=== PATIENT | male | born 1975 | race Caucasian/White ===

== ENCOUNTER → 2020-05-06 13:11 | Outpatient (BNVA) | payer BC, SELFPAY | PROVIDERS: PCP Internal Medicine; Referring Provider Internal Medicine; Visit Provider Physician Assistant | DX: Z76.89 Persons encountering health services in other specified circumstances (principal) ==

== ENCOUNTER → 2020-05-08 11:49 | Outpatient (BNVA) | payer BC, SELFPAY | PROVIDERS: PCP Internal Medicine; Referring Provider Internal Medicine; Visit Provider Physician Assistant | DX: Z76.89 Persons encountering health services in other specified circumstances (principal) ==

== ENCOUNTER 2020-06-26 07:12 | Outpatient (REF) | payer BC, SELFPAY | END 2020-06-26 07:13 | disposition home or self-care (01) | LOC: HO.LAB 07:12 | PROVIDERS: Visit Provider Internal Medicine | DX: Z20.828 Contact with and (suspected) exposure to other viral communicable diseases (principal) | CPT/HCPCS: C9803; U0003 ==

== ENCOUNTER 2020-09-25 07:31 | Outpatient (REF) | payer BC, SELFPAY | END 2020-09-25 07:32 | disposition home or self-care (01) | LOC: HO.WFDLDS 07:31 | PROVIDERS: PCP Nurse Practitioner Family; Visit Provider Internal Medicine | DX: Z20.822 Contact with and (suspected) exposure to COVID-19 (principal) | CPT/HCPCS: 36415; C9803; U0003; U0005 ==

== ENCOUNTER 2021-07-10 09:42 | Outpatient (REF) | payer OTHER, SELFPAY ==
[2021-07-10 12:24] LABS: Alanine Aminotransferase 62 U/L (0-40); Albumin Level 4.2 g/dL (3.5-5.0); Alkaline Phosphatase 98 U/L (39-117); Anion Gap 11 (12-20); Aspartate Amino Transferase 31 U/L (5-37); Bilirubin Total 0.9 mg/dL (0.0-1.0); Blood Urea Nitrogen 21 mg/dL (9-16); Calcium 9.7 mg/dL (8.4-10.2); Carbon Dioxide 26 mmol/L (22-29); Chloride 107 mmol/L (96-108); Cholesterol 213 mg/dL; Estimated Glomerular Filt Rate 59; Glucose Fasting 99 mg/dL (60-99); HDL Cholesterol 35 mg/dL; LDL Cholesterol Calculated 145 mg/dl; Potassium 4.3 mmol/L (3.3-5.1); Sodium 140 mmol/L (135-145); Total Protein 7.2 g/dL (6.5-8.0); Triglycerides 167 mg/dL
[2021-07-10 12:39] LABS: PSA,Total (Free>4and<10) 0.76 ng/mL (0.00-4.00)
[2021-07-10 12:45] LABS: TSH reflex Free T4 1.45 uIU/mL (0.32-4.0)
[2021-07-11 03:56] LABS: SARS COV2 IgG Negative (Negative)
[2021-07-11 04:36] LABS: Hepatitis A Antibody IgM 0.28 Index (0-0.79); ~Hepatitis A Antibody IgM Nonreactive (Nonreactive); ~Hepatitis B Surface Antibody NONREACTIVE (Nonreactive)
[2021-07-11 05:06] LABS: HBc Num1 0.16 S/CO (0.00-0.79); HBsAGNum1 0.18 S/CO (0.00-0.99); Hepatitis B Core Antibody Nonreactive (Nonreactive); Hepatitis B Surface Antigen Negative (Negative); ~HepC Num1 0.21 S/CO (0.00-0.79); ~Hepatitis C Antibody Nonreactive (Nonreactive)
[2021-07-12 05:31] LABS: Rubella IgG Antibody >33.00 Index
[2021-07-16 16:41] LABS: Testosterone, Free 92.6 pg/mL (35.0-155.0); Testosterone, Total 423 ng/dL (250-1100)
== END 2021-07-10 09:43 | disposition home or self-care (01) ==
LOC: HO.WFDLDS 09:42
PROVIDERS: Absent Provider Nurse Practitioner Family; Visit Provider Urology
DX: Z00.00 Encounter for general adult medical examination without abnormal findings (principal); Z12.5 Encounter for screening for malignant neoplasm of prostate; Z20.822 Contact with and (suspected) exposure to COVID-19; E29.1 Testicular hypofunction; Z28.3 Underimmunization status; Z80.42 Family history of malignant neoplasm of prostate
CPT/HCPCS: 36415; 80053; 80061; 84153; 84402; 84403; 84443; 86704; 86706; 86709; 86735; 86762; 86765; 86769; 86787; 86803; 87340

== ENCOUNTER → 2021-07-20 11:29 | Outpatient (BNVA) | payer OTHER, SELFPAY | PROVIDERS: PCP Nurse Practitioner Family; Visit Provider Urology | DX: E29.1 Testicular hypofunction (principal) | CPT/HCPCS: 99212 ==

== ENCOUNTER 2021-09-03 10:24 | Outpatient (REF) | payer OTHER, SELFPAY ==
--- NOTE | ~2021-09-03 | US_ITS ---
EXAMINATION: US ABDOMEN COMPLETE CLINICAL INFORMATION: Abnormal levels of other serum enzymes. COMPARISON: Abdominal ultrasound complete 01/29/2018. TECHNIQUE: Real-time imaging of the abdominal viscera. Technically limited study secondary to bowel gas. FINDINGS: PANCREAS: Not visualized due to bowel gas ABDOMINAL AORTA: The proximal, mid, and distal segments are normal in caliber. INFERIOR VENA CAVA: Visualized portions are normal. LIVER: The liver is normal in size. The liver contour is normal. Liver echotexture is increased probably representing fatty infiltration. There is a hypoechoic area adjacent to the gallbladder, a characteristic location of focal fatty sparing. There is a 1.4 x 2 x 1.6 cm cyst in the right lobe of the liver. There is no intrahepatic biliary duct dilatation seen. GALLBLADDER: Normal. The gallbladder is physiologically distended without evidence of stones, sludge, polyps, wall thickening or pericholecystic fluid. COMMON BILE DUCT: Normal in caliber measuring 0.3 cm in diameter. RIGHT KIDNEY: Normal. No hydronephrosis. No renal calculi or focal parenchymal lesions. The kidney measures 11.2 cm in maximum dimension. LEFT KIDNEY: There is a 1.1 x 0.7 x 1 cm cyst in the midpole. No hydronephrosis or renal calculi. The kidney measures 12.1 cm in maximum dimension. SPLEEN: Normal. The spleen measures 12.3 cm in maximum dimension. FREE FLUID: None. US/US abdomen complete IMPRESSION: Echogenic liver probably representing fatty infiltration. Liver and left renal cysts. Limited visualization of the pancreas.
== END 2021-09-03 10:25 | disposition home or self-care (01) ==
LOC: HO.HMGCX 10:24
PROVIDERS: PCP Nurse Practitioner Family; Visit Provider Nurse Practitioner Family
DX: R74.8 Abnormal levels of other serum enzymes (principal)
CPT/HCPCS: 76700

== ENCOUNTER → 2021-11-05 15:34 | Outpatient (BNVA) | payer OTHER, SELFPAY | PROVIDERS: PCP Nurse Practitioner Family; Visit Provider Nurse Practitioner Family | DX: K76.89 Other specified diseases of liver (principal); R74.8 Abnormal levels of other serum enzymes | CPT/HCPCS: 99202 ==

== ENCOUNTER 2021-11-16 08:33 | Outpatient (REF) | payer OTHER, SELFPAY ==
[2021-11-16 11:53] LABS: Alanine Aminotransferase 36 U/L (0-40); Albumin Level 4.1 g/dL (3.5-5.0); Alkaline Phosphatase 83 U/L (39-117); Aspartate Amino Transferase 26 U/L (5-37); Bilirubin Direct 0.2 mg/dL (0.0-0.5); Bilirubin Total 0.6 mg/dL (0.0-1.0); Blood Urea Nitrogen 21 mg/dL (9-16); C Reactive Protein 0.07 mg/dL (< or = 0.50); Estimated Glomerular Filt Rate 59; Lipase 33 U/L (8-78)
[2021-11-16 11:55] LABS: Ferritin 141 ng/mL (20-250)
[2021-11-16 12:11] LABS: Folate 12.9 ng/mL (> or = 4.0); Vitamin B12 431 pg/mL (200-900)
[2021-11-20 12:42] LABS: Alpha Fetoprotein 3.5 ng/mL (<6.1)
[2021-11-20 18:36] LABS: FIB-ALT 33 U/L (9-46); FIB-Alpha-2-Macroglobulin 141 mg/dL (106-279); FIB-Apolipoprotein A1 111 mg/dL (94-176); FIB-GGT 48 U/L (3-95); FIB-Haptoglobin 75 mg/dL (43-212); FIB-Total Bilirubin 0.6 mg/dL (0.2-1.2); Liver Fibrosis Score 0.29; Liver Fibrosis Stage F1; Nec Inflam Act Grade A0; Nec Inflam Act Score 0.17
[2021-11-22 15:41] LABS: Vitamin D 25-OH, D2 <4 ng/mL; Vitamin D 25-OH, D3 22 ng/mL; Vitamin D 25-OH, Total 22 ng/mL (30-100)
== END 2021-11-16 08:34 | disposition home or self-care (01) ==
LOC: HO.HMGCLDS 08:33
PROVIDERS: PCP Nurse Practitioner Family; Visit Provider Nurse Practitioner Family
DX: R10.11 Right upper quadrant pain (principal); R19.7 Diarrhea, unspecified; R79.89 Other specified abnormal findings of blood chemistry; E55.9 Vitamin D deficiency, unspecified; K58.9 Irritable bowel syndrome, unspecified; R74.8 Abnormal levels of other serum enzymes
CPT/HCPCS: 36415; 80076; 81596; 82105; 82306; 82565; 82607; 82728; 82746; 83690; 84520; 86140

== ENCOUNTER 2021-11-22 17:43 | Outpatient (REF) | payer OTHER, SELFPAY ==
--- NOTE | ~2021-11-22 | MR_ITS ---
EXAMINATION: MR ABDOMEN WITHOUT AND WITH CONTRAST CLINICAL INFORMATION: Abdominal pain. Liver disease. COMPARISON: Previous abdominal ultrasound August 2021 TECHNIQUE: MR abdomen was performed without and with use of 10 mL intravenous Gadavist gadolinium contrast. Postcontrast images are performed in multiphase dynamic sequences. Imaging was performed in 3 planes. FINDINGS: LUNG BASES: The visualized lung bases are unremarkable. LIVER, GALLBLADDER, AND BILIARY TREE: The liver is normal in size, smooth in contour, and normal in signal. There is fatty infiltration of the liver. There are several small liver cysts, largest measuring 1.5 x 2.2 cm in the anterior segment of the right lobe of the liver. There is linear low signal seen in the peripheral lateral segment of the left lobe. It is uncertain whether this could correspond to pneumobilia or calcification. Parasitic disease of the liver could also be considered. No corresponding abnormality is seen on ultrasound. This could be better delineated by CT. The gallbladder is normal. There is no intra or extrahepatic biliary duct dilatation. PANCREAS: Unremarkable. SPLEEN: Normal. ADRENAL GLANDS: Normal. KIDNEYS AND URETERS: The kidneys are normal in size, shape, and enhance symmetrically. No hydronephrosis. There is a small cyst in the left kidney. The kidneys are otherwise normal. No perinephric stranding. GASTROINTESTINAL TRACT: There is mild diverticulosis of the colon. No ascites or fluid collection. ABDOMINAL WALL: No significant hernia is appreciated. LYMPH NODES: No lymphadenopathy. VASCULAR: Unremarkable. OSSEOUS STRUCTURES: Marrow signal normal. There is degenerative disc disease. MR/MR abdomen wo/w con IMPRESSION: Fatty liver. Liver and left renal cysts. Linear branching low signal in the peripheral lateral segment of the left lobe of the liver. Differential would include pneumobilia, calcification and possibly a parasitic disease. No corresponding abnormality is seen on prior ultrasound. This could be better delineated with CT scan of the liver is clinically indicated.
== END 2021-11-22 17:44 | disposition home or self-care (01) ==
LOC: HO.MRI 17:43
PROVIDERS: Visit Provider Nurse Practitioner Family
DX: K76.89 Other specified diseases of liver (principal)
CPT/HCPCS: 74183; A9585

== ENCOUNTER → 2022-01-14 16:10 | Outpatient (BNVA) | payer OTHER, SELFPAY | PROVIDERS: PCP Nurse Practitioner Family; Visit Provider Nurse Practitioner Family | DX: K76.89 Other specified diseases of liver (principal); R74.01 Elevation of levels of liver transaminase levels | CPT/HCPCS: 99212 ==

== ENCOUNTER 2022-01-16 07:16 | Outpatient (REF) | payer OTHER, SELFPAY ==
[2022-01-16 10:55] LABS: Hemoglobin 18.5 g/dl (14.0-18.0); Mean Corpuscular HGB Conc 33.3 g/dl (31.0-36.0); Mean Corpuscular Hemoglobin 31.1 pg (27.0-33.0); Mean Corpuscular Volume 93.4 fL (80.0-98.0); Mean Platelet Volume 11.2 fL (9.4-12.4); Platelet Count 145 X10*3/uL (160-400); Red Blood Count 5.95 X10*6/uL (4.60-5.80); Red Cell Distribution Width 12.4 % (11.0-16.0); White Blood Count 5.4 X10*3/uL (4.8-10.8)
[2022-01-16 10:56] LABS: Hematocrit 55.6 % (42.0-52.0)
[2022-01-16 11:31] LABS: Prostate Specific Antigen 0.68 ng/mL (<0.05-4.0)
[2022-01-22 13:21] LABS: Testosterone, Total 622 ng/dL (250-1100)
== END 2022-01-16 07:17 | disposition home or self-care (01) ==
LOC: HO.WFDLDS 07:16
PROVIDERS: Visit Provider Urology
DX: Z12.5 Encounter for screening for malignant neoplasm of prostate (principal); E29.1 Testicular hypofunction
CPT/HCPCS: 36415; 84153; 84403; 85027

== ENCOUNTER → 2022-05-20 16:08 | Outpatient (BNVA) | payer OTHER, MEDICAID, SELFPAY | PROVIDERS: PCP Nurse Practitioner Family; Visit Provider Nurse Practitioner Family | DX: K76.89 Other specified diseases of liver (principal) | CPT/HCPCS: 99212 ==

== ENCOUNTER 2022-07-17 08:50 | Outpatient (REF) | payer OTHER, SELFPAY ==
[2022-07-17 11:21] LABS: Hematocrit 53.4 % (42.0-52.0)
[2022-07-23 13:13] LABS: Testosterone, Total 670 ng/dL (250-1100)
== END 2022-07-17 08:51 | disposition home or self-care (01) ==
LOC: HO.WFDLDS 08:50
PROVIDERS: Visit Provider Urology
DX: Z12.5 Encounter for screening for malignant neoplasm of prostate (principal); E29.1 Testicular hypofunction
CPT/HCPCS: 36415; 84153; 84403; 85014

== ENCOUNTER → 2022-07-30 10:22 | Outpatient (BNVA) | payer OTHER, MEDICAID, SELFPAY | PROVIDERS: PCP Nurse Practitioner Family; Visit Provider Urology | DX: E29.1 Testicular hypofunction (principal) ==

== ENCOUNTER 2022-08-09 09:37 | Outpatient (REF) | payer OTHER, SELFPAY ==
[2022-08-09 12:15] LABS: Blood Urea Nitrogen 24 mg/dL (9-16); Estimated Glomerular Filt Rate 53
== END 2022-08-09 09:38 | disposition home or self-care (01) ==
LOC: HO.WFDLDS 09:37
PROVIDERS: Visit Provider Nurse Practitioner Family
DX: R10.11 Right upper quadrant pain (principal)
CPT/HCPCS: 36415; 82565; 84520

== ENCOUNTER 2022-10-21 15:08 | Outpatient (REF) | payer OTHER, SELFPAY ==
--- NOTE | ~2022-10-21 | CT_ITS ---
EXAMINATION: CT ABDOMEN AND PELVIS WITH CONTRAST CLINICAL INFORMATION: Fatty liver. Liver and left renal cyst. COMPARISON: MRI abdomen 11/26/2021. TECHNIQUE: Multidetector volumetric images were obtained from the superior aspect of the liver through the pubic symphysis following administration 85 mL of Omnipaque 350 intravenous contrast. Sagittal and coronal reformatted images were obtained on the technologist's workstation. Oral contrast: No This CT examination was performed using dose optimization techniques as appropriate, variously including the following: *Automated exposure control *Adjustment of mA and/or kV according to patient size (this includes techniques or standardized protocols for targeted exams where dose is matched to indication/reason for exam; i.e. extremities or head) *Use of iterative reconstruction technique DLP: 416 mGy-cm. FINDINGS: LUNG BASES: The visualized lung bases are unremarkable. LIVER, GALLBLADDER, AND BILIARY TREE: The liver is normal in size, shape, and attenuation. There are small hypodense lesions in the right lobe, largest measuring 2.4 cm and 17 also units likely simple cysts. No abnormality seen in the left hepatic lobe as was questioned on the previous MRI. No calcification seen. The gallbladder is unremarkable with no evidence of radiopaque gallstones, gallbladder wall thickening, or obvious pericholecystic inflammatory changes. PANCREAS: Unremarkable. SPLEEN: Unremarkable. ADRENAL GLANDS: Unremarkable. KIDNEYS AND URETERS: The kidneys are normal in size, shape, and attenuation. No hydronephrosis, hydroureter, or calculi seen. No perinephric stranding. BLADDER: Unremarkable. GASTROINTESTINAL TRACT: There is moderate scattered stool in the colon without any significant distention. The small bowel loops are normal caliber. Appendix is normal caliber. ABDOMINAL WALL: No significant hernia is appreciated. LYMPH NODES: Normal. VASCULAR: There is arthroscopic calcification of abdominal aorta without aneurysmal dilatation. PELVIC VISCERA: No free fluid or free air seen. There is moderate prostatomegaly with central gland calcification. OSSEOUS STRUCTURES: No aggressive lytic or sclerotic process seen. CT/CT abdomen pelvis w IV con IMPRESSION: 1. No abnormality seen in the left hepatic lobe as was questioned on the previous MRI. There are 2 small hypodense lesions in the right lobe likely cysts. 2. Mild constipation. 3. Moderate prostatomegaly with central gland calcification. Fleischner guidelines were followed.
[2022-10-21] MEDS: iohexoL 350 MG/ML 100 ML INFUS..BTL IV (15:36)
[2022-10-23 11:20] LABS: Creatinine POC 1.2 mg/dL (0.5-1.4); GFR POC > 60
== END 2022-10-21 15:09 | disposition home or self-care (01) ==
LOC: HO.CT 15:08
PROVIDERS: Visit Provider Nurse Practitioner Family
DX: K76.89 Other specified diseases of liver (principal)
CPT/HCPCS: 74177; 82565; Q9967

== ENCOUNTER 2022-11-15 10:24 | Outpatient (REF) | payer OTHER, SELFPAY ==
--- NOTE | ~2022-11-15 | US_ITS ---
EXAMINATION: US ABDOMEN LIMITED CLINICAL INFORMATION: Liver cyst. COMPARISON: CT abdomen and pelvis 10/21/2022. MRI abdomen 11/22/2021. Ultrasound abdomen complete 09/03/2021 and 01/29/2018. TECHNIQUE: Real-time imaging of the right upper quadrant abdominal viscera. FINDINGS: PANCREAS: Largely obscured by overlapping bowel gas. LIVER: The liver is normal in size. The liver contour is normal. There is diffuse increased liver parenchymal echogenicity. Within the right hepatic lobe, a 2.0 x 2.4 x 2.5 cm lobulated simple cyst is redemonstrated, consistent with prior MRI findings. This shows no associated color Doppler flow. There is no intrahepatic biliary duct dilatation seen. GALLBLADDER: Normal. The gallbladder is physiologically distended without evidence of stones, sludge, polyps, wall thickening or pericholecystic fluid. COMMON BILE DUCT: Normal in caliber measuring 0.5 cm in diameter. RIGHT KIDNEY: Normal. No hydronephrosis. No renal calculi or focal parenchymal lesions. The kidney measures 11.3 cm in maximum dimension. FREE FLUID: None. US/US abdomen limited IMPRESSION: 1. There is generalized increase in hepatic echotexture, consistent with fatty infiltration or hepatocellular disease. Please correlate clinically. No focal hepatic mass or intrahepatic biliary dilatation is seen. 2. A 2.5 cm benign, simple cyst is redemonstrated within the anterior segment of the right hepatic lobe.
[2022-11-15 13:55] LABS: MANUAL DIFF FLAG NO
[2022-11-15 14:13] LABS: Basophils Percent Auto 0.5 % (0-2); Eosinophils Absolute Auto 0.1 X10*3/uL (0.0-0.4); Eosinophils Percent Auto 1.4 % (0-4); Hematocrit 53.9 % (42.0-52.0); Hemoglobin 18.4 g/dl (14.0-18.0); Imm Gran Abs Auto 0.04 X10*3/uL (0.00-0.03); Imm Gran Pct Auto 0.6 % (0.0-0.4); Lymphocytes Absolute Auto 1.2 X10*3/uL (1.2-4.9); Lymphocytes Percent Auto 18.4 % (20-40); Mean Corpuscular HGB Conc 34.1 g/dl (31.0-36.0); Mean Corpuscular Hemoglobin 31.8 pg (27.0-33.0); Mean Corpuscular Volume 93.1 fL (80.0-98.0); Mean Platelet Volume 11.9 fL (9.4-12.4); Monocytes Absolute Auto 1.2 X10*3/uL (0.1-1.2); Monocytes Percent Auto 18.7 % (2-11); Neutrophils Percent Auto 60.4 % (45-73); Platelet Count 111 X10*3/uL (160-400); Red Blood Count 5.79 X10*6/uL (4.60-5.80); Red Cell Distribution Width 12.7 % (11.0-16.0); White Blood Count 6.6 X10*3/uL (4.8-10.8)
[2022-11-15 14:16] LABS: Appearance Urine Clear; Color Urine Dark Yellow; Glucose Urine UA Negative (Negative); Leukocyte Esterase Urine Negative (Negative); Nitrite Urine Negative (Negative); Specific Gravity - Urine >= 1.030 (1.005-1.025); Urine Blood Negative (Negative); Urine Ketones Trace mg/dL (Negative); Urine Protein Trace mg/dL (Neg-Trace)
[2022-11-15 14:31] LABS: Alanine Aminotransferase 39 U/L (0-40); Alkaline Phosphatase 85 U/L (39-117); Anion Gap 12 (12-20); Aspartate Amino Transferase 26 U/L (5-37); Bilirubin Direct 0.2 mg/dL (0.0-0.5); Bilirubin Total 0.8 mg/dL (0.0-1.0); Blood Urea Nitrogen 18 mg/dL (9-16); Calcium 8.9 mg/dL (8.4-10.2); Carbon Dioxide 26 mmol/L (22-29); Chloride 108 mmol/L (96-108); Cholesterol 196 mg/dL; Estimated Glomerular Filt Rate 46; Glucose Fasting 87 mg/dL (60-99); HDL Cholesterol 31 mg/dL; LDL Cholesterol Calculated 142 mg/dl; Potassium 4.4 mmol/L (3.3-5.1); Sodium 142 mmol/L (135-145); Total Protein 6.7 g/dL (6.5-8.0); Triglycerides 118 mg/dL
[2022-11-15 14:48] LABS: TSH reflex Free T4 1.21 uIU/mL (0.32-4.0)
== END 2022-11-15 10:25 | disposition home or self-care (01) ==
LOC: HO.HMGCX 10:24
PROVIDERS: Absent Provider Nurse Practitioner Family; PCP Nurse Practitioner Family; Visit Provider Nurse Practitioner Family
DX: Z00.00 Encounter for general adult medical examination without abnormal findings (principal); K76.89 Other specified diseases of liver
CPT/HCPCS: 36415; 76705; 80053; 80061; 80076; 81003; 82248; 84443; 85025

== ENCOUNTER → 2022-11-20 14:48 | Outpatient (BNVA) | payer OTHER, SELFPAY | PROVIDERS: PCP Nurse Practitioner Family; Visit Provider Nurse Practitioner Family | DX: Z12.11 Encounter for screening for malignant neoplasm of colon (principal); K76.89 Other specified diseases of liver; D58.2 Other hemoglobinopathies; R74.8 Abnormal levels of other serum enzymes | CPT/HCPCS: 99212 ==

== ENCOUNTER 2023-03-12 09:28 | Outpatient (REF) | payer OTHER, SELFPAY ==
[2023-03-12 11:29] LABS: MANUAL DIFF FLAG NO
[2023-03-12 11:52] LABS: Basophils Percent Auto 0.4 % (0-2); Eosinophils Absolute Auto 0.1 X10*3/uL (0.0-0.4); Eosinophils Percent Auto 0.9 % (0-4); Hemoglobin 19.1 g/dl (14.0-18.0); Imm Gran Abs Auto 0.06 X10*3/uL (0.00-0.03); Imm Gran Pct Auto 0.9 % (0.0-0.4); Lymphocytes Absolute Auto 1.3 X10*3/uL (1.2-4.9); Lymphocytes Percent Auto 19.2 % (20-40); Mean Corpuscular HGB Conc 34.2 g/dl (31.0-36.0); Mean Corpuscular Hemoglobin 31.9 pg (27.0-33.0); Mean Corpuscular Volume 93.3 fL (80.0-98.0); Mean Platelet Volume 11.6 fL (9.4-12.4); Monocytes Absolute Auto 0.7 X10*3/uL (0.1-1.2); Neutrophils Absolute Auto 4.7 x10*3/uL (2.0-8.3); Neutrophils Percent Auto 68.6 % (45-73); Platelet Count 139 X10*3/uL (160-400); Red Blood Count 5.99 X10*6/uL (4.60-5.80); Red Cell Distribution Width 12.5 % (11.0-16.0); White Blood Count 6.8 X10*3/uL (4.8-10.8)
[2023-03-12 11:54] LABS: Hematocrit 55.9 % (42.0-52.0)
[2023-03-12 11:59] LABS: Appearance Urine Clear; Color Urine Yellow; Glucose Urine UA Negative (Negative); Leukocyte Esterase Urine Negative (Negative); Nitrite Urine Negative (Negative); PH 6.5 (5.0-9.0); Urine Blood Negative (Negative); Urine Ketones Negative (Negative); Urine Protein Negative (Neg-Trace)
[2023-03-12 12:30] LABS: Alanine Aminotransferase 42 U/L (0-40); Albumin Level 4.1 g/dL (3.5-5.0); Alkaline Phosphatase 74 U/L (39-117); Anion Gap 12 (12-20); Aspartate Amino Transferase 28 U/L (5-37); Bilirubin Total 0.6 mg/dL (0.0-1.0); Blood Urea Nitrogen 19 mg/dL (9-16); Calcium 9.2 mg/dL (8.4-10.2); Carbon Dioxide 24 mmol/L (22-29); Chloride 109 mmol/L (96-108); Cholesterol 230 mg/dL; Estimated Glomerular Filt Rate > 60; Glucose Fasting 96 mg/dL (60-99); Glucose Random 95 mg/dL (60-115); HDL Cholesterol 42 mg/dL; LDL Cholesterol Calculated 169 mg/dl; Potassium 4.4 mmol/L (3.3-5.1); Sodium 141 mmol/L (135-145); Total Protein 7.2 g/dL (6.5-8.0); Triglycerides 96 mg/dL
[2023-03-12 12:38] LABS: Prostate Specific Antigen 0.71 ng/mL (<0.05-4.0)
[2023-03-18 10:28] LABS: Testosterone, Total 885 ng/dL (250-1100)
== END 2023-03-12 09:29 | disposition home or self-care (01) ==
LOC: HO.WFDLDS 09:28
PROVIDERS: Nurse Practitioner Family; Visit Provider Urology
DX: Z00.00 Encounter for general adult medical examination without abnormal findings (principal); Z12.5 Encounter for screening for malignant neoplasm of prostate; D58.2 Other hemoglobinopathies; E29.1 Testicular hypofunction
CPT/HCPCS: 36415; 80053; 80061; 81003; 81219; 81270; 81279; 81339; 84153; 84403; 84443; 85025

== ENCOUNTER 2023-04-15 11:49 | Outpatient (AMB) | payer OTHER, SELFPAY ==
--- NOTE | 2023-04-15 11:49 | A.OFFVIS_ITS ---
Intake Intake Visit Reasons: 6M PSA/Testosterone(set) Intake Note: Patient presents for Tele Visit follow up PSA/Testosterone (psa 0.71) (testosterone 885) Urology Medication: Sildenafil, Testosterone Blood Thinner: None Press Bucker Required: No Allergies No Known Allergies Allergy (Verified 04/15/23 22:09) Medication List - Last Reconciled 04/15/23 by THIERNO ThurmanP- amlodipine 10 mg PO DAILY bempedoic acid-ezetimibe 180-10 mg 1 tab PO DAILY bisacodyl (Dulcolax (bisacodyl)) 10 mg (2 x 5 mg) PO ONCE 1 day lisinopril 5 mg PO DAILY needle (disp) 25 gauge (BD Regular Bevel [place]) As directed for testosterone injection polyethylene glycol 3350 (Miralax) 238 grams PO ONCE sertraline 25 mg PO DAILY 90 days sildenafil 100 mg PO DAILY PRN 30 days syringe (disposable) (BD Luer-Nery Syringe) As directed syringe with needle (BD Tuberculin Syringe) 1 mL miscellaneous DIRECTED testosterone cypionate 50 mg (0.25 mL) subcut .twice weekly 28 days HPI HPI Comments History of Present Illness Details Antwon is a very pleasant 47 year old male patient of . He is being follow-up on today via video telehealth for his hypogonadism. In discussion with the patient today reports to be doing and feeling well. Recent lab results reviewed with the patient today. PSA 03/26--0.7 Testosterone 03/26-- 885 Hemoglobin 03/26--19.1 Hematocrit 03/26--55.9 Patient reports utilizing testosterone therapy from his friend as he had missed his prior and had no refills on his testosterone. Discussed at length importance of taking medications as prescribed. Discussed elevation and testosterone in relation to elevation in hemoglobin and hematocrit. Discussed therapeutic phlebotomy. Patient reports he will utilize testosterone therapy as prescribed. Discussed at length testosterone therapy in relation to hemoglobin and hematocrit. Discussed effects of increased hemoglobin and hematocrit. Patient otherwise denies any bothersome urinary issues or concerns at this time. He reports be happy with current voiding parameters. Discussed obtaining redraw of hemoglobin and hematocrit in 1 month for further assessment evaluation on prescribed testosterone therapy and not testosterone therapy he had been using from his friend. PREVIOUS OFFICE NOTE INFORMATION Hypogonadism:? Current dosing 50units 2 times weekly ? He presents today for?further evaluation and followup of his hypogonadism - ?- on injectable - Injection Days - Fri/Fri, Labs: Wed pm ?- discussed laboratory results.? Initial symptoms include? erectile dysfunction ?Yes ? decreased libido ?No ? change in mood/depression ?No ? in muscle size/strength ?No ? increased fatigue/malaise ?Yes ? increased abdominal fat ?No ? tender breasts/gynecomastia ?Yes ? hair loss ?No ? osteopenia ?No ? The onset of symptoms has been?over the past few years - 2012 started using testosterone and it. Was using up to 600 mg per week. Currently injecting 200 mg per week. In addition has used anvar and hCG in the past. Has had gynecomastia with discharge. Also used trenbolone. ?- 09/20 - pulsed restart ?- 01/18 clomid 50mg TIW ?- 03/20 clomid daily, 12/20 T replacement 100 units per week subcutaneous, add anastrazole 08/07 tab, 03/22 Lower T to 80U per week, ?01/21 reconfirm 80 units per week.? Erectile status?erections are adequate for penetration.? Associate conditions include? other ?external testosterone use ? Laboratory results?12/18 , testosterone 245 , low, LH , low 1.5 ?04/20 T 240, 04/21 T 915, 12/20 T 440, 01/20 High free T, low SHBG, high estradiol ?01/21 T 1200, hCT 52, 07/24 T 423, 01/23 T 622 H 55.6, 07/25 T 670 H 53.4 P 0.60 ? Current therapy includes?injectable exogenous testosterone ?- , aromatase inhibitor - anastrazole 1/4 tablet twice per week ? Prior therapy includes?- pulsed restart - unsuccessful ?- T replacement, aromatase inhibitor ? Diagnosis based on history and laboratory results?Hypogonadotrophic Hypogonadism.? 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 Current occupational exposures/hazards: No Cognitive needs: No Hearing needs: No Vision needs: No Review of Systems Const All systems reviewed & are unremarkable except as noted in HPI and below Physical Exam Const General: cooperative, healthy appearing, comfortable, no acute distress, well developed, alert and awake Orientation/consciousness: patient oriented x3 Resp Effort & Inspection: normal respiratory effort and able to speak in complete sentences Neuro General: patient oriented x3 Psych Appearance: grossly normal and well kempt Mental Status: mental status grossly normal Speech and movement: Clear speech present Affect: normal affect Attitude: cooperative Thought content: Normal thought content present Insight: Fair insight present (Psych) Judgement: Fair judgement present (Psych) Assessment & Plan Assessment & Plan (1) Hypogonadism in male: Code(s): E29.1 - Testicular hypofunction Plan Recent testosterone, PSA, hemoglobin, and hematocrit results reviewed with the patient today; as noted above. Discussed at length importance of taking medications as prescribed. Discussed and stressed the importance of obtaining redraw hemoglobin hematocrit in 1 month for further assessment evaluation. Refills provided and stressed the importance of taking medication as prescribed and not taking other individuals medications as patient reports dosages were higher and was unable to obtain an appointment for refills and did not want to go without testosterone therapy Discussed at length affects of elevated hemoglobin and hematocrit. Patient otherwise denies any bothersome urinary issues or concerns at this time. Follow-up in office in 3 months with labs to be completed prior; or sooner with any issues, concerns, and or questions. Orders: Orders Hematocrit 3 Months E29.1 - Testicular hypofunction Testosterone, Free/Total 3 Months E29.1 - Testicular hypofunction Hemoglobin 1 Month E29.1 - Testicular hypofunction Hematocrit 1 Month E29.1 - Testicular hypofunction Hemoglobin 3 Months E29.1 - Testicular hypofunction Medications: Refilled testosterone cypionate inject 0.25 mls subcutaneously twice a week 50 mg (0.25 mL) subcut .twice weekly 28 days 2 mL 5RF E29.1 - Testicular hypofunction syringe with needle (BD Tuberculin Syringe) 1 mL miscellaneous DIRECTED 20 ea 2RF sildenafil administer 30 minutes to 4 hours before activity 100 mg PO DAILY 30 days PRN 30 tabs 2RF sexual activity syringe (disposable) (BD Luer-Nery Syringe) As directed 50 ea 0RF sildenafil administer 30 minutes to 4 hours before activity 100 mg PO DAILY 30 days PRN 30 tabs 2RF sexual activity Patient Instructions: The patient had an opportunity to ask questions regarding the treatment plan. All questions were answered. Physical exam, labs, and imaging were discussed and reviewed in detail. As well as risks, benefits, and discussion of treatment choices. No major barriers to understanding were identified. The patient expressed understanding and agreement with the above treatment plan. The patient was made aware they should contact our office by phone for worsening of their current condition, the appearance of new symptoms, or with any questions or concerns. Compliance is encouraged with any medications and follow up testing that is ordered. It is a privilege to be allowed the opportunity to participate in? your urological care.? Again, if you have any questions or concerns If you have any questions or concerns please do not hesitate to contact me. The office is [phone]. This note is constructed using voice recognition software. While every effort has been made to ensure accuracy youth development specialist errors may have been included. Yours sincerely, PREETI Thurman- Telehealth Telehealth Location of provider rendering services: practice address Location of patient: address on file Patient Identification confirmed using: Name, : Yes Telehealth method: video Patient verbally consented to treatment: Yes Patient verbally consented to billing insurance company: Yes Patient informed of any privacy concerns related to visit: Yes Minutes spent on Phone/Video with Pt.: 20 Coding Level of Care Code Tele Est Pt Level 4 (78243) Diagnoses Hypogonadism in male E29.1
== END 2023-04-15 12:30 | disposition home or self-care (01) ==
LOC: HO.HUSH 11:49
PROVIDERS: PCP Nurse Practitioner Family; Visit Provider Nurse Practitioner Family
DX: E29.1 Testicular hypofunction (principal)
CPT/HCPCS: 99214

== ENCOUNTER → 2023-04-15 11:49 | Outpatient (BNVA) | payer OTHER, SELFPAY | PROVIDERS: PCP Nurse Practitioner Family; Visit Provider Nurse Practitioner Family ==

== ENCOUNTER 2023-05-22 09:58 | Outpatient (AMB) | payer OTHER, SELFPAY ==
--- NOTE | 2023-05-22 10:00 | MHC.PC.OV ---
Vital Signs 05/22/23 10:03 Height 6 ft Weight 231 lb BMI 31.3 BP 110/70 Blood Pressure Location Rt brachial Position Sitting Pulse 88 Pulse Source Pulse Oximeter Pulse Oximetry (%) 98 Oxygen Delivery Method Room Air Intake Visit Reasons: question lipoma on back Allergies No Known Allergies Allergy (Verified 05/22/23 10:09) Medication List - Last Reconciled 05/22/23 by Jon Rivera HUMAN RESOURCES PROJECT COORDINATOR- amlodipine 10 mg PO DAILY bempedoic acid-ezetimibe 180-10 mg 1 tab PO DAILY bisacodyl (Dulcolax (bisacodyl)) 10 mg (2 x 5 mg) PO ONCE 1 day ezetimibe 10 mg PO DAILY 90 days lisinopril 5 mg PO DAILY needle (disp) 25 gauge (BD Regular Bevel [place]) As directed for testosterone injection polyethylene glycol 3350 (Miralax) 238 grams PO ONCE sertraline 25 mg PO DAILY 90 days sildenafil 100 mg PO DAILY PRN 30 days syringe (disposable) (BD Luer-Nery Syringe) As directed syringe with needle (BD Tuberculin Syringe) 1 mL miscellaneous DIRECTED testosterone cypionate 50 mg (0.25 mL) subcut .twice weekly 28 days Tobacco use date assessed: 10/10/22 HPI question lipoma on back HPI Details Pt reports a large growth to his upper back. He does have a hx of lipomas. Pt reports that this has increased in size and is uncomfortable when lying down. Will refer to general surgery. Pt c/o numbness and tingling to his left hand/fingers. He denies any neck pain. Will order EMG/nerve conduction testing. Dyslipidemia: On bempedoic acid-zetia 180-10mg. Will order labs. Denies chest pain, shortness of breath, and dizziness. 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 Ilir Luo, Deepali Aguero, David Perez and colleagues, with an educational patt from [employer] (now [employer]). Review of Systems Const Reports as per HPI Physical exam (Primary Care) Vital Signs: Last Vital Signs Pulse 88 05/22/23 10:03 BP 110/70 05/22/23 10:03 Pulse Ox 98 05/22/23 10:03 Oxygen Delivery Method Room Air 05/22/23 10:03 BMI result Body Mass Index 31.3 Tobacco/Smoking Status: Tobacco use Status Tobacco use date assessed 10/10/22 05/22/23 10:02 Patient Tobacco Use Status Never used Tobacco 05/22/23 10:02 e-Cigarette/Vaping Use Never Used 05/22/23 10:02 Thrive Assessment: Date of Thrive Assessment Date Thrive assessed 10/10/22 05/22/23 10:02 Const General: cooperative Nutritional Appearance: obese Orientation/consciousness: patient oriented x3 Resp Effort & Inspection: normal respiratory effort Auscultation: clear to auscultation bilaterally Cardio Rate: regular rate Rhythm: regular rhythm Heart sounds: S1 normal heart sound present and S2 normal heart sound present Skin Other: large ? lipoma to left upper trap region, not TTP Neuro General: patient oriented x3 Extrem Other: - phalens, - tinels Psych Appearance: grossly normal Mental Status: mental status grossly normal Speech and movement: Normal speech and movement present Affect: normal affect Attitude: cooperative Thought process: Normal thought process present Thought content: Normal thought content present Insight: Good insight present (Psych) Judgement: Good judgement present (Psych) Assessment and Plan Assessment & Plan (1) Lipoma: Code(s): D17.9 - Benign lipomatous neoplasm, unspecified Plan: Referred to general surgery (2) Dyslipidemia: Code(s): E78.5 - Hyperlipidemia, unspecified Plan: Labs ordered (3) Numbness and tingling in left hand: Code(s): R20.0 - Anesthesia of skin; R20.2 - Paresthesia of skin Plan: EMG/nerve conduction testing ordered Plan The patient agreed to the use of a medical scheduler for this encounter. Scribed for PREETI Hernandez- by Gilda Spears medical scheduler, on 05/22/2023 at 10:10 EST Orders: Orders Complete Blood Count Auto Diff Today E78.5 - Hyperlipidemia, unspecified NE electromyogram (EMG) Today R20.0 - Anesthesia of skin, R20.2 - Paresthesia of skin NE nerve conduction velocity Today R20.0 - Anesthesia of skin, R20.2 - Paresthesia of skin Lipid Panel Today E78.5 - Hyperlipidemia, unspecified Comprehensive [place]. Panel Fast Today E78.5 - Hyperlipidemia, unspecified Referrals General Surgery Referral D17.9 - Benign lipomatous neoplasm, unspecified Coding Level of Care Code Est Pt Level 3 (93003) Diagnoses Lipoma D17.9 Dyslipidemia E78.5 Numbness and tingling in left hand R20.0; R20.2
[2023-05-22 10:03] VITALS: BP 110/70; PULSE 88; O2SAT 98; BMI 31.3
== END 2023-05-22 10:22 | disposition home or self-care (01) ==
PROVIDERS: PCP Nurse Practitioner Family; Visit Provider Nurse Practitioner Family
DX: D17.9 Benign lipomatous neoplasm, unspecified (principal); E78.5 Hyperlipidemia, unspecified; R20.0 Anesthesia of skin; R20.2 Paresthesia of skin
CPT/HCPCS: 99213

== ENCOUNTER 2023-06-10 08:40 | Outpatient (AMB) | payer OTHER, SELFPAY ==
--- NOTE | 2023-06-10 09:06 | AM.OFFWIN_ITS ---
Intake Vital Signs 06/10/23 09:07 Height 6 ft Weight 229 lb BMI 31.1 BP 130/70 Blood Pressure Location Rt brachial Position Sitting Pulse 76 Pulse Source Pulse Oximeter Temp 98.1 F Temp Source Temporal Artery Scan Pulse Oximetry (%) 98 Intake Visit Reasons: EP, neck rash Intake Note: pt is here for c/o neck rash, since friday. states rash is very itching and swelling Patient Tobacco Use Status: Never used Tobacco Allergies No Known Allergies Allergy (Verified 06/10/23 09:51) Medication List - Last Reconciled 06/10/23 by Chase Liao MD amlodipine 10 mg PO DAILY bempedoic acid-ezetimibe 180-10 mg 1 tab PO DAILY bisacodyl (Dulcolax (bisacodyl)) 10 mg (2 x 5 mg) PO ONCE 1 day ezetimibe 10 mg PO DAILY 90 days lisinopril 5 mg PO DAILY needle (disp) 25 gauge (BD Regular Bevel [place]) As directed for testosterone injection polyethylene glycol 3350 (Miralax) 238 grams PO ONCE sertraline 25 mg PO DAILY 90 days sildenafil 100 mg PO DAILY PRN 30 days syringe (disposable) (BD Luer-Nery Syringe) As directed syringe with needle (BD Tuberculin Syringe) 1 mL miscellaneous DIRECTED testosterone cypionate 50 mg (0.25 mL) subcut .twice weekly 28 days Do you need a note to return to daycare/school/sports/work: Yes HPI EP, neck rash HPI Details 48-year-old male presents to the office for a sick visit. Patient has a rash on the left side of his neck and shoulder and he would like an evaluation for the same. Rashes predominantly itchy with minimal symptoms of pain. No other systemic symptoms. 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 No vesicles or pustules seen. Assessment & Plan Assessment & Plan (1) Herpes zoster: Code(s): B02.9 - Zoster without complications Plan: Owing to the rash confined to the left side and along the dermatomal pattern, the diagnosis of herpes is being considered. Valacyclovir and hydrocortisone cream called in. If symptoms of pain occur to follow-up here. 15 minutes spent on explaining the disease of herpes zoster. Patient has a daycare facility at home and I encouraged him to stay away from the daycare till the rash subsides. Coding Level of Care Code Est Pt Level 4 (16222) Diagnoses Herpes zoster B02.9
[2023-06-10 09:07] VITALS: BP 130/70; PULSE 76; TEMP 36.7; O2SAT 98; BMI 31.1
== END 2023-06-10 10:05 | disposition home or self-care (01) ==
PROVIDERS: PCP Nurse Practitioner Family; Visit Provider Internal Medicine
DX: B02.9 Zoster without complications (principal)
CPT/HCPCS: 99214

== ENCOUNTER 2023-07-03 15:14 | Outpatient (AMB) | payer OTHER, SELFPAY ==
--- NOTE | 2023-07-03 15:16 | MHC.OFFVIS ---
Intake Vital Signs 07/03/23 15:23 Height 6 ft Weight 228 lb 2 oz BMI 30.9 BP 143/84 H Blood Pressure Location Lt brachial Position Sitting Pulse 79 Intake Visit Reasons: Lipoma, upper back Intake Note: Patient is seen in office for evaluation and treatment of a lipoma of the upper back. Pt c/o: onset for yrs, increase in size, admits to pressure, last 3 months feels pins and needles in the finger unsure if unrelated, denies discharge, redness [place] Tanner Required: No Accompanied by: Self / Same As Patient Allergies No Known Allergies Allergy (Verified 07/03/23 15:21) Medication List - Last Reconciled 07/03/23 by Jon Cline MD amlodipine 10 mg PO DAILY bempedoic acid-ezetimibe 180-10 mg 1 tab PO DAILY bisacodyl (Dulcolax (bisacodyl)) 10 mg (2 x 5 mg) PO ONCE 1 day ezetimibe 10 mg PO DAILY 90 days lisinopril 5 mg PO DAILY needle (disp) 25 gauge (BD Regular Bevel [place]) As directed for testosterone injection polyethylene glycol 3350 (Miralax) 238 grams PO ONCE sertraline 25 mg PO DAILY 90 days sildenafil 100 mg PO DAILY PRN 30 days syringe (disposable) (BD Luer-Nery Syringe) As directed testosterone cypionate 50 mg (0.25 mL) subcut .twice weekly 28 days triamcinolone acetonide 0.025% 1 appl topical BID valacyclovir 500 mg PO BID HPI HPI Comments History of Present Illness Details 48-year-old male patient presenting for evaluation of a lipoma of the left upper back. This is been present for several years and is gradually increased in size. He denies any significant pain unless he is lying on his back. He reports a previous lipoma in the left neck which was excised several years ago and determined to be benign. He denies any previous surgery or trauma on his back. He is requesting removal of the large lump. 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 Current occupational exposures/hazards: No Cognitive needs: No Hearing needs: No Vision needs: No Review of Systems Const All systems reviewed & are unremarkable except as noted in HPI and below Denies chills, Denies fever(s), Denies headache(s), Denies poor appetite and Denies weakness ENT Denies headache(s) Card Denies chest pain, Denies irregular heart rhythm, Denies palpitations and Denies dyspnea Resp Denies cough, Denies excessive phlegm production and Denies dyspnea GI Denies abdominal pain, Denies bloating, Denies change in bowel habits, Denies constipation, Denies heartburn, Denies diarrhea, Denies nausea and Denies vomiting Denies difficulty urinating and Denies urinary frequency Musc Denies back pain, Denies muscle weakness and Denies numbness Skin/Breast Denies changing lesions and Denies unusual bruising Neuro Denies headache(s), Denies numbness, Denies paresthesias and Denies weakness Psych Denies anxiety and Denies depression Endo Denies palpitations Blake/Lymph Denies lymphadenopathy Physical Exam Vital Signs: Last Vital Signs Pulse 79 07/03/23 15:23 BP 143/84 H 07/03/23 15:23 BMI result Body Mass Index 30.9 Const General: cooperative and no acute distress Nutritional Appearance: well nourished Orientation/consciousness: patient oriented x3 Limitations: no limitations HEENT Head: Yes normocephalic and Yes atraumatic Ears: hearing grossly normal bilaterally Resp Effort & Inspection: normal respiratory effort, no audible wheezes, no cough and no respiratory distress Cardio Jugular venous distension: no JVD GI Inspection: Yes normal to inspection Back/Spine/Pelvis Back/spine/pelvis image: 1. 10 cm soft tissue mass within the subcutaneous tissue with no central punctum. Findings suggestive of either a large lipoma or epidermal inclusion cyst. Site is minimally tender to palpation. Skin Other: Warm, dry, no rash Neuro General: patient oriented x3 Extrem General: Yes no clubbing, cyanosis or edema Assessment & Plan Assessment & Plan (1) Lipoma: Code(s): D17.9 - Benign lipomatous neoplasm, unspecified Qualifiers: Lipoma location: trunk Qualified Code(s): D17.1 - Benign lipomatous neoplasm of skin and subcutaneous tissue of trunk Plan 48-year-old male patient with a soft tissue mass located in the left upper shoulder posteriorly suggestive of a lipoma or large epidermal inclusion cyst. The lesion measures approximately 10 cm in diameter and is minimally tender to palpation. I recommended an excision either under anesthesia or with local anesthesia. He has decided to proceed with an excision under local anesthesia as a minor surgery. After discussion of the procedure, risks, and alternatives, he consents to excision of the left upper back lipoma. Coding Level of Care Code New Pt Level 4 (78734) Diagnoses Lipoma of torso D17.1 Lipoma location: trunk
[2023-07-03 15:23] VITALS: BP 143/84; PULSE 79; BMI 30.9
== END 2023-07-03 15:51 | disposition home or self-care (01) ==
PROVIDERS: PCP Nurse Practitioner Family; Referring Provider Nurse Practitioner Family; Visit Provider Surgery
DX: D17.1 Benign lipomatous neoplasm of skin and subcutaneous tissue of trunk (principal)
CPT/HCPCS: 99204

== ENCOUNTER → 2023-07-03 15:14 | Outpatient (BNVA) | payer OTHER, SELFPAY | PROVIDERS: PCP Nurse Practitioner Family; Referring Provider Nurse Practitioner Family; Visit Provider Surgery ==

== ENCOUNTER 2023-07-10 09:46 | Outpatient (REF) | payer OTHER, SELFPAY ==
--- NOTE | 2023-07-10 09:49 | EMG_ITS ---
Left median and ulnar motor and sensory studies were performed. Left radial sensory studies were performed and paraspinal muscles were tested with a needle. Left median and lateral antecubital sensory were also performed. IMPRESSION: 1. [id number] left median neuropathy across carpal tunnel. 2. [id number] left ulnar neuropathy across cubital tunnel. MD ROSINA Monzon/TAE / [id number]
== END 2023-07-10 09:47 | disposition home or self-care (01) ==
LOC: HO.NEURO 09:46
PROVIDERS: PCP Nurse Practitioner Family; Visit Provider Nurse Practitioner Family
DX: R20.0 Anesthesia of skin (principal); R20.2 Paresthesia of skin
CPT/HCPCS: 95886; 95910

== ENCOUNTER 2023-07-18 09:45 | Outpatient (REF) | payer OTHER, SELFPAY ==
[2023-07-18 11:28] LABS: Hematocrit 51.6 % (42.0-52.0); Hemoglobin 17.7 g/dl (14.0-18.0)
[2023-07-24 13:32] LABS: Testosterone, Free 165.3 pg/mL (35.0-155.0); Testosterone, Total 683 ng/dL (250-1100)
== END 2023-07-18 09:46 | disposition home or self-care (01) ==
LOC: HO.WFDLDS 09:45
PROVIDERS: Visit Provider Nurse Practitioner Family
DX: E29.1 Testicular hypofunction (principal)
CPT/HCPCS: 36415; 84402; 84403; 85014; 85018

== ENCOUNTER 2023-08-01 13:13 | Outpatient (AMB) | payer OTHER, SELFPAY ==
--- NOTE | 2023-08-01 13:32 | A.OFFVIS_ITS ---
Intake Intake Visit Reasons: 3m/labs Intake Note: Patient presents for Tele Visit follow up PSA/Testosterone (psa 0.71) (testosterone 885) Urology Medication: Sildenafil, Testosterone Blood Thinner: None Armor Reconnaissance Vehicle Driver Required: No Allergies No Known Allergies Allergy (Verified 08/02/23 23:02) Medication List - Last Reconciled 08/02/23 by THIERNO ThurmanP- amlodipine 10 mg PO DAILY bempedoic acid-ezetimibe 180-10 mg 1 tab PO DAILY bisacodyl (Dulcolax (bisacodyl)) 10 mg (2 x 5 mg) PO ONCE 1 day bisacodyl (Dulcolax (bisacodyl)) 20 mg (4 x 5 mg) PO ONCE 1 day ezetimibe 10 mg PO DAILY 90 days lisinopril 5 mg PO DAILY needle (disp) 25 gauge (BD Regular Bevel [place]) As directed for testosterone injection polyethylene glycol 3350 (Miralax) 238 grams PO ONCE sertraline 25 mg PO DAILY 90 days sildenafil 100 mg PO DAILY PRN 30 days syringe (disposable) (BD Luer-Nery Syringe) As directed testosterone cypionate 50 mg (0.25 mL) subcut .twice weekly 28 days triamcinolone acetonide 0.025% 1 appl topical BID valacyclovir 500 mg PO BID HPI HPI Comments History of Present Illness Details Antwon is a very pleasant 48 year old male patient of . He presents to the office today for follow-up of his hypogonadism. In discussion with the patient today he reports to be doing and feeling well. Recent labs reviewed with the patient today as noted below: PSA 03/26--0.7 Total Testosterone 03/26-- 885, 07/26--683 Free testosterone 07/26--165.3 Hemoglobin 03/26--19.1, 07/26--17.7 Hematocrit 03/26--55.9, 07/26--51.6 He continues with current dosing of 50 units 2 times weekly. He reports taking medications as prescribed and has since stopped taking testosterone given by his friend as he has his own medication. Patient reports he will utilize testosterone therapy as prescribed. Patient otherwise denies any bothersome urinary issues or concerns at this time. He reports be happy with current voiding parameters. He otherwise denies any bothersome urological issues or concerns at this time. PREVIOUS OFFICE NOTE INFORMATION Hypogonadism:? Current dosing 50units 2 times weekly ? He presents today for?further evaluation and followup of his hypogonadism - ?- on injectable - Injection Days - Fri/Fri, Labs: Fri pm ?- discussed laboratory results.? Initial symptoms include? erectile dysfunction ?Yes ? decreased libido ?No ? change in mood/depression ?No ? in muscle size/strength ?No ? increased fatigue/malaise ?Yes ? increased abdominal fat ?No ? tender breasts/gynecomastia ?Yes ? hair loss ?No ? osteopenia ?No ? The onset of symptoms has been?over the past few years - 2012 started using testosterone and it. Was using up to 600 mg per week. Currently injecting 200 mg per week. In addition has used anvar and hCG in the past. Has had gynecomastia with discharge. Also used trenbolone. ?- 09/20 - pulsed restart ?- 01/18 clomid 50mg TIW ?- 03/20 clomid daily, 12/20 T replacement 100 units per week subcutaneous, add anastrazole 08/07 tab, 03/22 Lower T to 80U per week, ?01/21 reconfirm 80 units per week.? Erectile status?erections are adequate for penetration.? Associate conditions include? other ?external testosterone use ? Laboratory results?12/18 , testosterone 245 , low, LH , low 1.5 ?04/20 T 240, 04/21 T 915, 12/20 T 440, 01/20 High free T, low SHBG, high estradiol ?01/21 T 1200, hCT 52, 07/24 T 423, 01/23 T 622 H 55.6, 07/25 T 670 H 53.4 P 0.60 ? Current therapy includes?injectable exogenous testosterone ?- , aromatase inhibitor - anastrazole 1/4 tablet twice per week ? Prior therapy includes?- pulsed restart - unsuccessful ?- T replacement, aromatase inhibitor ? Diagnosis based on history and laboratory results?Hypogonadotrophic Hypogonadism.? 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 Current occupational exposures/hazards: No Cognitive needs: No Hearing needs: No Vision needs: No Review of Systems Const All systems reviewed & are unremarkable except as noted in HPI and below Physical Exam Const General: cooperative, healthy appearing, comfortable, no acute distress, well developed, alert and awake Orientation/consciousness: patient oriented x3 Limitations: no limitations HEENT Head: Yes normal to inspection, Yes normocephalic and Yes atraumatic Ears: hearing grossly normal bilaterally Eyes General: appearance normal, both eyes and all related structures Neck Neck: Yes normal visual inspection and Yes trachea midline Chest Chest palpation & inspection: normal inspection of the chest Resp Effort & Inspection: normal respiratory effort and able to speak in complete sentences Cardio Rate: regular rate GI Inspection: Yes normal to inspection General: Yes no CVA tenderness Back/Spine/Pelvis Back: no CVA tenderness Skin General skin exam: no rashes or lesions noted Neuro General: patient oriented x3 Extrem General: Yes normal to inspection Psych Appearance: grossly normal and well kempt Mental Status: mental status grossly normal Speech and movement: Clear speech present Affect: normal affect Attitude: cooperative Thought process: Normal thought process present Thought content: Normal thought content present Insight: Fair insight present (Psych) Judgement: Fair judgement present (Psych) Results AMB Urinalysis, Automated UA Leukoctes 0 Mimi/uL Last Edit by [employer] on 08/01/23 13:38 UA Nitrite Negative Last Edit by [employer] on 08/01/23 13:38 UA Urobilinogen 0.2 mg/dL Last Edit by [employer] on 08/01/23 13:38 UA Protein 15 mg/dL Last Edit by [employer]aptic [employer] on 08/01/23 13:38 UA pH 6.0 Last Edit by [employer] on 08/01/23 13:38 UA Blood 0 Maurilio/uL Last Edit by [employer] on 08/01/23 13:38 UA Specific [place] 1.030 Last Edit by [employer] on 08/01/23 13:38 UA Ketone Negative Last Edit by [employer]aptic [employer] on 08/01/23 13:38 UA Bilirubin 0 mg/dL Last Edit by [employer] on 08/01/23 13:38 UA Glucose 0 mg/dL Last Edit by [employer]aptic [employer] on 08/01/23 13:38 Results Reviewed Results Reviewed: Laboratory Last Values Urine pH (Auto) 6.0 08/01/23 13:37 Specific [place] (Auto) 1.030 08/01/23 13:37 Urine Protein (Auto) 15 mg/dL 08/01/23 13:37 Glucose (UA)(Auto) 0 mg/dL 08/01/23 13:37 Urine Ketones (Auto) Negative 08/01/23 13:37 Urine Blood (Auto) 0 Maurilio/uL 08/01/23 13:37 Urine Nitrite (Auto) Negative 08/01/23 13:37 Urine Bilirubin (Auto) 0 mg/dL 08/01/23 13:37 Urine Urobilinogen (Auto) 0.2 mg/dL 08/01/23 13:37 Leukocyte Esterase (Auto) 0 Mimi/uL 08/01/23 13:37 Assessment & Plan Assessment & Plan (1) Hypogonadism in male: Code(s): E29.1 - Testicular hypofunction Plan Recent testosterone, hemoglobin, and hematocrit results reviewed with the patient today; as noted above. Discussed at length importance of taking medications as prescribed. Refills provided and stressed the importance of taking medication as prescribed and not taking other individuals medications. Patient otherwise denies any bothersome urinary issues or concerns at this time. Will obtain estradiol, PSA, testosterone, free testosterone, and CBC prior to next office visit Follow-up in office in 6 months with labs to be completed prior; or sooner with any issues, concerns, and or questions. Orders: Orders AMB Urinalysis Automated 08/01/23 Z13.9 - Encounter for screening, unspecified Estradiol Ultra Sensitive 6 Months E29.1 - Testicular hypofunction Prostate Specific Antigen 6 Months E29.1 - Testicular hypofunction Testosterone, Free/Total 6 Months E29.1 - Testicular hypofunction Complete Blood Count no Diff 6 Months E29.1 - Testicular hypofunction Medications: Refilled testosterone cypionate inject 0.25 mls subcutaneously twice a week 50 mg (0.25 mL) subcut .twice weekly 2 mL 5RF 28 days E29.1 - Testicular hypofunction Patient Instructions: The patient had an opportunity to ask questions regarding the treatment plan. All questions were answered. Physical exam, labs, and imaging were discussed and reviewed in detail. As well as risks, benefits, and discussion of treatment choices. No major barriers to understanding were identified. The patient expressed understanding and agreement with the above treatment plan. The patient was made aware they should contact our office by phone for worsening of their current condition, the appearance of new symptoms, or with any questions or concerns. Compliance is encouraged with any medications and follow up testing that is ordered. It is a privilege to be allowed the opportunity to participate in? your urological care.? Again, if you have any questions or concerns If you have any questions or concerns please do not hesitate to contact me. The office is [phone]. This note is constructed using voice recognition software. While every effort has been made to ensure accuracy digital business analyst errors may have been included. Yours sincerely, MONICA Thurman Coding Level of Care Code Est Pt Level 3 (30537) Diagnoses Hypogonadism in male E29.1
== END 2023-08-01 13:56 | disposition home or self-care (01) ==
PROVIDERS: PCP Nurse Practitioner Family; Visit Provider Nurse Practitioner Family
DX: E29.1 Testicular hypofunction (principal)
CPT/HCPCS: 99213

== ENCOUNTER → 2023-08-01 13:13 | Outpatient (BNVA) | payer OTHER, SELFPAY | PROVIDERS: PCP Nurse Practitioner Family; Visit Provider Nurse Practitioner Family | DX: E29.1 Testicular hypofunction (principal) | CPT/HCPCS: 81003; 99212 ==

== ENCOUNTER 2023-08-19 07:42 | Outpatient (REF) | payer OTHER, SELFPAY ==
[2023-08-19 07:45] VITALS: BMI 30.8
[2023-08-19 07:46] VITALS: BP 137/87; PULSE 75; RESP 18; TEMP 36.8; O2SAT 96
--- NOTE | 2023-08-19 07:55 | W.PM.OPN ---
Operative Note Operative Note Date of Service: 08/19/23 Narrative: Preoperative diagnosis: Lipoma midback Postoperative diagnosis: Lipoma mid back Procedure: Excision lipoma midback Surgeon: Jon Cline MD Porcelain Enamel Laborer: None Anesthesia: Local Indications for procedure: 48-year-old male patient with a large lipoma of the mid back measuring approximately 8 cm in diameter Operative findings: Lipoma mid back 8 cm diameter Specimen: Lipoma midback Estimated blood loss: 2 mL Complications: None Procedure details: Patient was brought to the minor surgery suite and placed in a prone position. The site of surgery was confirmed by the patient in the mid back. After assuring informed consent the skin was prepped with Betadine and draped in a sterile fashion. Local anesthesia was then infiltrated in a transverse fashion in the central portion of the lipoma. Incision was then made with a 15 blade and carried out through subcutaneous tissue up to the lipoma. A combination of sharp and blunt dissection was then used to dissect the large lipoma from the surrounding subcutaneous tissue. The lipoma was then dissected off the muscle fascia in the deep portion. Hemostasis was assured using light pressure. The specimen was passed off the table and sent to pathology for further examination. Deep subcutaneous tissue was then closed using interrupted 3-0 Polysorb sutures. Dermis was reapproximated using interrupted 3-0 Polysorb sutures. Skin was closed using a running subcuticular 4-0 Polysorb suture. Steri-Strips, 2 x 2 gauze and Tegaderm were then applied. The patient tolerated the procedure well. He was discharged to home in stable condition.
== END 2023-08-19 07:43 | disposition home or self-care (01) ==
LOC: HO.MS 07:42
PROVIDERS: PCP Nurse Practitioner Family; Visit Provider Surgery
PROC: (CPT 11406; principal; 2023-08-19 08:00)
DX: D17.1 Benign lipomatous neoplasm of skin and subcutaneous tissue of trunk (principal)
CPT/HCPCS: 11406; 88304

== ENCOUNTER → 2023-08-19 07:42 | Outpatient (BNV) | payer OTHER, SELFPAY | PROVIDERS: PCP Nurse Practitioner Family; Visit Provider Surgery | DX: D17.1 Benign lipomatous neoplasm of skin and subcutaneous tissue of trunk (principal) | CPT/HCPCS: 21931 ==

== ENCOUNTER 2023-08-28 09:04 | Outpatient (AMB) | payer OTHER, SELFPAY ==
--- NOTE | 2023-08-28 09:14 | A.OFFVIS_ITS ---
Intake Vital Signs 3 08/28/23 09:22 Height 6 ft Weight 227 lb 6 oz BMI 30.8 BP 136/80 Blood Pressure Location Lt brachial Position Sitting Pulse 74 Intake Visit Reasons: S/P excision lipoma Lt upper back Intake Note: Patient is seen in office for post op assessment post excision of midback lipoma. Pt c/o: denies any concerns at the time of visit, area is healing as expected Op:08/19/23 X Ray Technician Required: No Accompanied by: Self / Same As Patient Allergies No Known Allergies Allergy (Verified 08/02/23 23:02) Medication List - Last Reconciled 08/28/23 by Jon Cline MD amlodipine 10 mg PO DAILY bempedoic acid-ezetimibe 180-10 mg 1 tab PO DAILY bisacodyl (Dulcolax (bisacodyl)) 10 mg (2 x 5 mg) PO ONCE 1 day bisacodyl (Dulcolax (bisacodyl)) 20 mg (4 x 5 mg) PO ONCE 1 day ezetimibe 10 mg PO DAILY 90 days lisinopril 5 mg PO DAILY needle (disp) 25 gauge (BD Regular Bevel [place]) As directed for testosterone injection polyethylene glycol 3350 (Miralax) 238 grams PO ONCE sertraline 25 mg PO DAILY 90 days sildenafil 100 mg PO DAILY PRN 30 days syringe (disposable) (BD Luer-Nery Syringe) As directed testosterone cypionate 50 mg (0.25 mL) subcut .twice weekly 28 days triamcinolone acetonide 0.025% 1 appl topical BID valacyclovir 500 mg PO BID HPI HPI Comments 2 History of Present Illness0 Details 48-year-old male patient status post exc ision of a large lipoma of the left upper back. He tolerated the procedure well and returns today for wound check. Pathology confirmed a lipoma. 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 No seroma or hematoma is appreciated. Back/spine/pelvis image: 2 1. Incision upper back Neuro General: patient oriented x3 Assessment & Plan Assessment & Plan (1) Lipoma: Code(s): D17.9 - Benign lipomatous neoplasm, unspecified Qualifiers: Lipoma location: trunk Qualified Code(s): D17.1 - Benign lipomatous neoplasm of skin and subcutaneous tissue of trunk Plan 48-year-old male patient status post excision of a lipoma of the upper back. He tolerated the procedure well and should follow up as needed. Coding Level of Care Code Global (19207) Diagnoses Lipoma of torso D17.1 Lipoma location: trunk
[2023-08-28 09:22] VITALS: BP 136/80; PULSE 74; BMI 30.8
== END 2023-08-28 09:46 | disposition home or self-care (01) ==
PROVIDERS: PCP Nurse Practitioner Family; Visit Provider Surgery
DX: D17.1 Benign lipomatous neoplasm of skin and subcutaneous tissue of trunk (principal)
CPT/HCPCS: 99024

== ENCOUNTER → 2023-08-28 09:04 | Outpatient (BNVA) | payer OTHER, SELFPAY | PROVIDERS: PCP Nurse Practitioner Family; Visit Provider Surgery ==

== ENCOUNTER 2023-10-21 07:38 | Outpatient (AMB) | payer OTHER, SELFPAY ==
[2023-10-21 07:45] VITALS: BP 118/82; PULSE 97; O2SAT 96; BMI 31.1
--- NOTE | 2023-10-21 07:45 | MHC.PC.OV ---
Vital Signs 10/21/23 07:45 Height 6 ft Weight 229 lb BMI 31.1 BP 118/82 Blood Pressure Location Rt brachial Position Sitting Pulse 97 Pulse Source Pulse Oximeter Pulse Oximetry (%) 96 Oxygen Delivery Method Room Air Intake Visit Reasons: PE Intake Note: Pt is here today for his PE Allergies No Known Allergies Allergy (Verified 10/21/23 08:15) Medication List - Last Reconciled 10/21/23 by MONICA Terry amlodipine 10 mg PO DAILY bisacodyl (Dulcolax (bisacodyl)) 10 mg (2 x 5 mg) PO ONCE 1 day bisacodyl (Dulcolax (bisacodyl)) 20 mg (4 x 5 mg) PO ONCE 1 day ezetimibe 10 mg PO DAILY 90 days lisinopril 5 mg PO DAILY needle (disp) 25 gauge (BD Regular [place]vel [place]) As directed for testosterone injection polyethylene glycol 3350 (Miralax) 238 grams PO ONCE sertraline 25 mg PO DAILY 90 days sildenafil 100 mg PO DAILY PRN 30 days syringe (disposable) (BD Luer-Nery Syringe) As directed testosterone cypionate 50 mg (0.25 mL) subcut .twice weekly 28 days triamcinolone acetonide 0.025% 1 appl topical BID valacyclovir 500 mg PO BID Tobacco use date assessed: 10/21/23 Dental Screening Dental Screen Date: 10/21/23 Did you have a dental visit in the last 12 months?: Yes Did you have a dental problem in the last 6 months where you did not have access to dental care?: No Was dental information given to patient?: Patient has dentist HPI PE HPI Details Pt is here for a PE. Will order labs. Colon screen is scheduled. PSA is up to date. Pt follows up with urology. 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 1. Little interest or pleasure in doing things: not at all 2. Feeling down, depressed, or hopeless: not at all 3. Trouble falling or staying asleep, or sleeping too much: not at all 4. Feeling tired or having little energy: not at all 5. Poor appetite or overeating: not at all 6. Feeling bad about yourself - or that you are a failure or have let yourself or your family down: not at all 7. Trouble concentrating on things, such as reading the newspaper or watching television: not at all 8. Moving or speaking so slowly that other people could have noticed. Or the opposite - being so fidgety or restless that you have been moving around a lot more than usual: not at all 9. Thoughts that you would be better off or of hurting yourself in some way: not at all Total score: 0 Source: Developed by Drs. Ilir Luo, Deepali Aguero, David Perez and colleagues, with an educational patt from [employer]. Thrive Questionnaire Date Thrive assessed: 10/21/23 I am a: Patient What is your living situation today?: I have a steady place to live Within the past 12 months, did the food you bought not last and you didn't have the money to get more?: Never true Within the past 12 months, did you worry whether your food would run out before you got money to buy more?: Never true Do you have trouble paying for medicines?: No Do you have trouble getting transportation to medical appointments?: No Do you have trouble paying your heating and electricity bill?: No Do you have trouble taking care of your child, family member or friend?: No Do you have trouble with day-to-day activities such as bathing, preparing meals, shopping, managing finances, etc.?: No Are you currently unemployed and looking for a job?: No Are you interested in more education?: No THRIVE Score: 0 AUDIT C Alcohol Use Questionnaire (AUDIT-C) 1. How often do you have a drink containing alcohol?: Never Total Score: 0 ANAY-7 AMB Questionnaire ANAY-7 Date ANAY - 7 assessed: 10/21/23 Feeling nervous, anxious, or on edge: 0 = Not at all Not being able to stop or control worryin = Not at all Worrying too much about different things: 1 = Several days Trouble relaxin = Not at all Being so restless that it is hard to sit still: 0 = Not at all Becoming easily annoyed or irritable: 0 = Not at all Feeling afraid as if something awful might happen: 0 = Not at all Total ANAY-7 score (0-4 normal; 5-9 mild; 10-14 moderate; 15-21 severe): 1 Source: Developed by Drs. Ilir Luo, Deepali Aguero, David Perez and colleagues, with an educational patt from [employer]. Review of Systems Const Denies chills and Denies fever(s) Eyes Denies blurry vision ENT Denies vertigo, Denies dizziness and Denies sore throat Card Denies chest pain at rest, Denies chest pain with activity, Denies diaphoresis, Denies dyspnea and Denies dyspnea on exertion Resp Denies cough, Denies dyspnea, Denies dyspnea on exertion and Denies wheezing GI Denies abdominal pain, Denies melena, Denies hematochezia, Denies constipation, Denies diarrhea and Denies loose stools Denies hematuria Musc Denies numbness and Denies tingling Skin/Breast Denies lesions Neuro Denies vertigo, Denies dizziness, Denies numbness and Denies tingling Psych Denies anxiety, Denies depression, Denies homicidal ideation, Denies suicidal ideation and Denies other (substance abuse) Aller/Immun Denies wheezing Physical exam (Primary Care) Vital Signs: Last Vital Signs Pulse 97 10/21/23 07:45 BP 118/82 10/21/23 07:45 Pulse Ox 96 10/21/23 07:45 Oxygen Delivery Method Room Air 10/21/23 07:45 BMI result Body Mass Index 31.1 Tobacco/Smoking Status: Tobacco use Status Tobacco use date assessed 10/21/23 10/21/23 07:54 Patient Tobacco Use Status Never used Tobacco 10/21/23 07:54 e-Cigarette/Vaping Use Never Used 10/21/23 07:54 PHQ-9: PHQ-9 Score PHQ-9: Total score 0 10/21/23 07:57 Thrive Assessment: Date of Thrive Assessment Date Thrive assessed 10/21/23 10/21/23 07:54 Const General: cooperative Nutritional Appearance: well nourished Orientation/consciousness: patient oriented x3 HENMT Head: Yes normal to inspection, Yes normocephalic and Yes atraumatic Ears: TM's normal bilaterally Eyes General: appearance normal, both eyes and all related structures Alignment and Position: alignment normal and position normal Neck Neck: Yes normal visual inspection and Yes no lymphadenopathy Thyroid: Thyroid normal Resp Effort & Inspection: normal respiratory effort Auscultation: clear to auscultation bilaterally Cardio Rate: regular rate Rhythm: regular rhythm Heart sounds: S1 normal heart sound present, S2 normal heart sound present and no murmurs GI Palpation (GI): Soft to palpation and nontender Auscultation: normal bowel sounds Male General Exam: Yes normal external exam Penis: normal penis Scrotum: scrotum normal, testes descended bilaterally and no inguinal hernias Testes: no testicular mass Skin Rashes: no rashes Neuro General: patient oriented x3, moves all extremities, no focal motor deficits and deep tendon reflexes 2+ bilaterally Romberg Test: Negative Psych Appearance: grossly normal Mental Status: mental status grossly normal Speech and movement: Normal speech and movement present Affect: normal affect Attitude: cooperative Thought process: Normal thought process present Thought content: Normal thought content present Insight: Good insight present (Psych) Judgement: Good judgement present (Psych) Assessment and Plan Assessment & Plan (1) Physical exam: Code(s): Z00.00 - Encounter for general adult medical examination without abnormal findings Plan: Labs ordered Plan The patient agreed to the use of a medical territory manager for this encounter. Scribed for MONICA Hernandez by poppy Cifuentes scribe, on 10/21/2023 at 07:55 EST. Orders: Orders Complete Blood Count Auto Diff Today Z00.00 - Encounter for general adult medical examination without abnormal findings UA CC w/rflx Micro + Cult Today Z00.00 - Encounter for general adult medical examination without abnormal findings Lipid Panel Today Z00.00 - Encounter for general adult medical examination without abnormal findings Comprehensive [place]. Panel Fast Today Z00.00 - Encounter for general adult medical examination without abnormal findings TSH reflex Free T4 Today Z00.00 - Encounter for general adult medical examination without abnormal findings Coding Level of Care Code Est Pt Prev Care 40-64y(53083) Diagnoses Physical exam Z00.00
== END 2023-10-21 08:30 | disposition home or self-care (01) ==
LOC: HO.HMGC 07:38
PROVIDERS: PCP Nurse Practitioner Family; Visit Provider Nurse Practitioner Family
DX: Z00.00 Encounter for general adult medical examination without abnormal findings (principal)
CPT/HCPCS: 99396

== ENCOUNTER 2024-01-14 08:11 | Outpatient (REF) | payer OTHER, SELFPAY ==
[2024-01-14 11:31] LABS: Appearance Urine Clear; Color Urine Yellow; Glucose Urine UA Negative (Negative); Leukocyte Esterase Urine Negative (Negative); Nitrite Urine Negative (Negative); PH 6.5 (5.0-9.0); Urine Blood Negative (Negative); Urine Ketones Negative (Negative); Urine Protein Negative (Neg-Trace)
[2024-01-14 11:32] LABS: MANUAL DIFF FLAG NO
[2024-01-14 11:42] LABS: Basophils Percent Auto 0.5 % (0-2); Eosinophils Absolute Auto 0.1 X10*3/uL (0.0-0.4); Eosinophils Percent Auto 1.4 % (0-4); Hematocrit 54.4 % (42.0-52.0); Imm Gran Abs Auto 0.03 X10*3/uL (0.00-0.03); Imm Gran Pct Auto 0.5 % (0.0-0.4); Lymphocytes Absolute Auto 1.3 X10*3/uL (1.2-4.9); Lymphocytes Percent Auto 22.7 % (20-40); Mean Corpuscular HGB Conc 34.9 g/dl (31.0-36.0); Mean Corpuscular Hemoglobin 32.1 pg (27.0-33.0); Mean Platelet Volume 11.2 fL (9.4-12.4); Monocytes Absolute Auto 0.6 X10*3/uL (0.1-1.2); Monocytes Percent Auto 9.8 % (2-11); Neutrophils Absolute Auto 3.6 x10*3/uL (2.0-8.3); Neutrophils Percent Auto 65.1 % (45-73); Platelet Count 145 X10*3/uL (160-400); Red Blood Count 5.91 X10*6/uL (4.60-5.80); Red Cell Distribution Width 12.6 % (11.0-16.0); White Blood Count 5.6 X10*3/uL (4.8-10.8)
[2024-01-14 12:08] LABS: Alanine Aminotransferase 38 U/L (0-40); Alkaline Phosphatase 73 U/L (39-117); Anion Gap 8 (12-20); Aspartate Amino Transferase 28 U/L (5-37); Bilirubin Total 0.7 mg/dL (0.0-1.0); Blood Urea Nitrogen 24 mg/dL (9-16); Calcium 9.2 mg/dL (8.4-10.2); Carbon Dioxide 27 mmol/L (22-29); Chloride 107 mmol/L (96-108); Cholesterol 173 mg/dL (<200); Estimated Glomerular Filt Rate 57; Glucose Fasting 98 mg/dL (60-99); HDL Cholesterol 41 mg/dL (>40); LDL Cholesterol Calculated 114 mg/dL (<100); Potassium 4.3 mmol/L (3.3-5.1); Sodium 138 mmol/L (135-145); Total Protein 7.1 g/dL (6.5-8.0); Triglycerides 92 mg/dL (<150)
[2024-01-14 12:12] LABS: TSH reflex Free T4 1.75 uIU/mL (0.32-4.0)
[2024-01-14 12:13] LABS: Prostate Specific Antigen 0.79 ng/mL (<0.05-4.0)
[2024-01-19 22:08] LABS: Testosterone, Free 158.9 pg/mL (35.0-155.0); Testosterone, Total 850 ng/dL (250-1100)
[2024-01-23 00:49] LABS: Estradiol Ultra Sensitive 40 pg/mL (< OR = 29)
== END 2024-01-14 08:12 | disposition home or self-care (01) ==
LOC: HO.WFDLDS 08:11
PROVIDERS: Nurse Practitioner Family; Visit Provider Nurse Practitioner Family
DX: Z00.00 Encounter for general adult medical examination without abnormal findings (principal); Z12.5 Encounter for screening for malignant neoplasm of prostate; E78.5 Hyperlipidemia, unspecified
CPT/HCPCS: 36415; 80053; 80061; 81003; 82670; 84153; 84402; 84403; 84443; 85025; 85027

== ENCOUNTER 2024-01-26 09:54 | Outpatient (AMB) | payer OTHER, SELFPAY ==
--- NOTE | 2024-01-26 10:01 | MHC.OFFVIS ---
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 Accompanied by: Self / Same As Patient Allergies No Known Allergies Allergy (Verified 01/26/24 21:19) Medication List - Last Reconciled 01/26/24 by PREETI Thurman- amlodipine 10 mg PO DAILY bisacodyl (Dulcolax (bisacodyl)) 10 mg (2 x 5 mg) PO ONCE 1 day bisacodyl (Dulcolax (bisacodyl)) 20 mg (4 x 5 mg) PO ONCE 1 day ezetimibe 10 mg PO DAILY 90 days lisinopril 5 mg PO DAILY needle (disp) 25 gauge (BD Regular Bevel [place]) As directed for testosterone injection polyethylene glycol 3350 (Miralax) 238 grams PO ONCE sildenafil 100 mg PO DAILY PRN 30 days syringe (disposable) (BD Luer-Nery Syringe) As directed testosterone cypionate 50 mg (0.25 mL) subcut .twice weekly 28 days HPI Comments Details: Antwon is a very pleasant 48 year old male patient of . He presents to the office today for follow-up of his hypogonadism. In discussion with the patient today he reports to be doing and feeling well. Recent labs reviewed with the patient today as noted below: PSA 03/26--0.7, 01/25 0.8 Total Testosterone 03/26 885, 07/26 683, 01/25 850 Free testosterone 07/26 165.3, 01/25 158.9 Hemoglobin 03/26 19.1, 07/26 17.7, 01/25 19 Hematocrit 03/26 55.9, 07/26 51.6, 01/25 54.4 Estradiol 01/25 40 He continues with current dosing of 50 units 2 times weekly. Discussed elevated H&H. Discussed therapeutic phlebotomy. Patient reports typically he injects on Sundays and has labs performed on Wednesdays. However due to needing to fast for other labs he was having done he injected on Friday as he typically does and had labs drawn on Friday. Patient otherwise denies any bothersome urinary issues or concerns at this time. He reports be happy with current voiding parameters. He otherwise denies any bothersome urological issues or concerns at this time. He discusses at length his family history of prostate cancer. PREVIOUS OFFICE NOTE INFORMATION Hypogonadism:? Current dosing 50units 2 times weekly ? He presents today for?further evaluation and followup of his hypogonadism - ?- on injectable - Injection Days - Fri/Fri, Labs: Fri pm ?- discussed laboratory results.? Initial symptoms include? erectile dysfunction ?Yes ? decreased libido ?No ? change in mood/depression ?No ? in muscle size/strength ?No ? increased fatigue/malaise ?Yes ? increased abdominal fat ?No ? tender breasts/gynecomastia ?Yes ? hair loss ?No ? osteopenia ?No ? The onset of symptoms has been?over the past few years - 2012 started using testosterone and it. Was using up to 600 mg per week. Currently injecting 200 mg per week. In addition has used anvar and hCG in the past. Has had gynecomastia with discharge. Also used trenbolone. ?- 09/20 - pulsed restart ?- 01/18 clomid 50mg TIW ?- 03/20 clomid daily, 12/20 T replacement 100 units per week subcutaneous, add anastrazole 08/07 tab, 03/22 Lower T to 80U per week, ?01/21 reconfirm 80 units per week.? Erectile status?erections are adequate for penetration.? Associate conditions include? other ?external testosterone use ? Laboratory results?5/17 , testosterone 245 , low, LH , low 1.5 ?04/20 T 240, 04/21 T 915, 12/20 T 440, 01/20 High free T, low SHBG, high estradiol ?01/21 T 1200, hCT 52, 07/24 T 423, 01/23 T 622 H 55.6, 07/25 T 670 H 53.4 P 0.60 ? Current therapy includes?injectable exogenous testosterone ?- , aromatase inhibitor - anastrazole 1/4 tablet twice per week ? Prior therapy includes?- pulsed restart - unsuccessful ?- T replacement, aromatase inhibitor ? Diagnosis based on history and laboratory results?Hypogonadotrophic Hypogonadism.? 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 Current occupational exposures/hazards: No Cognitive needs: No Hearing needs: No Vision needs: No Review of Systems Const All systems reviewed & are unremarkable except as noted in HPI and below Physical Exam Const General: cooperative, healthy appearing, comfortable, no acute distress, well developed, alert and awake Orientation/consciousness: patient oriented x3 Limitations: no limitations HEENT Head: Yes normal to inspection, Yes normocephalic and Yes atraumatic Ears: hearing grossly normal bilaterally Eyes General: appearance normal, both eyes and all related structures Neck Neck: Yes normal visual inspection and Yes trachea midline Chest Chest palpation & inspection: normal inspection of the chest Resp Effort & Inspection: normal respiratory effort and able to speak in complete sentences Cardio Rate: regular rate GI Inspection: Yes normal to inspection General: Yes no CVA tenderness Back/Spine/Pelvis Back: no CVA tenderness Skin General skin exam: no rashes or lesions noted Neuro General: patient oriented x3 Extrem General: Yes normal to inspection Psych Appearance: grossly normal and well kempt Mental Status: mental status grossly normal Speech and movement: Clear speech present Affect: normal affect Attitude: cooperative Thought process: Normal thought process present Thought content: Normal thought content present Insight: Fair insight present (Psych) Judgement: Fair judgement present (Psych) Results AMB Urinalysis, Automated UA Leukoctes 0 Mimi/uL Last Edit by [employer] on 01/26/24 10:19 UA Nitrite Negative Last Edit by [employer] on 01/26/24 10:19 UA Urobilinogen 0.2 mg/dL Last Edit by [employer] on 01/26/24 10:19 UA Protein 0 mg/dL Last Edit by [employer] on 01/26/24 10:19 UA pH 6.0 Last Edit by [employer] on 01/26/24 10:19 UA Blood 0 Maurilio/uL Last Edit by [employer] on 01/26/24 10:19 UA Specific [place] 1.020 Last Edit by [employer] on 01/26/24 10:19 UA Ketone Negative Last Edit by [employer] on 01/26/24 10:19 UA Bilirubin 0 mg/dL Last Edit by [employer] on 01/26/24 10:19 UA Glucose 0 mg/dL Last Edit by [employer] on 01/26/24 10:19 Results Reviewed Results Reviewed: Laboratory Last Values Urine pH (Auto) 6.0 01/26/24 10:05 Specific [place]ansom (Auto) 1.020 01/26/24 10:05 Urine Protein (Auto) 0 mg/dL 01/26/24 10:05 Glucose (UA)(Auto) 0 mg/dL 01/26/24 10:05 Urine Ketones (Auto) Negative 01/26/24 10:05 Urine Blood (Auto) 0 Maurilio/uL 01/26/24 10:05 Urine Nitrite (Auto) Negative 01/26/24 10:05 Urine Bilirubin (Auto) 0 mg/dL 01/26/24 10:05 Urine Urobilinogen (Auto) 0.2 mg/dL 01/26/24 10:05 Leukocyte Esterase (Auto) 0 Mimi/uL 01/26/24 10:05 Assessment & Plan Assessment & Plan (1) Hypogonadism in male: Code(s): E29.1 - Testicular hypofunction Category: Medical (2) Family hx of prostate cancer: Code(s): Z80.42 - Family history of malignant neoplasm of prostate Category: Medical Plan Recent lab results reviewed with the patient today; as noted above. Patient currently denies any bothersome urinary issues or concerns. Discussed at length importance of taking medications as prescribed. Discussed redraw of labs with appropriate timing of injection to timing of lab draw. Will obtain testosterone free and total in CBC for further assessment evaluation. Continue testosterone as discussed and prescribed. Discussed potential for therapeutic phlebotomy however will reassess once labs are drawn appropriately. Follow-up in 1 month with labs to be completed prior; or sooner with any issues, concerns, and or questions. Orders: Orders Estradiol Ultra Sensitive Today E29.1 - Testicular hypofunction AMB Urinalysis Automated Today Z13.9 - Encounter for screening, unspecified Complete Blood Count no Diff Today E29.1 - Testicular hypofunction Testosterone, Free/Total Today E11.69 - Type 2 diabetes mellitus with other specified complication, N52.1 - Erectile dysfunction due to diseases classified elsewhere Patient Instructions: The patient had an opportunity to ask questions regarding the treatment plan. All questions were answered. Physical exam, labs, and imaging were discussed and reviewed in detail. As well as risks, benefits, and discussion of treatment choices. No major barriers to understanding were identified. The patient expressed understanding and agreement with the above treatment plan. The patient was made aware they should contact our office by phone for worsening of their current condition, the appearance of new symptoms, or with any questions or concerns. Compliance is encouraged with any medications and follow up testing that is ordered. It is a privilege to be allowed the opportunity to participate in? your urological care.? Again, if you have any questions or concerns If you have any questions or concerns please do not hesitate to contact me. The office is [phone]. This note is constructed using voice recognition software. While every effort has been made to ensure accuracy real estate analyst errors may have been included. Yours sincerely, PREETI Thurman-BC Coding Level of Care Code Est Pt Level 4 (19137) Diagnoses Hypogonadism in male E29.1 Family hx of prostate cancer Z80.42 Time Spent (min) 25
== END 2024-01-26 10:39 | disposition home or self-care (01) ==
PROVIDERS: PCP Nurse Practitioner Family; Visit Provider Nurse Practitioner Family
DX: E29.1 Testicular hypofunction (principal); Z80.42 Family history of malignant neoplasm of prostate; Z13.9 Encounter for screening, unspecified
CPT/HCPCS: 99214

== ENCOUNTER → 2024-01-26 09:54 | Outpatient (BNVA) | payer OTHER, SELFPAY | PROVIDERS: PCP Nurse Practitioner Family; Visit Provider Nurse Practitioner Family | DX: E29.1 Testicular hypofunction (principal); Z80.42 Family history of malignant neoplasm of prostate | CPT/HCPCS: 81003; 99212 ==

== ENCOUNTER 2024-02-04 09:27 | Day surgery (SDC) | payer OTHER, SELFPAY ==
[2024-02-04 09:47] VITALS: BMI 29.9
[2024-02-04 10:00] VITALS: BP 145/81; PULSE 73; RESP 16; TEMP 37.4; O2SAT 97
--- NOTE | 2024-02-04 10:05 | P.CONAN_ITS ---
[facility] Active Problems Active Problems: All Active Problems Numbness and tingling in left hand (Acute) Lipoma (Acute) Elevated hemoglobin (Acute) Physical exam (Acute) Post-COVID chronic dyspnea (Acute) Liver cyst (Acute) Kidney cysts (Acute) Dyslipidemia (Acute) Elevated liver enzymes (Acute) Skin lesion (Acute) Immunizations incomplete (Acute) Family hx of prostate cancer (Acute) Encounter for screening for COVID-19 (Acute) Encounter for physical examination (Acute) Hypertension, goal to be determined (Acute) Medial meniscus tear (Acute) Hypogonadism in male (Acute) Past Medical History Medical History (Updated 02/04/24 @ 09:47 by Barb Hodgson RN) Hypertensive crisis HTN (hypertension) Hypogonadism in male Family History Family History Father HTN (hypertension) High cholesterol Paternal Uncle High cholesterol Paternal Grandfather High cholesterol Mother HTN (hypertension) Family history of problems with anesthesia: No Surgical History Surgical History S/P excision of lipoma (08/19/23) History of skin surgery History of Problems with Anesthesia: No Social History Social History Housing: House Alcohol intake: current Alcohol intake frequency: holidays/special occasions only Patient Tobacco Use Status: Never used Tobacco e-Cigarette/Vaping Use: Never Used Second Hand Smoke Exposure: No Use of substances other than those prescribed or required for medical reasons: No Are you DNR?: No Advance Directives: No Advance Directives Information Provided: Yes service: Yes Current occupational status: employed 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 Current occupational exposures/hazards: No Cognitive needs: No Hearing needs: No Vision needs: No Meds Allergies Allergy/AdvReac Type Severity Reaction Status Date / Time No Known Allergies Allergy Verified 01/26/24 21:19 Exam Height,Weight and Vital Signs: Height 6 ft Weight 100.017 kg Last Vital Signs Temp 99.4 F 02/04/24 10:00 Pulse 73 02/04/24 10:00 Resp 16 02/04/24 10:00 BP 145/81 H 02/04/24 10:00 Pulse Ox 97 02/04/24 10:00 O2 Del Method Room Air 02/04/24 10:00 Airway Mallampati Class: II TM Dist: >3cm Neck ROM: Full Heart: rrr Lungs: cta Assessment and Plan Assessment Anesthesia Assessment: Anesthesia Plan Discussed and Chart Reviewed Final Anesthetic Review Family History of Problems with Anesthesia: No History of Problems with Anesthesia: No NPO: Yes ASA Class: II Final Preanesthetic Review: No Changes in Pt Med Stat, Meds/Allgs Chart Reviewed and Consent Obtained/Reviewed Patient Risk: Low Procedure Risk: Low Anesthetic Plan Anesthetic Plan: MAC: Disposition: Standard PACU
[2024-02-04] MEDS: Lactated Ringers 1,000 ML 50 ML IVCONT (10:17)
--- NOTE | 2024-02-04 10:54 | MHC.SHP ---
Pre-Procedural Eval Section A - 24 Hr Update-Section A only Date of Service: 02/04/24 Section B - Complete if H&P > 30 days Chief Complaint: Encounter for screening for malignant neoplasm of Relevant Family History (Specify if Yes): No Relevant Social History: None Present Medications: see Short Stay Collaborative assessment Medical History: Significant History ( Hypertensive crisis HTN (hypertension) Hypogonadism in male) History of Previous Operations: Relevant previous surgery/procedure and date(s) (S/P excision of lipoma (08/19/23) History of skin surgery) Allergies: Allergies Allergy/AdvReac Type Severity Reaction Status Date / Time No Known Allergies Allergy Verified 01/26/24 21:19 Review of Systems Sugical H&P ROS: Negative: Constitution, Cardiovascular, Respiratory, Neurological, Psychiatric, Hem-Onc, Allergic/Immunologic, Gastrointestinal, Genitourinary, Musculoskeletal, Integumentary, Endocrine and Eyes/Ears/Nose/Throat Exam Surgical H&P Exam: Normal: HEENT, Normal: Heart, Normal: Lungs, Normal: Extremities, Normal: Abdomen, Normal: Skin and Normal: Neurological Plan Diagnosis/Plan: Unchanged I have reviewed the history and physical and performed a pertinent physical examination on my patient. No changes have occurred unless specified. Time Spent With Patient Time: Total time managing care of this patient today ____ minutes.
--- NOTE | 2024-02-04 11:47 | HO.OPN-COLON ---
Colonoscopy Operative Note Operative Note Date of Service: 02/04/24 Narrative: Operative Information Procedure Description: Colonoscopy Indication: screening Anesthesia: MAC COLONOSCOPY Instrument: Olympus variable stiffness pediatric scope 190L Colonoscopy Monitoring: Vital signs and clinical assessment, continuous EKG monitoring, Pulse oximetry, Carbon Dioxide monitoring and blood pressure monitoring were done throughout the procedure. Colon withdrawal time was 15 minutes. Procedure: The patient was placed in the left lateral decubitis position and pre-procedure medications were administered. After a digital rectal examination of the ano-rectum, the video colonoscope was inserted into the rectum and advanced through the colon to the cecum/TI. The colonoscope was slowly withdrawn in a retrograde panoramic fashion and the colon mucosa was carefully examined including a retroflexed view of the rectum. Findings and interventions are described below. Procedure Difficulty: easy Findings: Terminal Ileum-normal Cecum:normal Ascending Colon: normal Transverse Colon -normal Descending Colon:normal Sigmoid Colon: at 30 cm from anus a large pedunculated polyp about 20 mm was noted. this was injected with eleview and epinephrine and then removed with hot snare with 2 clips placed at the base of the defect Rectum: Retroflexion with small internal hemorrhoids seen, grade I Anorectum - normal Intervention: hot snare, eleview and epinephrine injection, clips Colon preparation: [place] Bowel Preparation Scale Right colon; 2 Transverse colon: 2 Left colon; 3 (0 = Unprepared colon segment with mucosa not seen due to solid stool that cannot be cleared. 1 = Portion of mucosa of the colon segment seen, but other areas of the colon segment not well seen due to staining, residual stool and/or opaque liquid. 2 = Minor amount of residual staining, small fragments of stool and/or opaque liquid, but mucosa of colon segment seen well. 3 = Entire mucosa of colon segment seen well with no residual staining, small fragments of stool or opaque liquid) Impression and Post Procedure Diagnosis: colon polyp internal hemorrhoids Plan: High fiber diet leaflet Avoid straining at stool, epsom salts and sitz bath, anusol supps or cream Repeat Colonoscopy in 6-12 months or earlier if clinically indicated Above findings were reviewed with the patient and relevant handouts were provided if indicated.
[2024-02-04 11:52] VITALS: BP 127/85; PULSE 62; RESP 18; TEMP 36.4; O2SAT 96
--- NOTE | 2024-02-04 11:56 | PC.NURSE ---
report given to aman wood patternmaker apprentice at this time
[2024-02-04 12:07] VITALS: BP 118/80; PULSE 66; RESP 16; O2SAT 95
[2024-02-04 12:22] VITALS: BP 141/88; PULSE 70; RESP 18; TEMP 36.4; O2SAT 97
== END 2024-02-04 13:04 | disposition home or self-care (01) ==
PROVIDERS: PCP Nurse Practitioner Family; Visit Provider Internal Medicine Gastroenterology
PROC: 0DJD8ZZ Inspection of Lower Intestinal Tract, Via Natural or Artificial Opening Endoscopic (ICD-10-PCS; CPT 45378; principal; 2024-02-04 11:00)
DX: Z12.11 Encounter for screening for malignant neoplasm of colon (principal); D12.5 Benign neoplasm of sigmoid colon; K64.0 First degree hemorrhoids; K76.89 Other specified diseases of liver; D58.2 Other hemoglobinopathies; I10 Essential (primary) hypertension; E29.1 Testicular hypofunction; K59.00 Constipation, unspecified; Z98.890 Other specified postprocedural states; R74.8 Abnormal levels of other serum enzymes
CPT/HCPCS: 45385; 45381; 88305; J0171; J2704

== ENCOUNTER → 2024-02-04 09:27 | Outpatient (BNV) | payer OTHER, SELFPAY | PROVIDERS: PCP Nurse Practitioner Family; Visit Provider Internal Medicine Gastroenterology | DX: Z12.11 Encounter for screening for malignant neoplasm of colon (principal); D12.5 Benign neoplasm of sigmoid colon; K64.0 First degree hemorrhoids | CPT/HCPCS: 45381; 45385 ==

== ENCOUNTER 2024-03-05 08:25 | Outpatient (REF) | payer OTHER, SELFPAY ==
[2024-03-05 11:16] LABS: Hematocrit 52.8 % (42.0-52.0); Hemoglobin 17.8 g/dl (14.0-18.0); Mean Corpuscular HGB Conc 33.7 g/dl (31.0-36.0); Mean Corpuscular Hemoglobin 32.1 pg (27.0-33.0); Mean Corpuscular Volume 95.3 fL (80.0-98.0); Mean Platelet Volume 10.9 fL (9.4-12.4); Platelet Count 165 X10*3/uL (160-400); Red Blood Count 5.54 X10*6/uL (4.60-5.80); Red Cell Distribution Width 13.2 % (11.0-16.0); White Blood Count 5.4 X10*3/uL (4.8-10.8)
[2024-03-12 22:53] LABS: Estradiol Ultra Sensitive 16 pg/mL (< OR = 29)
[2024-03-14 13:43] LABS: Testosterone, Total 261 ng/dL (250-1100)
== END 2024-03-05 08:26 | disposition home or self-care (01) ==
LOC: HO.WFDLDS 08:25
PROVIDERS: Visit Provider Nurse Practitioner Family
DX: E11.69 Type 2 diabetes mellitus with other specified complication (principal); N52.1 Erectile dysfunction due to diseases classified elsewhere; E29.1 Testicular hypofunction
CPT/HCPCS: 36415; 82670; 84402; 84403; 85027

== ENCOUNTER 2024-03-17 08:47 | Outpatient (REF) | payer OTHER, SELFPAY ==
[2024-03-17 13:35] LABS: Hemoglobin 17.8 g/dl (14.0-18.0); Mean Corpuscular HGB Conc 33.6 g/dl (31.0-36.0); Mean Corpuscular Volume 95.2 fL (80.0-98.0); Mean Platelet Volume 10.9 fL (9.4-12.4); Platelet Count 198 X10*3/uL (160-400); Red Blood Count 5.57 X10*6/uL (4.60-5.80); Red Cell Distribution Width 13.1 % (11.0-16.0)
[2024-03-23 16:18] LABS: Testosterone, Free 117.2 pg/mL (35.0-155.0); Testosterone, Total 352 ng/dL (250-1100)
== END 2024-03-17 08:48 | disposition home or self-care (01) ==
LOC: HO.WFDLDS 08:47
PROVIDERS: Visit Provider Nurse Practitioner Family
DX: E29.1 Testicular hypofunction (principal)
CPT/HCPCS: 36415; 84402; 84403; 85027

== ENCOUNTER 2024-03-26 12:07 | Outpatient (AMB) | payer OTHER, SELFPAY ==
--- NOTE | 2024-03-26 12:07 | A.OFFVIS_ITS ---
Intake Visit Reasons: Follow up/Labs Intake Note: Patient presents for tele visit follow up on PSA, Testosterone, and Hormone Labs Testosterone: 352, Free Testosterone: 117.2 Urology Medication: Sildenafil, Testosterone Blood Thinner: None Orthopedics Pediatric Physician Required: No Accompanied by: Self / Same As Patient Allergies No Known Allergies Allergy (Verified 03/26/24 12:32) Medication List - Last Reconciled 03/26/24 by PREETI Thurman- amlodipine 10 mg PO DAILY bisacodyl (Dulcolax (bisacodyl)) 10 mg (2 x 5 mg) PO ONCE 1 day bisacodyl (Dulcolax (bisacodyl)) 20 mg (4 x 5 mg) PO ONCE 1 day ezetimibe 10 mg PO DAILY 90 days lisinopril 5 mg PO DAILY needle (disp) 25 gauge (BD Regular [place]vel [place]) As directed for testosterone injection polyethylene glycol 3350 (Miralax) 238 grams PO ONCE sertraline 25 mg PO DAILY sildenafil 100 mg PO DAILY PRN 30 days syringe (disposable) (BD Luer-Nery Syringe) As directed testosterone cypionate 50 mg (0.25 mL) subcut Q4W 28 days HPI Comments Details: Antwon is a very pleasant 48 year old male patient of . He is being follow-up on today via video telehealth for his hypogonadism. In discussion with the patient today he reports since his last office visit here he has decreased his dosage and testosterone as recommended. Recent labs reviewed with the patient today. As noted and trended below. In discussion with the patient today he reports to be doing and feeling well. He does report feeling a decrease in strength and nipple soreness. Labs are as follows: PSA 03/26 0.7, 01/25 0.8 Total Testosterone 03/26 885, 07/26 683, 01/25 850, 03/27 352 Free testosterone 07/26 165.3, 01/25 158.9, 03/27 117.2 Hemoglobin 03/26 19.1, 07/26 17.7, 01/25 19, 03/27 17.8 Hematocrit 03/26 55.9, 07/26 51.6, 01/25 54.4, 03/27 53.0 Estradiol 01/25 40, 03/27 16 During last office visit discussion regarding elevated hemoglobin levels and therapeutic phlebotomy was discussed however also discussed decreasing dose of testosterone. He now has decreased dose of testosterone however testosterone results are significantly decreased as noted above. Discussed importance of awaiting 2 days between injection and lab retrieval. Patient otherwise denies any bothersome urinary issues or concerns at this time. He reports be happy with current voiding parameters. He otherwise denies any bothersome urological issues or concerns at this time. He discusses at length his family history of prostate cancer (father) who is currently undergoing treatment for reoccurrence of prostate cancer. He otherwise offers no other issues or concerns at this time. PREVIOUS OFFICE NOTE INFORMATION Hypogonadism:? Current dosing 50units 2 times weekly ? He presents today for?further evaluation and followup of his hypogonadism - ?- on injectable - Injection Days - Fri/Fri, Labs: Fri pm ?- discussed laboratory results.? Initial symptoms include? erectile dysfunction ?Yes ? decreased libido ?No ? change in mood/depression ?No ? in muscle size/strength ?No ? increased fatigue/malaise ?Yes ? increased abdominal fat ?No ? tender breasts/gynecomastia ?Yes ? hair loss ?No ? osteopenia ?No ? The onset of symptoms has been?over the past few years - 2012 started using testosterone and it. Was using up to 600 mg per week. Currently injecting 200 mg per week. In addition has used anvar and hCG in the past. Has had gynecomastia with discharge. Also used trenbolone. ?- 09/20 - pulsed restart ?- 01/18 clomid 50mg TIW ?- 03/20 clomid daily, 12/20 T replacement 100 units per week subcutaneous, add anastrazole 1/4 tab, 03/22 Lower T to 80U per week, ?01/21 reconfirm 80 units per week.? Erectile status?erections are adequate for penetration.? Associate conditions include? other ?external testosterone use ? Laboratory results?12/18 , testosterone 245 , low, LH , low 1.5 ?04/20 T 240, 04/21 T 915, 12/20 T 440, 01/20 High free T, low SHBG, high estradiol ?01/21 T 1200, hCT 52, 07/24 T 423, 01/23 T 622 H 55.6, 07/25 T 670 H 53.4 P 0.60 ? Current therapy includes?injectable exogenous testosterone ?- , aromatase inhibitor - anastrazole 1/4 tablet twice per week ? Prior therapy includes?- pulsed restart - unsuccessful ?- T replacement, aromatase inhibitor ? Diagnosis based on history and laboratory results?Hypogonadotrophic Hypogonadism.? [facility] [place] Medical History Hypertensive crisis HTN (hypertension) Hypogonadism in male Surgical History S/P excision of lipoma (08/19/23) History of skin surgery Family History Father HTN (hypertension) High cholesterol Paternal Uncle High cholesterol Paternal Grandfather High cholesterol Mother HTN (hypertension) Social History Housing: House Alcohol intake: current Alcohol intake frequency: holidays/special occasions only Patient Tobacco Use Status: Never used Tobacco e-Cigarette/Vaping Use: Never Used Second Hand Smoke Exposure: No service: Yes Current occupational status: employed 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 Current occupational exposures/hazards: No Cognitive needs: No Hearing needs: No Vision needs: No Review of Systems Const All systems reviewed & are unremarkable except as noted in HPI and below Physical Exam Const General: cooperative, healthy appearing, comfortable, no acute distress, well developed, alert and awake Orientation/consciousness: patient oriented x3 Resp Effort & Inspection: normal respiratory effort and able to speak in complete sentences Neuro General: patient oriented x3 Psych Appearance: grossly normal and well kempt Speech and movement: Clear speech present Affect: normal affect Attitude: cooperative Thought content: Normal thought content present Insight: Fair insight present (Psych) Judgement: Fair judgement present (Psych) Telehealth Telehealth Telehealth Platform: [employer] Location of provider rendering services: practice address Location of patient: address on file Patient Identification confirmed using: Name, : Yes Telehealth method: video Patient verbally consented to treatment: Yes Patient verbally consented to billing insurance company: Yes Patient informed of any privacy concerns related to visit: Yes Minutes spent on Phone/Video with Pt.: 15 Assessment & Plan Assessment & Plan (1) Hypogonadism in male: Code(s): E29.1 - Testicular hypofunction Category: Medical (2) Family hx of prostate cancer: Code(s): Z80.42 - Family history of malignant neoplasm of prostate Category: Medical Plan Recent lab results reviewed with the patient today; as noted above. Patient currently denies any bothersome urinary issues or concerns. Discussed at length importance of taking medications as prescribed. Discussed redraw of labs with appropriate timing of injection to timing of lab draw. Will obtain testosterone free and total, FSH, estradiol, SHBG, prolactin, LH, PSA and CBC for further assessment evaluation. Continue testosterone as discussed and prescribed. Follow-up in 1 month with labs to be completed prior; or sooner with any issues, concerns, and or questions. Orders: Orders Follicle Stimulating Hormone Today E29.1 - Testicular hypofunction Complete Blood Count no Diff Today E29.1 - Testicular hypofunction Estradiol Ultra Sensitive Today E29.1 - Testicular hypofunction Sex Hormone Binding Globulin Today E29.1 - Testicular hypofunction Testosterone, Free/Total Today E29.1 - Testicular hypofunction Prolactin Today E29.1 - Testicular hypofunction Lutenizing Hormone Today E29.1 - Testicular hypofunction Prostate Specific Antigen Today E29.1 - Testicular hypofunction Medications: Refilled needle (disp) 25 gauge (BD Regular [place]vel [place]) As directed for testosterone injection 100 ea 0RF E29.1 - Testicular hypofunction Patient Instructions: The patient had an opportunity to ask questions regarding the treatment plan. All questions were answered. Physical exam, labs, and imaging were discussed and reviewed in detail. As well as risks, benefits, and discussion of treatment choices. No major barriers to understanding were identified. The patient expressed understanding and agreement with the above treatment plan. The patient was made aware they should contact our office by phone for worsening of their current condition, the appearance of new symptoms, or with any questions or concerns. Compliance is encouraged with any medications and follow up testing that is ordered. It is a privilege to be allowed the opportunity to participate in? your urological care.? Again, if you have any questions or concerns If you have any questions or concerns please do not hesitate to contact me. The office is [phone]. This note is constructed using voice recognition software. While every effort has been made to ensure accuracy stamping die maker bench errors may have been included. Yours sincerely, MONICA Thurman Coding Level of Care Code Tele Est Pt Level 3 (52664) Diagnoses Hypogonadism in male E29.1 Family hx of prostate cancer Z80.42
== END 2024-03-26 12:33 | disposition home or self-care (01) ==
LOC: HO.HUSH 12:07
PROVIDERS: PCP Nurse Practitioner Family; Visit Provider Nurse Practitioner Family
DX: E29.1 Testicular hypofunction (principal); Z80.42 Family history of malignant neoplasm of prostate
CPT/HCPCS: 99213

== ENCOUNTER → 2024-03-26 12:07 | Outpatient (BNVA) | payer OTHER, SELFPAY | PROVIDERS: PCP Nurse Practitioner Family; Visit Provider Nurse Practitioner Family ==

== ENCOUNTER 2024-06-03 08:07 | Outpatient (REF) | payer OTHER, SELFPAY ==
[2024-06-03 11:18] LABS: Hematocrit 54.8 % (42.0-52.0); Mean Corpuscular HGB Conc 34.7 g/dl (31.0-36.0); Mean Corpuscular Hemoglobin 31.8 pg (27.0-33.0); Mean Corpuscular Volume 91.8 fL (80.0-98.0); Mean Platelet Volume 11.7 fL (9.4-12.4); Platelet Count 149 X10*3/uL (160-400); Red Blood Count 5.97 X10*6/uL (4.60-5.80); Red Cell Distribution Width 12.4 % (11.0-16.0); White Blood Count 6.3 X10*3/uL (4.8-10.8)
[2024-06-03 11:50] LABS: Prostate Specific Antigen 0.72 ng/mL (<0.05-4.0)
[2024-06-04 09:03] LABS: Follicle Stimulating Hormone <0.7 mIU/mL (1.4-12.8); Lutenizing Hormone <0.2 mIU/mL (1.5-9.3); Sex Hormone Binding Globulin 21 nmol/L (10-50)
[2024-06-08 23:19] LABS: Estradiol Ultra Sensitive 31 pg/mL (< OR = 29)
[2024-06-09 18:59] LABS: Testosterone, Free 122.9 pg/mL (35.0-155.0); Testosterone, Total 585 ng/dL (250-1100)
== END 2024-06-03 08:08 | disposition home or self-care (01) ==
LOC: HO.WFDLDS 08:07
PROVIDERS: Visit Provider Nurse Practitioner Family
DX: E29.1 Testicular hypofunction (principal)
CPT/HCPCS: 36415; 82670; 83001; 83002; 84146; 84153; 84270; 84402; 84403; 85027

== ENCOUNTER 2024-06-15 11:45 | Outpatient (AMB) | payer OTHER, SELFPAY ==
--- NOTE | 2024-06-15 11:49 | A.OFFVIS_ITS ---
Intake Visit Reasons: 1M f/u w/ Labs(pending) Intake Note: Patient presents today for follow up: on PSA, Testosterone, and Hormone Labs Testosterone: 585; Free Testosterone: 122.9; PSA: 0.72 Urology Medication: Sildenafil, Testosterone Blood Thinner: None Inhalation Therapist Required: No Accompanied by: Self / Same As Patient Allergies No Known Allergies Allergy (Verified 06/15/24 12:56) Medication List - Last Reconciled 06/15/24 by PREETI Thurman- amlodipine 10 mg PO DAILY bisacodyl (Dulcolax (bisacodyl)) 10 mg (2 x 5 mg) PO ONCE 1 day bisacodyl (Dulcolax (bisacodyl)) 20 mg (4 x 5 mg) PO ONCE 1 day ezetimibe 10 mg PO DAILY 90 days lisinopril 5 mg PO DAILY needle (disp) 25 gauge (BD Regular [place]) As directed for testosterone injection polyethylene glycol 3350 (Miralax) 238 grams PO ONCE sertraline 25 mg PO DAILY sildenafil 100 mg PO DAILY PRN 30 days syringe (disposable) (BD Luer-Nery Syringe) As directed testosterone cypionate 50 mg (0.25 mL) subcut Q4W 28 days HPI Comments Details: Antwon is a very pleasant 49 year old male patient of . He presents to the office today for follow-up of his hypogonadism. In discussion with the patient today he reports since his last office visit here he has decre ased his dosage and testosterone as recommended. Recent labs reviewed with the patient today. As noted and trended below. In discussion with the patient today he reports to be doing and feeling well. He reports feeling he feels well on current testosterone dose. PSA 03/26 0.7, 01/25 0.8, 05/27 0.7 Total Testosterone 03/26 885, 07/26 683, 01/25 850, 03/27 352, 05/27 585 Free testosterone 07/26 165.3, 01/25 158.9, 03/27 117.2, 05/27 122.9 Hemoglobin 03/26 19.1, 07/26 17.7, 01/25 19, 03/27 17.8, 05/27 19.0 Hematocrit 03/26 55.9, 07/26 51.6, 01/25 54.4, 03/27 53.0, 05/27 54.8 Estradiol 01/25 40, 03/27 16, 05/27 31 FSH 05/27 <0.7 LH 05/27 <0.2 Prolactin 05/27 6.0 SHBG 05/27 21 We discussed therapeutic phlebotomy given increase in H&H. We discussed potential causes and affects of increase in H&H. We also discussed other treatment options for hypogonadism given labile hypogonadal labs. We discussed xysosted versus test the pelvic verses continuation of testosterone replacement as currently performing. Patient otherwise denies any bothersome urinary issues or concerns at this time. He reports be happy with current voiding parameters. He denies any bothersome urological issues or concerns at this time. He discusses at length his family history of prostate cancer (father) who is currently undergoing treatment for reoccurrence of prostate cancer. He otherwise offers no other issues or concerns at this time. PREVIOUS OFFICE NOTE INFORMATION Hypogonadism:? Current dosing 50units 2 times weekly ? He presents today for?further evaluation and followup of his hypogonadism - ?- on injectable - Injection Days - Fri/Fri, Labs: Fri pm ?- discussed laboratory results.? Initial symptoms include? erectile dysfunction ?Yes ? decreased libido ?No ? change in mood/depression ?No ? in muscle size/strength ?No ? increased fatigue/malaise ?Yes ? increased abdominal fat ?No ? tender breasts/gynecomastia ?Yes ? hair loss ?No ? osteopenia ?No ? The onset of symptoms has been?over the past few years - 2012 started using testosterone and it. Was using up to 600 mg per week. Currently injecting 200 mg per week. In addition has used anvar and hCG in the past. Has had gynecomastia with discharge. Also used trenbolone. ?- 09/20 - pulsed restart ?- 01/18 clomid 50mg TIW ?- 03/20 clomid daily, 12/20 T replacement 100 units per week subcutaneous, add anastrazole 1 tab, 03/22 Lower T to 80U per week, ?01/21 reconfirm 80 units per week.? Erectile status?erections are adequate for penetration.? Associate conditions include? other ?external testosterone use ? Laboratory results?12/18 , testosterone 245 , low, LH , low 1.5 ?04/20 T 240, 04/21 T 915, 12/20 T 440, 01/20 High free T, low SHBG, high estradiol ?01/21 T 1200, hCT 52, 07/24 T 423, 01/23 T 622 H 55.6, 07/25 T 670 H 53.4 P 0.60 ? Current therapy includes?injectable exogenous testosterone ?- , aromatase inhibitor - anastrazole 1/4 tablet twice per week ? Prior therapy includes?- pulsed restart - unsuccessful ?- T replacement, aromatase inhibitor ? Diagnosis based on history and laboratory results?Hypogonadotrophic Hypogonadism.? 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 Current occupational exposures/hazards: No Cognitive needs: No Hearing needs: No Vision needs: No Review of Systems Const All systems reviewed & are unremarkable except as noted in HPI and below Physical Exam Const General: cooperative, healthy appearing, comfortable, no acute distress, well developed, alert and awake Orientation/consciousness: patient oriented x3 Limitations: no limitations HEENT Head: Yes normal to inspection, Yes normocephalic and Yes atraumatic Ears: hearing grossly normal bilaterally Eyes General: appearance normal, both eyes and all related structures Neck Neck: Yes normal visual inspection and Yes trachea midline Chest Chest palpation & inspection: normal inspection of the chest Resp Effort & Inspection: normal respiratory effort and able to speak in complete sentences Cardio Rate: regular rate GI Inspection: Yes normal to inspection General: Yes no CVA tenderness Back/Spine/Pelvis Back: no CVA tenderness Skin General skin exam: no rashes or lesions noted Neuro General: patient oriented x3 Extrem General: Yes normal to inspection Psych Appearance: grossly normal and well kempt Mental Status: mental status grossly normal Speech and movement: Clear speech present Affect: normal affect Attitude: cooperative Thought process: Normal thought process present Thought content: Normal thought content present Insight: Fair insight present (Psych) Judgement: Fair judgement present (Psych) Results AMB Urinalysis, Automated UA Leukoctes 0 Mimi/uL Last Edit by Michelle Mullen on 06/15/24 12:43 UA Nitrite Negative Last Edit by Michelle Mullen on 06/15/24 12:43 UA Urobilinogen 0.2 mg/dL Last Edit by Michelle Mullen on 06/15/24 12:43 UA Protein 15 mg/dL Last Edit by Michelle Mullen on 06/15/24 12:43 UA pH 7.5 Last Edit by Michelle Mullen on 06/15/24 12:43 UA Blood 0 Maurilio/uL Last Edit by Michelle Mullen on 06/15/24 12:43 UA Specific [place] 1.010 Last Edit by Michelle Mullen on 06/15/24 12:43 UA Ketone Negative Last Edit by Michelle Mullen on 06/15/24 12:43 UA Bilirubin 0 mg/dL Last Edit by Michelle Mullen on 06/15/24 12:43 UA Glucose 0 mg/dL Last Edit by Michelle Mullen on 06/15/24 12:43 Assessment & Plan Assessment & Plan (1) Hypogonadism in male: Code(s): E29.1 - Testicular hypofunction Category: Medical (2) Polycythemia: Code(s): D75.1 - Secondary polycythemia Category: Medical Plan In office urinalysis results reviewed with the patient today; as noted above. We discussed labs (PSA, estradiol, FSH, LH, prolactin, total testosterone, free testosterone, SHBG, and hemoglobin and hematocrit Will schedule for therapeutic phlebotomy given increase in H&H . We discussed other treatment options for hypogonadism given labile labs with current therapy. We discussed affects of increase in hemoglobin and hematocrit levels on the body as well as overall health and well-being. He otherwise denies any bothersome urinary issues. He reports be happy with current voiding parameters. Follow-up in 3 months with CBC, PSA, testosterone, and free testosterone; or sooner with any issues, concerns, and or questions. Orders: Orders AMB Urinalysis Automated Today Z13.9 - Encounter for screening, unspecified Prostate Specific Antigen 3 Months E29.1 - Testicular hypofunction Complete Blood Count no Diff 3 Months E29.1 - Testicular hypofunction Testosterone, Free/Total 3 Months E29.1 - Testicular hypofunction Patient Instructions: The patient had an opportunity to ask questions regarding the treatment plan. All questions were answered. Physical exam, labs, and imaging were discussed and reviewed in detail. As well as risks, benefits, and discussion of treatment choices. No major barriers to understanding were identified. The patient expressed understanding and agreement with the above treatment plan. The patient was made aware they should contact our office by phone for worsening of their current condition, the appearance of new symptoms, or with any questions or concerns. Compliance is encouraged with any medications and follow up testing that is ordered. It is a privilege to be allowed the opportunity to participate in? your urological care.? Again, if you have any questions or concerns If you have any questions or concerns please do not hesitate to contact me. The office is [phone]. This note is constructed using voice recognition software. While every effort has been made to ensure accuracy paper slitter errors may have been included. Yours sincerely, MONICA Thurman Coding Level of Care Code Est Pt Level 4 (77878) Diagnoses Hypogonadism in male E29.1 Polycythemia D75.1 Time Spent (min) 35
== END 2024-06-15 12:25 | disposition home or self-care (01) ==
PROVIDERS: PCP Nurse Practitioner Family; Visit Provider Nurse Practitioner Family
DX: E29.1 Testicular hypofunction (principal); D75.1 Secondary polycythemia; Z13.9 Encounter for screening, unspecified
CPT/HCPCS: 99214

== ENCOUNTER → 2024-06-15 11:45 | Outpatient (BNVA) | payer OTHER, SELFPAY | PROVIDERS: PCP Nurse Practitioner Family; Visit Provider Nurse Practitioner Family | DX: E29.1 Testicular hypofunction (principal); D75.1 Secondary polycythemia | CPT/HCPCS: 81003; 99212 ==

== ENCOUNTER 2024-06-21 15:25 | Outpatient (REF) | payer OTHER, SELFPAY | END 2024-06-21 15:26 | disposition home or self-care (01) | LOC: HO.BBR 15:25 | PROVIDERS: Visit Provider Nurse Practitioner Family | DX: D75.1 Secondary polycythemia (principal) | CPT/HCPCS: 85018; 99195 ==

== ENCOUNTER 2024-07-19 15:28 | Outpatient (REF) | payer OTHER, SELFPAY | END 2024-07-19 15:29 | disposition home or self-care (01) | LOC: HO.BBR 15:28 | PROVIDERS: PCP Nurse Practitioner Family; Visit Provider Nurse Practitioner Family | DX: D75.1 Secondary polycythemia (principal) | CPT/HCPCS: 85014; 85018; 99195 ==

== ENCOUNTER 2024-08-05 08:05 | Outpatient (REF) | payer OTHER, SELFPAY ==
[2024-08-05 11:07] LABS: Hematocrit 54.5 % (42.0-52.0); Hemoglobin 18.2 g/dl (14.0-18.0); Mean Corpuscular HGB Conc 33.4 g/dl (31.0-36.0); Mean Corpuscular Hemoglobin 31.8 pg (27.0-33.0); Mean Corpuscular Volume 95.1 fL (80.0-98.0); Platelet Count 174 X10*3/uL (160-400); Red Blood Count 5.73 X10*6/uL (4.60-5.80); Red Cell Distribution Width 13.1 % (11.0-16.0); White Blood Count 6.2 X10*3/uL (4.8-10.8)
[2024-08-05 11:29] LABS: Prostate Specific Antigen 0.87 ng/mL (<0.05-4.0)
[2024-08-12 16:48] LABS: Testosterone, Free 86.8 pg/mL (35.0-155.0); Testosterone, Total 319 ng/dL (250-1100)
== END 2024-08-05 08:06 | disposition home or self-care (01) ==
LOC: HO.WFDLDS 08:05
PROVIDERS: Visit Provider Nurse Practitioner Family
DX: E29.1 Testicular hypofunction (principal)
CPT/HCPCS: 36415; 84153; 84402; 84403; 85027

== ENCOUNTER 2024-08-16 15:22 | Outpatient (REF) | payer OTHER, SELFPAY | END 2024-08-16 15:23 | disposition home or self-care (01) | LOC: HO.BBR 15:22 | PROVIDERS: PCP Nurse Practitioner Family; Visit Provider Nurse Practitioner Family | DX: D75.1 Secondary polycythemia (principal) | CPT/HCPCS: 85014; 85018; 99195 ==

== ENCOUNTER 2024-08-23 15:13 | Outpatient (AMB) | payer OTHER, SELFPAY ==
--- NOTE | 2024-08-23 15:14 | A.OFFVIS_ITS ---
Intake Visit Reasons: Testo/PSA(set) Intake Note: Patient is present for TESTO/PSA Urology Medication:TESTOSTERONE,SILDENAFIL Antibiotic Allergy:NONE Blood Thinner:NONE Financial Supervisor Required: No Allergies No Known Allergies Allergy (Verified 08/23/24 15:30) Medication List - Last Reconciled 08/23/24 by PREETI Thurman- amlodipine 10 mg PO DAILY bisacodyl (Dulcolax (bisacodyl)) 10 mg (2 x 5 mg) PO ONCE 1 day bisacodyl (Dulcolax (bisacodyl)) 20 mg (4 x 5 mg) PO ONCE 1 day ezetimibe 10 mg PO DAILY 90 days lisinopril 5 mg PO DAILY needle (disp) 25 gauge (BD Regular [place]) As directed for testosterone injection polyethylene glycol 3350 (Miralax) 238 grams PO ONCE sertraline 25 mg PO DAILY sildenafil 100 mg PO DAILY PRN 30 days syringe (disposable) (BD Luer-Nery Syringe) As directed testosterone cypionate 50 mg (0.25 mL) subcut Q4W 28 days HPI Comments Details: Antwon is a very pleasant 49 year old male patient of . He is being follow-up on today via telehealth for his hypogonadism. Of note, during last office visit approximately 2 months ago recommendations were made for therapeutic phlebotomy due to elevated hemoglobin and hematocrit. In discussion with the patient today he reports to be undergoing therapeutic phlebotomy and is taking testosterone as prescribed. Recent PSA, testosterone, free testosterone, hemoglobin, and hematocrit results were reviewed with the patient today. As noted and trended below.... PSA 03/26 0.7, 01/25 0.8, 05/27 0.7, 08/28 0.9 Total Testosterone 03/26 885, 07/26 683, 01/25 850, 03/27 352, 05/27 585, 08/28 319 Free testosterone 07/26 165.3, 01/25 158.9, 03/27 117.2, 05/27 122.9, 08/28 86.8 Hemoglobin 03/26 19.1, 07/26 17.7, 01/25 19, 03/27 17.8, 05/27 19.0, 08/28 18.2 Hematocrit 03/26 55.9, 07/26 51.6, 01/25 54.4, 03/27 53.0, 05/27 54.8, 08/28 54.5 Estradiol 01/25 40, 03/27 16, 05/27 31 FSH 05/27 <0.7 LH 05/27 <0.2 Prolactin 05/27 6.0 SHBG 05/27 21 We discussed at length further treatment options for hypogonadism to include testopel verses trial of Xyostead. We discussed continuation of therapeutic phlebotomy given increase in hemoglobin and hematocrit. He discusses wanting to move forward with testosterone as prescribed at this time and will further investigate further treatment options of hypogonadism as discussed. Patient otherwise denies any bothersome urinary issues or concerns at this time. He reports be happy with current voiding parameters. He denies any bothersome urological issues or concerns at this time. He discusses at length his family history of prostate cancer (father) who is currently undergoing treatment for reoccurrence of prostate cancer. He otherwise offers no other issues or concerns at this time. PREVIOUS OFFICE NOTE INFORMATION Hypogonadism:? Current dosing 50units 2 times weekly ? He presents today for?further evaluation and followup of his hypogonadism - ?- on injectable - Injection Days - Fri/Fri, Labs: Fri pm ?- discussed laboratory results.? Initial symptoms include? erectile dysfunction ?Yes ? decreased libido ?No ? change in mood/depression ?No ? in muscle size/strength ?No ? increased fatigue/malaise ?Yes ? increased abdominal fat ?No ? tender breasts/gynecomastia ?Yes ? hair loss ?No ? osteopenia ?No ? The onset of symptoms has been?over the past few years - 2012 started using testosterone and it. Was using up to 600 mg per week. Currently injecting 200 mg per week. In addition has used anvar and hCG in the past. Has had gynecomastia with discharge. Also used trenbolone. ?- 09/20 - pulsed restart ?- 01/18 clomid 50mg TIW ?- 03/20 clomid daily, 12/20 T replacement 100 units per week subcutaneous, add anastrazole 08/07 tab, 03/22 Lower T to 80U per week, ?01/21 reconfirm 80 units per week.? Erectile status?erections are adequate for penetration.? Associate conditions include? other ?external testosterone use ? Laboratory results?12/18 , testosterone 245 , low, LH , low 1.5 ?04/20 T 240, 04/21 T 915, 12/20 T 440, 01/20 High free T, low SHBG, high estradiol ?01/21 T 1200, hCT 52, 07/24 T 423, 01/23 T 622 H 55.6, 07/25 T 670 H 53.4 P 0.60 ? Current therapy includes?injectable exogenous testosterone ?- , aromatase inhibitor - anastrazole 1/4 tablet twice per week ? Prior therapy includes?- pulsed restart - unsuccessful ?- T replacement, aromatase inhibitor ? Diagnosis based on history and laboratory results?Hypogonadotrophic Hypogonadism.? 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 Current occupational exposures/hazards: No Cognitive needs: No Hearing needs: No Vision needs: No Review of Systems Const All systems reviewed & are unremarkable except as noted in HPI and below Physical Exam Const General: cooperative Orientation/consciousness: patient oriented x3 Resp Effort & Inspection: able to speak in complete sentences Neuro General: patient oriented x3 Psych Speech and movement: Clear speech present Attitude: cooperative Thought process: Normal thought process present Thought content: Normal thought content present Insight: Fair insight present (Psych) Judgement: Fair judgement present (Psych) Assessment & Plan Assessment & Plan (1) Hypogonadism in male: Code(s): E29.1 - Testicular hypofunction Category: Medical (2) Elevated hemoglobin: Code(s): D58.2 - Other hemoglobinopathies Category: Medical (3) Family hx of prostate cancer: Code(s): Z80.42 - Family history of malignant neoplasm of prostate Category: Medical (4) Polycythemia: Code(s): D75.1 - Secondary polycythemia Category: Medical Plan Recent testosterone, free testosterone, PSA, hemoglobin and hematocrit results reviewed with the patient today; as noted above. Will continue with therapeutic phlebotomy given increase in H&H . We discussed other treatment options for hypogonadism given labile labs with current therapy; we discuss trial of testopel or Xyostead We discussed affects of increase in hemoglobin and hematocrit levels on the body as well as overall health and well-being. He otherwise denies any bothersome urinary issues. He reports be happy with current voiding parameters. Follow-up in 1 month with CBC, PSA, testosterone, and free testosterone; or sooner with any issues, concerns, and or questions. Orders: Orders Prostate Specific Antigen 1 Month E29.1 - Testicular hypofunction Testosterone, Free/Total 1 Month E29.1 - Testicular hypofunction Complete Blood Count no Diff 1 Month E29.1 - Testicular hypofunction Patient Instructions: The patient had an opportunity to ask questions regarding the treatment plan. All questions were answered. Physical exam, labs, and imaging were discussed and reviewed in detail. As well as risks, benefits, and discussion of treatment choices. No major barriers to understanding were identified. The patient expressed understanding and agreement with the above treatment plan. The patient was made aware they should contact our office by phone for worsening of their current condition, the appearance of new symptoms, or with any questions or concerns. Compliance is encouraged with any medications and follow up testing that is ordered. It is a privilege to be allowed the opportunity to participate in? your urological care.? Again, if you have any questions or concerns If you have any questions or concerns please do not hesitate to contact me. The office is [phone]. This note is constructed using voice recognition software. While every effort has been made to ensure accuracy mental health aides teacher errors may have been included. Yours sincerely, MONICA Thurman Coding Level of Care Code Tele Est Pt Level 3 (19060) Diagnoses Hypogonadism in male E29.1 Elevated hemoglobin D58.2 Family hx of prostate cancer Z80.42 Polycythemia D75.1
== END 2024-08-23 16:32 | disposition home or self-care (01) ==
LOC: HO.HUSH 15:13
PROVIDERS: PCP Nurse Practitioner Family; Visit Provider Nurse Practitioner Family
DX: E29.1 Testicular hypofunction (principal); D58.2 Other hemoglobinopathies; Z80.42 Family history of malignant neoplasm of prostate
CPT/HCPCS: 98013

== ENCOUNTER → 2024-08-23 15:13 | Outpatient (BNVA) | payer OTHER, SELFPAY | PROVIDERS: PCP Nurse Practitioner Family; Visit Provider Nurse Practitioner Family ==

== ENCOUNTER 2024-09-13 12:55 | Outpatient (REF) | payer OTHER, SELFPAY | END 2024-09-13 12:56 | disposition home or self-care (01) | LOC: HO.BBR 12:55 | PROVIDERS: PCP Nurse Practitioner Family; Visit Provider Nurse Practitioner Family | DX: D75.1 Secondary polycythemia (principal) | CPT/HCPCS: 85014; 85018; 99195 ==

== ENCOUNTER 2024-10-11 15:19 | Outpatient (REF) | payer OTHER, SELFPAY | END 2024-10-11 15:20 | disposition home or self-care (01) | LOC: HO.BBR 15:19 | PROVIDERS: PCP Nurse Practitioner Family; Visit Provider Nurse Practitioner Family | DX: D75.1 Secondary polycythemia (principal) | CPT/HCPCS: 85018; 99195 ==

== ENCOUNTER 2024-10-22 08:57 | Outpatient (REF) | payer OTHER, SELFPAY ==
[2024-10-22 11:35] LABS: Mean Corpuscular Hemoglobin 30.5 pg (27.0-33.0); Mean Corpuscular Volume 89.6 fL (80.0-98.0); Platelet Count 156 X10*3/uL (160-400); Red Blood Count 5.58 X10*6/uL (4.60-5.80); Red Cell Distribution Width 12.3 % (11.0-16.0); White Blood Count 8.3 X10*3/uL (4.8-10.8)
[2024-10-22 11:56] LABS: Prostate Specific Antigen 0.71 ng/mL (<0.05-4.0)
[2024-10-30 12:24] LABS: Testosterone, Free 114.1 pg/mL (35.0-155.0); Testosterone, Total 480 ng/dL (250-1100)
== END 2024-10-22 08:58 | disposition home or self-care (01) ==
LOC: HO.WFDLDS 08:57
PROVIDERS: Visit Provider Nurse Practitioner Family
DX: E29.1 Testicular hypofunction (principal)
CPT/HCPCS: 36415; 84153; 84402; 84403; 85027

== ENCOUNTER 2024-11-08 15:35 | Outpatient (REF) | payer OTHER, SELFPAY | END 2024-11-08 15:36 | disposition home or self-care (01) | LOC: HO.BBR 15:35 | PROVIDERS: PCP Nurse Practitioner Family; Visit Provider Nurse Practitioner Family | DX: D75.1 Secondary polycythemia (principal) | CPT/HCPCS: 85018; 99195 ==

== ENCOUNTER 2024-11-12 08:41 | Outpatient (REF) | payer OTHER, SELFPAY ==
[2024-11-12 11:38] LABS: MANUAL DIFF FLAG NO
[2024-11-12 11:45] LABS: Basophils Percent Auto 0.3 % (0-2); Eosinophils Absolute Auto 0.1 X10*3/uL (0.0-0.4); Eosinophils Percent Auto 1.3 % (0-4); Hematocrit 46.8 % (42.0-52.0); Hemoglobin 15.9 g/dl (14.0-18.0); Imm Gran Abs Auto 0.04 X10*3/uL (0.00-0.03); Imm Gran Pct Auto 0.6 % (0.0-0.4); Lymphocytes Absolute Auto 1.3 X10*3/uL (1.2-4.9); Lymphocytes Percent Auto 20.7 % (20-40); Mean Corpuscular Hemoglobin 30.5 pg (27.0-33.0); Mean Corpuscular Volume 89.7 fL (80.0-98.0); Mean Platelet Volume 11.3 fL (9.4-12.4); Monocytes Absolute Auto 0.8 X10*3/uL (0.1-1.2); Monocytes Percent Auto 12.4 % (2-11); Neutrophils Absolute Auto 4.1 x10*3/uL (2.0-8.3); Neutrophils Percent Auto 64.7 % (45-73); Platelet Count 154 X10*3/uL (160-400); Red Blood Count 5.22 X10*6/uL (4.60-5.80); Red Cell Distribution Width 12.8 % (11.0-16.0); White Blood Count 6.3 X10*3/uL (4.8-10.8)
[2024-11-12 12:19] LABS: Alanine Aminotransferase 50 U/L (0-40); Alkaline Phosphatase 67 U/L (39-117); Anion Gap 10 (12-20); Aspartate Amino Transferase 36 U/L (5-37); Bilirubin Total 0.5 mg/dL (0.0-1.0); Blood Urea Nitrogen 20 mg/dL (9-16); Carbon Dioxide 28 mmol/L (22-29); Chloride 109 mmol/L (96-108); Cholesterol 161 mg/dL (<200); Estimated Glomerular Filt Rate > 60; Glucose Fasting 93 mg/dL (60-99); HDL Cholesterol 42 mg/dL (>40); LDL Cholesterol Calculated 102 mg/dL (<100); Potassium 4.6 mmol/L (3.3-5.1); Sodium 142 mmol/L (135-145); Total Protein 6.8 g/dL (6.5-8.0); Triglycerides 89 mg/dL (<150)
== END 2024-11-12 08:42 | disposition home or self-care (01) ==
LOC: HO.WFDLDS 08:41
PROVIDERS: Visit Provider Nurse Practitioner Family
DX: Z00.00 Encounter for general adult medical examination without abnormal findings (principal); D58.2 Other hemoglobinopathies; E78.5 Hyperlipidemia, unspecified
CPT/HCPCS: 36415; 80053; 80061; 85025

== ENCOUNTER 2024-11-15 15:57 | Outpatient (AMB) | payer OTHER, SELFPAY ==
--- NOTE | 2024-11-15 16:04 | MHC.OFFVIS ---
Intake Visit Reasons: 6w followup Intake Note: Patient presents today for follow up on: hypogonadism ,polycythemia, and lab results Testosterone: 480; Free Testosterone: 114.1 PSA: 0.71 Urology Medication: Testosterone and sildenafil Antibiotic Allergy:NONE Blood Thinner:NONE Molasses And Caramel Operator Required: No Accompanied by: Self / Same As Patient Allergies No Known Allergies Allergy (Verified 11/15/24 16:48) Medication List - Last Reconciled 11/15/24 by THIERNO ThurmanP- amlodipine 10 mg PO DAILY ezetimibe 10 mg PO DAILY 90 days lisinopril 5 mg PO DAILY needle (disp) 25 gauge (BD Regular [place]) As directed for testosterone injection sildenafil 100 mg PO DAILY PRN 30 days syringe (disposable) (BD Luer-Nery Syringe) As directed testosterone cypionate 50 mg (0.25 mL) subcut Q4W 28 days HPI Comments Details: Antwon is a very pleasant 49 year old male patient of . He presents to the office today for follow-up of his hypogonadism. In discussion with the patient today reports to be doing and feeling well. He denies having had any bothersome urinary issues or concerns since his last office visit here. He continues with therapeutic phlebotomy due to elevated hemoglobin and hematocrit with history of hypogonadism on testosterone therapy. Recent labs were reviewed with the patient today as noted and trended below: PSA 03/26 0.7, 01/25 0.8, 05/27 0.7, 08/28 0.9, 10/26 0.7 Total Testosterone 03/26 885, 07/26 683, 01/25 850, 03/27 352, 05/27 585, 08/28 319, 10/26 480 Free testosterone 07/26 165.3, 01/25 158.9, 03/27 117.2, 05/27 122.9, 08/28 86.8, 10/26 114.1 Hemoglobin 03/26 19.1, 07/26 17.7, 01/25 19, 03/27 17.8, 05/27 19.0, 08/28 18.2, 11/26 15.9 Hematocrit 03/26 55.9, 07/26 51.6, 01/25 54.4, 03/27 53.0, 05/27 54.8, 08/28 54.5, 11/26 46.8 Estradiol 01/25 40, 03/27 16, 05/27 31 FSH 05/27 <0.7 LH 05/27 <0.2 Prolactin 05/27 6.0 SHBG 05/27 21 Patient currently wishes to continue with subQ administration of testosterone replacement. We did discuss however further treatment options of hypogonadism such as testopel verses trial of Xyostead. He reports administering 0.2ml of testosterone sub-Q 2 times per week as prescribed. However he is enquiring increase in dosage as he does feel borderline symptoms of hypogonadism. Patient otherwise denies any bothersome urinary issues or concerns at this time. He reports be happy with current voiding parameters. He denies any bothersome urological issues or concerns at this time. He discusses at length his family history of prostate cancer (father) who is currently undergoing treatment for reoccurrence of prostate cancer. He otherwise offers no other issues or concerns at this time. PREVIOUS OFFICE NOTE INFORMATION Hypogonadism:? Current dosing 50units 2 times weekly ? He presents today for?further evaluation and followup of his hypogonadism - ?- on injectable - Injection Days - Fri/Fri, Labs: Fri pm ?- discussed laboratory results.? Initial symptoms include? erectile dysfunction ?Yes ? decreased libido ?No ? change in mood/depression ?No ? in muscle size/strength ?No ? increased fatigue/malaise ?Yes ? increased abdominal fat ?No ? tender breasts/gynecomastia ?Yes ? hair loss ?No ? osteopenia ?No ? The onset of symptoms has been?over the past few years - 2012 started using testosterone and it. Was using up to 600 mg per week. Currently injecting 200 mg per week. In addition has used anvar and hCG in the past. Has had gynecomastia with discharge. Also used trenbolone. ?- 09/20 - pulsed restart ?- 01/18 clomid 50mg TIW ?- 03/20 clomid daily, 12/20 T replacement 100 units per week subcutaneous, add anastrazole 08/07 tab, 03/22 Lower T to 80U per week, ?01/21 reconfirm 80 units per week.? Erectile status?erections are adequate for penetration.? Associate conditions include? other ?external testosterone use ? Laboratory results?12/18 , testosterone 245 , low, LH , low 1.5 ?04/20 T 240, 04/21 T 915, 12/20 T 440, 01/20 High free T, low SHBG, high estradiol ?01/21 T 1200, hCT 52, 07/24 T 423, 01/23 T 622 H 55.6, 07/25 T 670 H 53.4 P 0.60 ? Current therapy includes?injectable exogenous testosterone ?- , aromatase inhibitor - anastrazole 1/4 tablet twice per week ? Prior therapy includes?- pulsed restart - unsuccessful ?- T replacement, aromatase inhibitor ? Diagnosis based on history and laboratory results?Hypogonadotrophic Hypogonadism.? 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 Current occupational exposures/hazards: No Cognitive needs: No Hearing needs: No Vision needs: No Review of Systems Const All systems reviewed & are unremarkable except as noted in HPI and below Physical Exam Const General: cooperative, healthy appearing, comfortable, no acute distress, well developed, alert and awake Orientation/consciousness: patient oriented x3 Limitations: no limitations HEENT Head: Yes normal to inspection, Yes normocephalic and Yes atraumatic Ears: hearing grossly normal bilaterally Eyes General: appearance normal, both eyes and all related structures Neck Neck: Yes normal visual inspection and Yes trachea midline Chest Chest palpation & inspection: normal inspection of the chest Resp Effort & Inspection: normal respiratory effort and able to speak in complete sentences Cardio Rate: regular rate GI Inspection: Yes normal to inspection General: Yes no CVA tenderness Back/Spine/Pelvis Back: no CVA tenderness Skin General skin exam: no rashes or lesions noted Neuro General: patient oriented x3 Extrem General: Yes normal to inspection Psych Appearance: grossly normal and well kempt Mental Status: mental status grossly normal Speech and movement: Clear speech present Affect: normal affect Attitude: cooperative Thought process: Normal thought process present Thought content: Normal thought content present Insight: Fair insight present (Psych) Judgement: Fair judgement present (Psych) Results AMB Urinalysis, Automated UA Leukoctes 0 Mimi/uL Last Edit by [employer] Paz on 11/15/24 16:27 UA Nitrite Last Edit by [employer] on 11/15/24 16:27 UA Urobilinogen 0.2 mg/dL Last Edit by [employer]leandra on 11/15/24 16:27 UA Protein 15 mg/dL Last Edit by [employer]ak[employer]tie Mullen on 11/15/24 16:27 UA pH 6.0 Last Edit by [employer] Mullen on 11/15/24 16:27 UA Blood 0 Maurilio/uL Last Edit by [employer] Paz on 11/15/24 16:27 UA Specific [place] 1.025 Last Edit by [employer]leandra on 11/15/24 16:27 UA Ketone Last Edit by Michelle Mullen on 11/15/24 16:27 UA Bilirubin 0 mg/dL Last Edit by Michelle Mullen on 11/15/24 16:27 UA Glucose 0 mg/dL Last Edit by Michelle Mullen on 11/15/24 16:27 Results Reviewed Results Reviewed: Laboratory Last Values Urine pH (Auto) 6.0 11/15/24 16:26 Specific [place] (Auto) 1.025 11/15/24 16:26 Urine Protein (Auto) 15 mg/dL 11/15/24 16:26 Glucose (UA)(Auto) 0 mg/dL 11/15/24 16:26 Urine Blood (Auto) 0 Maurilio/uL 11/15/24 16:26 Urine Bilirubin (Auto) 0 mg/dL 11/15/24 16:26 Urine Urobilinogen (Auto) 0.2 mg/dL 11/15/24 16:26 Leukocyte Esterase (Auto) 0 Mimi/uL 11/15/24 16:26 Assessment & Plan Assessment & Plan (1) Hypogonadism in male: Code(s): E29.1 - Testicular hypofunction Category: Medical Plan In office urinalysis results reviewed with the patient today; as noted above. Recent CBC, PSA, and testosterone free and total results reviewed with the patient today. Will continue with therapeutic phlebotomy pending hemoglobin levels Continue testosterone replacement as prescribed; refill provided He otherwise denies any bothersome urinary issues. He reports be happy with current voiding parameters. We discussed further treatment options of hypogonadism and risks and benefits of these treatment options. Follow-up in 3 months with labs to be completed prior; or sooner with any issues, concerns, and or questions. Orders: Orders Prostate Specific Antigen 3 Months E29.1 - Testicular hypofunction AMB Urinalysis Automated Today Z13.9 - Encounter for screening, unspecified Testosterone, Free/Total 3 Months E29.1 - Testicular hypofunction Complete Blood Count no Diff 3 Months E29.1 - Testicular hypofunction Medications: Changed From testosterone cypionate inject 0.25 mls subcutaneously twice a week 50 mg (0.25 mL) subcut Q4W 28 days 2 mL 5RF E29.1 - Testicular hypofunction To testosterone cypionate inject 0.375 mls subcutaneously twice a week 75 mg (0.375 mL) subcut QWEEK 28 days 4 mL 5RF E29.1 - Testicular hypofunction Patient Instructions: The patient had an opportunity to ask questions regarding the treatment plan. All questions were answered. Physical exam, labs, and imaging were discussed and reviewed in detail. As well as risks, benefits, and discussion of treatment choices. No major barriers to understanding were identified. The patient expressed understanding and agreement with the above treatment plan. The patient was made aware they should contact our office by phone for worsening of their current condition, the appearance of new symptoms, or with any questions or concerns. Compliance is encouraged with any medications and follow up testing that is ordered. It is a privilege to be allowed the opportunity to participate in? your urological care.? Again, if you have any questions or concerns If you have any questions or concerns please do not hesitate to contact me. The office is [phone]. This note is constructed using voice recognition software. While every effort has been made to ensure accuracy hemming and tacking machine operator errors may have been included. Yours sincerely, MONICA Thurman Coding Level of Care Code Est Pt Level 3 (73802) Diagnoses Hypogonadism in male E29.1
== END 2024-11-15 16:47 | disposition home or self-care (01) ==
LOC: HO.HUSH 15:57
PROVIDERS: PCP Nurse Practitioner Family; Visit Provider Nurse Practitioner Family
DX: E29.1 Testicular hypofunction (principal); Z13.9 Encounter for screening, unspecified
CPT/HCPCS: 99213

== ENCOUNTER → 2024-11-15 15:57 | Outpatient (BNVA) | payer OTHER, SELFPAY | PROVIDERS: PCP Nurse Practitioner Family; Visit Provider Nurse Practitioner Family | DX: E29.1 Testicular hypofunction (principal) | CPT/HCPCS: 81003; 99212 ==

== ENCOUNTER 2024-11-18 07:25 | Outpatient (AMB) | payer OTHER, SELFPAY ==
--- NOTE | 2024-11-18 07:42 | A.OFFPC_ITS ---
Vital Signs 11/18/24 07:43 Height 6 ft Weight 226 lb BMI 30.6 BP 120/62 Blood Pressure Location Lt brachial Position Sitting Respiration 16 Pulse 82 Pulse Source Pulse Oximeter Temp 98.0 F Temp Source Oral Pulse Oximetry (%) 99 Oxygen Delivery Method Room Air Intake Visit Reasons: CPE Intake Note: Pt is here today for his PE Allergies No Known Allergies Allergy (Verified 11/18/24 08:22) Medication List - Last Reconciled 11/18/24 by PREETI Terry- amlodipine 10 mg PO DAILY ezetimibe 10 mg PO DAILY 90 days lisinopril 5 mg PO DAILY needle (disp) 25 gauge (BD Regular Bevel [place]) As directed for testosterone injection sildenafil 100 mg PO DAILY PRN 30 days syringe (disposable) (BD Luer-Nery Syringe) As directed testosterone cypionate 75 mg (0.375 mL) subcut QWEEK 28 days Tobacco use date assessed: 11/18/24 Dental Screening Dental Screen Date: 11/18/24 Did you have a dental visit in the last 12 months?: Yes Did you have a dental problem in the last 6 months where you did not have access to dental care?: No Was dental information given to patient?: Patient has dentist HPI CPE HPI Details History of Present Illness The patient is a 49-year-old male presenting for a physical examination. Two months prior, he experienced a twinge of discomfort in his right shoulder after pushing a truck out of a snow bank, with persisting tenderness localized to the anterior, superior area of the right deltoid. Though the pain has been improving over time, some tenderness remains. Physical activity at the gym is ongoing. Health Maintenance - Colon cancer screening is current. - Regular urology consultations for PSA checks. - On testosterone therapy. Social History - Engages in regular physical activity a t the gym. Review of Systems - Musculoskeletal: Reports right shoulde r tenderness specifically in the anterior, superior deltoid area. Denies any significant limitation in mobility or function. - Denies any systemic symptoms or other musculoskeletal complaints not related to the shoulder. -denies any Physical Exam General: Cooperative, healthy appearing, comfortable, no acute distress and well developed Orientation: Patient oriented x3 Limitations: No limitations Head: Normal to inspection Ears: Hearing grossly normal bilaterally Nose: Normal external nose present Face and sinus: Normal facial exam Eyes: Appearance normal, both eyes and all related structures Neck: Normal visual inspection and Yes full ROM Respiratory: Normal respiratory effort and able to speak in complete sentences. Clear to auscultation bilaterally Cardiovascular: Regular rate and rhythm. Normal S1 and S2 GI: Normal to inspection. Soft to palpation and nontender Skin: No rashes or lesions noted Neuro: Patient oriented x3 Extremities: Tenderness in the anterior, superior right deltoid. Negative Schumacher, positive Neers, negative Jobes. Normal to inspection otherwise. Results Plan During this routine physical examination visit, I addressed the patient's right shoulder pain, located in the anterior superior deltoid. Clinical examination indicated a positive Neer test, suggesting possible impingement. An X-ray is planned to further evaluate any structural issues. I advised specific rotator cuff exercises along with stretching to aid rehabilitation while continuing gym activities carefully. The patient's screenings and health management, including colon cancer and regular PSA screenings, are up to date, and he remains on testosterone therapy under urology supervision. Discussion Notes I discussed the findings of the musculoskeletal impingement vs small tear. positive Neer test. 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 I also advised him to monitor symptoms and balance gym activities accordingly. The patient's ongoing health maintenance including PSA checks and testosterone therapy were reviewed, ensuring that his proactive health measures remain current. Patient Instructions - Undergo X-ray of right shoulder as jean paul nned. - Follow prescribed exercises and stretc hes for shoulder rehabilitation. - Continue gym activities with care to n ot exacerbate shoulder pain. - Attend regular PSA checks as advised b y urology specialist. - Maintain adherence to current health m aintenance practices. [facility] Medical History Hypertensive crisis HTN (hypertension) Hypogonadism in male Surgical History S/P excision of lipoma (08/19/23) History of skin surgery Family History Father HTN (hypertension) High cholesterol Paternal Uncle High cholesterol Paternal Grandfather High cholesterol Mother HTN (hypertension) Social History Housing: House Alcohol intake: current Alcohol intake frequency: holidays/special occasions only Patient Tobacco Use Status: Never used Tobacco e-Cigarette/Vaping Use: Never Used Second Hand Smoke Exposure: No service: Yes Current occupational status: employed 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 1. Little interest or pleasure in doing things: not at all 2. Feeling down, depressed, or hopeless: not at all 3. Trouble falling or staying asleep, or sleeping too much: not at all 4. Feeling tired or having little energy: not at all 5. Poor appetite or overeating: not at all 6. Feeling bad about yourself - or that you are a failure or have let yourself or your family down: not at all 7. Trouble concentrating on things, such as reading the newspaper or watching television: not at all 8. Moving or speaking so slowly that other people could have noticed. Or the opposite - being so fidgety or restless that you have been moving around a lot more than usual: not at all 9. Thoughts that you would be better off or of hurting yourself in some way: not at all Total score: 0 Depression Screening Interpretation: Negative Depression Screening Done: Yes 67533 - PHQ-9 Billing: Yes Source: Developed by Drs. Ilir Luo, Deepali Aguero, David Perez and colleagues, with an educational patt from [employer]. Thrive Questionnaire Date Thrive assessed: 11/18/24 I am a: Patient What is your living situation today?: I have a steady place to live Within the past 12 months, did the food you bought not last and you didn't have the money to get more?: Never true Within the past 12 months, did you worry whether your food would run out before you got money to buy more?: Never true Do you have trouble paying for medicines?: No Do you have trouble getting transportation to medical appointments?: No Do you have trouble paying your heating and electricity bill?: No Do you have trouble taking care of your child, family member or friend?: No Do you have trouble with day-to-day activities such as bathing, preparing meals, shopping, managing finances, etc.?: No Are you currently unemployed and looking for a job?: No Are you interested in more education?: No Please select the resources that you would like help with: None Currently or been in a relationship where the following occur: No concerns reported THRIVE Score: 0 AUDIT C Alcohol Use Questionnaire (AUDIT-C) 1. How often do you have a drink containing alcohol?: Never Total Score: 0 Score Reviewed/Action Taken: Yes ANAY-7 AMB Questionnaire ANAY-7 Date ANAY - 7 assessed: 11/18/24 Feeling nervous, anxious, or on edge: 0 = Not at all Not being able to stop or control worryin = Not at all Worrying too much about different things: 0 = Not at all Trouble relaxin = Not at all Being so restless that it is hard to sit still: 0 = Not at all Becoming easily annoyed or irritable: 0 = Not at all Feeling afraid as if something awful might happen: 0 = Not at all Total ANAY-7 score (0-4 normal; 5-9 mild; 10-14 moderate; 15-21 severe): 0 Source: Developed by Drs. Ilir Luo, Deepali Aguero, David Perez and colleagues, with an educational patt from [employer]. Physical exam (Primary Care) Vital Signs: Last Vital Signs Temp 98.0 F 11/18/24 07:43 Pulse 82 11/18/24 07:43 Resp 16 11/18/24 07:43 BP 120/62 11/18/24 07:43 Pulse Ox 99 11/18/24 07:43 Oxygen Delivery Method Room Air 11/18/24 07:43 BMI result Body Mass Index 30.6 Tobacco/Smoking Status: Tobacco use Status Tobacco use date assessed 11/18/24 11/18/24 07:46 Patient Tobacco Use Status Never used Tobacco 11/18/24 07:46 e-Cigarette/Vaping Use Never Used 11/18/24 07:46 PHQ-9: PHQ-9 Score PHQ-9: Total score 0 11/18/24 07:57 Depression Screening Interpretation: Negative Thrive Assessment: Date of Thrive Assessment Date Thrive assessed 11/18/24 11/18/24 07:48 Currently or been in a relationship where the following occur: No concerns reported Coding Level of Care Code Est Pt Prev Care 40-64y(17493) Diagnoses Physical exam Z00.00 Right shoulder pain M25.511 Additional Codes PHQ-9 - 96286 - PHQ-9 Billing: Yes ([id number]) Assessment & Plan Assessment & Plan (1) Physical exam: Code(s): Z00.00 - Encounter for general adult medical examination without abnormal findings Category: Medical (2) Right shoulder pain: Code(s): M25.511 - Pain in right shoulder Category: Medical Plan . Orders: Orders XR shoulder RT min 2V Today M25.511 - Pain in right shoulder
[2024-11-18 07:43] VITALS: BP 120/62; PULSE 82; RESP 16; TEMP 36.7; O2SAT 99; BMI 30.6
== END 2024-11-18 08:19 | disposition home or self-care (01) ==
LOC: HO.HMCC 07:26
PROVIDERS: PCP Nurse Practitioner Family; Visit Provider Nurse Practitioner Family
DX: Z00.00 Encounter for general adult medical examination without abnormal findings (principal); M25.511 Pain in right shoulder

== ENCOUNTER → 2024-11-18 07:25 | Outpatient (BNVA) | payer OTHER, SELFPAY | PROVIDERS: PCP Nurse Practitioner Family; Visit Provider Nurse Practitioner Family | DX: Z00.00 Encounter for general adult medical examination without abnormal findings (principal); M25.511 Pain in right shoulder | CPT/HCPCS: 96127; 99396 ==

== ENCOUNTER 2024-12-06 15:21 | Outpatient (REF) | payer OTHER, SELFPAY | END 2024-12-06 15:22 | disposition home or self-care (01) | LOC: HO.BBR 15:21 | PROVIDERS: PCP Nurse Practitioner Family; Visit Provider Nurse Practitioner Family | DX: D75.1 Secondary polycythemia (principal) | CPT/HCPCS: 85018; 99195 ==

== ENCOUNTER 2025-01-03 15:21 | Outpatient (REF) | payer OTHER, SELFPAY | END 2025-01-03 15:22 | disposition home or self-care (01) | LOC: HO.BBR 15:21 | PROVIDERS: PCP Nurse Practitioner Family; Visit Provider Nurse Practitioner Family | DX: D75.1 Secondary polycythemia (principal) | CPT/HCPCS: 85018 ==

== ENCOUNTER 2025-01-31 15:31 | Outpatient (REF) | payer OTHER, SELFPAY | END 2025-01-31 15:32 | disposition home or self-care (01) | LOC: HO.BBR 15:31 | PROVIDERS: PCP Nurse Practitioner Family; Visit Provider Nurse Practitioner Family | DX: D75.1 Secondary polycythemia (principal) | CPT/HCPCS: 85018; 99195 ==

== ENCOUNTER 2025-02-03 09:50 | Outpatient (REF) | payer OTHER, SELFPAY ==
[2025-02-03 11:24] LABS: Hematocrit 51.3 % (42.0-52.0); Hemoglobin 16.9 g/dl (14.0-18.0); Mean Corpuscular HGB Conc 32.9 g/dl (31.0-36.0); Mean Corpuscular Hemoglobin 28.2 pg (27.0-33.0); Mean Corpuscular Volume 85.6 fL (80.0-98.0); NRBC Abs Auto 0.000 X10*3/uL (0.0-0.012); NRBC Pct Auto 0.0 /100WBC (0.0-0.2); Platelet Count 156 X10*3/uL (160-400); Red Blood Count 5.99 X10*6/uL (4.60-5.80); White Blood Count 6.9 X10*3/uL (4.8-10.8)
[2025-02-03 15:38] LABS: Prostate Specific Antigen 0.79 ng/mL (<0.05-4.0)
[2025-02-03 15:42] LABS: Cholesterol 175 mg/dL (<200); HDL Cholesterol 35 mg/dL (>40); Triglycerides 135 mg/dL (<150)
[2025-02-08 13:12] LABS: Testosterone, Free 92.5 pg/mL (35.0-155.0)
== END 2025-02-03 09:51 | disposition home or self-care (01) ==
LOC: HO.WFDLDS 09:50
PROVIDERS: Nurse Practitioner Family; Visit Provider Nurse Practitioner Family
DX: E29.1 Testicular hypofunction (principal); D58.2 Other hemoglobinopathies
CPT/HCPCS: 36415; 80061; 84153; 84402; 84403; 85027

== ENCOUNTER 2025-02-21 15:59 | Outpatient (AMB) | payer OTHER, SELFPAY ==
--- NOTE | 2025-02-21 16:00 | MHC.OFFVIS ---
Intake Visit Reasons: 3m/ PSA/ CBC/ Testo & free(set) Intake Note: Patient is present for 3M/PSA/CBC/TESTO & FREE Urology Medication:SILDENAFIL,TESTOSTERONE Antibiotic Allergy:NONE Blood Thinner:NONE Voice Network Administrator Required: No Allergies No Known Allergies Allergy (Verified 02/21/25 16:08) Medication List - Last Reconciled 02/21/25 by Mary Feldman HOP SEPARATOR- amlodipine 10 mg PO DAILY ezetimibe 10 mg PO DAILY 90 days lisinopril 5 mg PO DAILY needle (disp) 25 gauge (BD Regular Bevel [place]) As directed for testosterone injection sildenafil 100 mg PO DAILY PRN 30 days syringe (disposable) (BD Luer-Nery Syringe) DIRECTED TWICE WEEKLY testosterone cypionate 75 mg (0.375 mL) subcut QWEEK 28 days HPI Comments Details: Antwon is a very pleasant 49 year old male patient of . He presents to the office today for follow-up of his hypogonadism. In discussion with the patient today reports to be doing and feeling well. He denies having had any bothersome urinary issues or concerns since his last office visit here. Previously patient had been performing therapeutic phlebotomy due to elevated hemoglobin and hematocrit with his history of hypogonadism on testosterone therapy. However, over the last 4 months has not needed to undergo therapeutic phlebotomy. He reports compliance with testosterone as prescribed. Recent labs were reviewed with the patient today as noted and trended below: PSA 03/26 0.7, 01/25 0.8, 05/27 0.7, 08/28 0.9, 10/26 0.7, 02/25 0.8 Total Testosterone 03/26 885, 07/26 683, 01/25 850, 03/27 352, 05/27 585, 08/28 319, 10/26 480, 02/25 370 Free testosterone 07/26 165.3, 01/25 158.9, 03/27 117.2, 05/27 122.9, 08/28 86.8, 10/26 114.1, 02/25 92.5 Hemoglobin 03/26 19.1, 07/26 17.7, 01/25 19, 03/27 17.8, 05/27 19.0, 08/28 18.2, 11/26 15.9, 02/25 16.9 Hematocrit 03/26 55.9, 07/26 51.6, 01/25 54.4, 03/27 53.0, 05/27 54.8, 08/28 54.5, 11/26 46.8, 02/25 51.3 Estradiol 01/25 40, 03/27 16, 05/27 31 FSH 05/27 <0.7 LH 05/27 <0.2 Prolactin 05/27 6.0 SHBG 05/27 21 Patient currently wishes to continue with subQ administration of testosterone replacement. We did discuss however further treatment options of hypogonadism such as testopel verses trial of Xyostead. He reports administering 0.375ml of testosterone sub-Q 2 times per week as prescribed. He denies any bothersome urinary issues or concerns at this time. He reports be happy with current voiding parameters. He denies any bothersome urological issues or concerns at this time. He discusses his family history of prostate cancer (father) who is currently undergoing treatment for reoccurrence of prostate cancer. He otherwise offers no other issues or concerns at this time. PREVIOUS OFFICE NOTE INFORMATION Hypogonadism:? Current dosing 50units 2 times weekly ? He presents today for?further evaluation and followup of his hypogonadism - ?- on injectable - Injection Days - Fri/Fri, Labs: Fri pm ?- discussed laboratory results.? Initial symptoms include? erectile dysfunction ?Yes ? decreased libido ?No ? change in mood/depression ?No ? in muscle size/strength ?No ? increased fatigue/malaise ?Yes ? increased abdominal fat ?No ? tender breasts/gynecomastia ?Yes ? hair loss ?No ? osteopenia ?No ? The onset of symptoms has been?over the past few years - 2012 started using testosterone and it. Was using up to 600 mg per week. Currently injecting 200 mg per week. In addition has used anvar and hCG in the past. Has had gynecomastia with discharge. Also used trenbolone. ?- 09/20 - pulsed restart ?- 01/18 clomid 50mg TIW ?- 03/20 clomid daily, 12/20 T replacement 100 units per week subcutaneous, add anastrazole 1/ tab, 03/22 Lower T to 80U per week, ?01/21 reconfirm 80 units per week.? Erectile status?erections are adequate for penetration.? Associate conditions include? other ?external testosterone use ? Laboratory results?12/18 , testosterone 245 , low, LH , low 1.5 ?04/20 T 240, 04/21 T 915, 12/20 T 440, 01/20 High free T, low SHBG, high estradiol ?01/21 T 1200, hCT 52, 07/24 T 423, 01/23 T 622 H 55.6, 07/25 T 670 H 53.4 P 0.60 ? Current therapy includes?injectable exogenous testosterone ?- , aromatase inhibitor - anastrazole 1/4 tablet twice per week ? Prior therapy includes?- pulsed restart - unsuccessful ?- T replacement, aromatase inhibitor ? Diagnosis based on history and laboratory results?Hypogonadotrophic Hypogonadism.? [facility] Medical History Hypertensive crisis HTN (hypertension) Hypogonadism in male Surgical History S/P excision of lipoma (08/19/23) History of skin surgery Family History Father HTN (hypertension) High cholesterol Paternal Uncle High cholesterol Paternal Grandfather High cholesterol Mother HTN (hypertension) Social History Housing: House Alcohol intake: current Alcohol intake frequency: holidays/special occasions only Patient Tobacco Use Status: Never used Tobacco e-Cigarette/Vaping Use: Never Used Second Hand Smoke Exposure: No service: Yes Current occupational status: employed 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 Current occupational exposures/hazards: No Cognitive needs: No Hearing needs: No Vision needs: No Review of Systems Const All systems reviewed & are unremarkable except as noted in HPI and below Physical Exam Const General: cooperative, healthy appearing, comfortable, no acute distress, well developed, alert and awake Orientation/consciousness: patient oriented x3 Limitations: no limitations HEENT Head: Yes normal to inspection, Yes normocephalic and Yes atraumatic Ears: hearing grossly normal bilaterally Eyes General: appearance normal, both eyes and all related structures Neck Neck: Yes normal visual inspection and Yes trachea midline Chest Chest palpation & inspection: normal inspection of the chest Resp Effort & Inspection: normal respiratory effort and able to speak in complete sentences Cardio Rate: regular rate GI Inspection: Yes normal to inspection General: Yes no CVA tenderness Back/Spine/Pelvis Back: no CVA tenderness Skin General skin exam: no rashes or lesions noted Neuro General: patient oriented x3 Extrem General: Yes normal to inspection Psych Appearance: grossly normal and well kempt Mental Status: mental status grossly normal Speech and movement: Clear speech present Affect: normal affect Attitude: cooperative Thought process: Normal thought process present Thought content: Normal thought content present Insight: Fair insight present (Psych) Judgement: Fair judgement present (Psych) Results AMB Urinalysis, Automated UA Leukoctes 0 Mimi/uL Last Edit by LEA Gonzales on 02/21/25 16:28 UA Nitrite Negative Last Edit by LEA Gonzales on 02/21/25 16:28 UA Urobilinogen 0.2 mg/dL Last Edit by LEA Gonzales on 02/21/25 16:28 UA Protein 15 mg/dL Last Edit by LEA Gonzales on 02/21/25 16:28 UA pH 6.0 Last Edit by LEA Gonzales on 02/21/25 16:28 UA Blood 0 Maurilio/uL Last Edit by LAE Gonzales on 02/21/25 16:28 UA Specific [place] 1.025 Last Edit by LEA Gonzales on 02/21/25 16:28 UA Ketone Negative Last Edit by LEA Gonzales on 02/21/25 16:28 UA Bilirubin 0 mg/dL Last Edit by LEA Gonzales on 02/21/25 16:28 UA Glucose 0 mg/dL Last Edit by LEA Gonzales on 02/21/25 16:28 Results Reviewed Results Reviewed: Laboratory Last Values Urine pH (Auto) 6.0 02/21/25 16:28 Specific [place] (Auto) 1.025 02/21/25 16:28 Urine Protein (Auto) 15 mg/dL 02/21/25 16:28 Glucose (UA)(Auto) 0 mg/dL 02/21/25 16:28 Urine Ketones (Auto) Negative 02/21/25 16:28 Urine Blood (Auto) 0 Maurilio/uL 02/21/25 16:28 Urine Nitrite (Auto) Negative 02/21/25 16:28 Urine Bilirubin (Auto) 0 mg/dL 02/21/25 16:28 Urine Urobilinogen (Auto) 0.2 mg/dL 02/21/25 16:28 Leukocyte Esterase (Auto) 0 Mimi/uL 02/21/25 16:28 Assessment & Plan Assessment & Plan (1) Hypogonadism in male: Code(s): E29.1 - Testicular hypofunction Category: Medical Plan In office urinalysis results reviewed with the patient today; as noted above. Recent CBC, PSA, and testosterone free and total results reviewed with the patient today as noted above. Will discontinue therapeutic phlebotomy and continue with surveillance monitoring Continue testosterone replacement as prescribed; refill provided. He otherwise denies any bothersome urinary issues. He reports be happy with current voiding parameters. We discussed further treatment options of hypogonadism and risks and benefits of these treatment options. Follow-up in 3 months CBC, PSA, and testosterone to be completed prior; or sooner with any issues, concerns, and or questions. Orders: Orders AMB Urinalysis Automated Today Z13.9 - Encounter for screening, unspecified Testosterone, Free/Total 3 Months E29.1 - Testicular hypofunction Prostate Specific Antigen 3 Months E29.1 - Testicular hypofunction Complete Blood Count no Diff 3 Months E29.1 - Testicular hypofunction Medications: Refilled testosterone cypionate inject 0.375 mls subcutaneously twice a week 75 mg (0.375 mL) subcut QWEEK 4 mL 5RF 28 days E29.1 - Testicular hypofunction Patient Instructions: The patient had an opportunity to ask questions regarding the treatment plan. All questions were answered. Physical exam, labs, and imaging were discussed and reviewed in detail. As well as risks, benefits, and discussion of treatment choices. No major barriers to understanding were identified. The patient expressed understanding and agreement with the above treatment plan. The patient was made aware they should contact our office by phone for worsening of their current condition, the appearance of new symptoms, or with any questions or concerns. Compliance is encouraged with any medications and follow up testing that is ordered. It is a privilege to be allowed the opportunity to participate in? your urological care.? Again, if you have any questions or concerns If you have any questions or concerns please do not hesitate to contact me. The office is [phone]. This note is constructed using voice recognition software. While every effort has been made to ensure accuracy senior telecommunications specialist errors may have been included. Yours sincerely, MONICA Thurman Coding Level of Care Code Est Pt Level 4 (42548) Diagnoses Hypogonadism in male E29.1
== END 2025-02-21 16:36 | disposition home or self-care (01) ==
LOC: HO.HUSH 15:59
PROVIDERS: PCP Nurse Practitioner Family; Visit Provider Nurse Practitioner Family
DX: Z13.9 Encounter for screening, unspecified (principal); E29.1 Testicular hypofunction
CPT/HCPCS: 99214

== ENCOUNTER → 2025-02-21 15:59 | Outpatient (BNVA) | payer OTHER, SELFPAY | PROVIDERS: PCP Nurse Practitioner Family; Visit Provider Nurse Practitioner Family | DX: E29.1 Testicular hypofunction (principal) | CPT/HCPCS: 81003; 99212 ==

== ENCOUNTER 2025-04-14 08:44 | Outpatient (REF) | payer OTHER, SELFPAY ==
--- OUTSIDE RECORDS SUMMARY | 2025-04-14 09:48 | XMS_ITS ---
Author Name [facility] ([place], [place]) Organization Unknown Care Team Organization Name Specialty Phone Email Start Date End Da te [facility] YOGESH HERNANDES Primary Care 06/11/2022 03/22/20 24
[2025-04-14 11:35] LABS: MANUAL DIFF FLAG NO
[2025-04-14 11:38] LABS: Hematocrit 50.7 % (42.0-52.0); Hemoglobin 16.5 g/dl (14.0-18.0); Imm Gran Abs Auto 0.04 X10*3/uL (0.00-0.03); Imm Gran Pct Auto 0.6 % (0.0-0.4); Lymphocytes Absolute Auto 1.3 X10*3/uL (1.2-4.9); Mean Corpuscular HGB Conc 32.5 g/dl (31.0-36.0); Mean Corpuscular Hemoglobin 27.7 pg (27.0-33.0); Mean Corpuscular Volume 85.2 fL (80.0-98.0); NRBC Abs Auto 0.000 X10*3/uL (0.0-0.012); NRBC Pct Auto 0.0 /100WBC (0.0-0.2); Platelet Count 146 X10*3/uL (160-400); Red Blood Count 5.95 X10*6/uL (4.60-5.80); White Blood Count 7.2 X10*3/uL (4.8-10.8)
[2025-04-14 11:45] LABS: Appearance Urine Clear; Glucose Urine UA Negative (Negative); PH 6.0 (5.0-9.0); Specific Gravity - Urine 1.025 (1.005-1.025)
[2025-04-14 11:57] LABS: Hematocrit 51.0 % (42.0-52.0); Hemoglobin 16.7 g/dl (14.0-18.0); Mean Corpuscular HGB Conc 32.7 g/dl (31.0-36.0); Mean Corpuscular Hemoglobin 27.9 pg (27.0-33.0); Mean Corpuscular Volume 85.1 fL (80.0-98.0); NRBC Abs Auto 0.000 X10*3/uL (0.0-0.012); NRBC Pct Auto 0.0 /100WBC (0.0-0.2); Platelet Count 155 X10*3/uL (160-400); Red Blood Count 5.99 X10*6/uL (4.60-5.80); White Blood Count 6.9 X10*3/uL (4.8-10.8)
[2025-04-14 12:06] LABS: Alanine Aminotransferase 40 U/L (0-40); Albumin Level 4.2 g/dL (3.5-5.0); Alkaline Phosphatase 73 U/L (39-117); Anion Gap 11 (12-20); Aspartate Amino Transferase 34 U/L (5-37); Blood Urea Nitrogen 15 mg/dL (9-16); Calcium 8.9 mg/dL (8.4-10.2); Carbon Dioxide 25 mmol/L (22-29); Chloride 109 mmol/L (96-108); Cholesterol 167 mg/dL (<200); Estimated Glomerular Filt Rate 51; HDL Cholesterol 36 mg/dL (>40); Potassium 4.4 mmol/L (3.3-5.1); Sodium 141 mmol/L (135-145); Total Protein 6.9 g/dL (6.5-8.0); Triglycerides 80 mg/dL (<150)
[2025-04-14 12:11] LABS: Prostate Specific Antigen 0.72 ng/mL (<0.05-4.0)
[2025-04-20 14:24] LABS: Testosterone, Free 312.7 pg/mL (35.0-155.0)
== END 2025-04-14 08:45 | disposition home or self-care (01) ==
LOC: HO.WFDLDS 08:44
PROVIDERS: Referring Provider Nurse Practitioner Family; Visit Provider Nurse Practitioner Family
DX: I10 Essential (primary) hypertension (principal); E29.1 Testicular hypofunction
CPT/HCPCS: 36415; 80053; 80061; 81003; 84153; 84402; 84403; 84443; 85025; 85027

== ENCOUNTER 2025-05-10 09:09 | Outpatient (AMB) | payer OTHER, SELFPAY ==
--- NOTE | 2025-05-10 09:37 | AM.OFFWIN_ITS ---
Intake Vital Signs 05/10/25 09:38 Height 6 ft Weight 230 lb BMI 31.2 BP 140/92 H Blood Pressure Location Lt brachial Position Sitting Pulse 74 Pulse Source Pulse Oximeter Temp 98.0 F Temp Source Oral Pulse Oximetry (%) 94 Oxygen Delivery Method Room Air Intake Visit Reasons: ep rash on head for several weeks Intake Note: pt presents with recurring rash to scalp only under hair- red, itchy and scabs over after scratching Patient Tobacco Use Status: Never used Tobacco Allergies No Known Allergies Allergy (Verified 05/10/25 09:39) Medication List - Last Reconciled 05/10/25 by Asuncion Sandoval MD amlodipine 10 mg PO DAILY ezetimibe 10 mg PO DAILY 90 days lisinopril 5 mg PO DAILY needle (disp) 25 gauge (BD Regular Bevel Richardson) As directed for testosterone injection sildenafil 100 mg PO DAILY PRN 30 days syringe (disposable) (BD Luer-Nery Syringe) DIRECTED TWICE WEEKLY testosterone cypionate 75 mg subcut .BIW Do you need a note to return to daycare/school/sports/work: No HPI ep rash on head for several weeks HPI Details History of Present Illness The patient is a 49-year-old male presenting with a rash. Rash: - Persistent rash experienced for few da ys now - Previous visits to urgent care without successful resolution. - Current symptoms include itchy rash pr esent on the forehead, back, and scalp. - Previous treatment included medicated shampoo and ciclopirox cream. - Ciclopirox cream was applied for seven days; however, the rash extended to new areas. - Rash characterized by clear bumps init ially perceived as dermatitis. - Experienced hair thinning on the scalp due to scratching trauma. - Associated with frequent gym activitie s and sweating. - Previous use of oral prednisone for se moo days with some improvement Problem List - Rash Plan - Discussed administration of oral predn isone to manage the rash, noting the previous course of prednisone was only seven days; a new course for ten days was prescribed. - Explained to the patient that predniso ne may alleviate symptoms, but sweating could be a recurrent trigger for the rash. - Recommendations provided to keep the s kin cool, possibly considering air conditioning to manage environmental triggers. - Follow-up with a referral to determine further treatment strategy, as the patient already has an appointment scheduled within the month. - Noted possibility of other etiologies, such as prickly heat, given symptoms' location and sweat-related exacerbation. Review of Systems - General: No fever no chills - Neurological: No headaches no dizziness - Ear nose throat: No sore throat no hearing difficulty no ear pain - Cardiovascular: No syncope, no chest pain, no palpitations - Gastrointestinal: No nausea vomiting or diarrhea - Endocrine: No polyuria polydipsia no heat intolerance - Genitourinary: No dysuria , no blood in urine Physical Exam General: No acute distress HEENT: No acute findings Neck: Supple Respiratory system: Able to talk in full sentences, no audible wheeze Gastrointestinal: No pain Extremities: No new findings DIETARY AIDE: Alert awake oriented x3 motor intact Skin: Rash present on forehead and back, scalp where patient has hair but not on other places, chest and anterior abdomen, maculopapular discrete 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 Rash: - Persistent rash experienced for few days now - Previous visits to urgent care without successful resolution. - Current symptoms include itchy rash present on the forehead, back, and scalp. - Previous treatment included medicated shampoo and ciclopirox cream. - Ciclopirox cream was applied for seven days; however, the rash extended to new areas. - Rash characterized by clear bumps initially perceived as dermatitis. - Experienced hair thinning on the scalp due to scratching trauma. - Associated with frequent gym activities and sweating. - Previous use of oral prednisone for seven days with some improvement Problem List - Rash Plan - Discussed administration of oral prednisone to manage the rash, noting the previous course of prednisone was only seven days; a new course for ten days was prescribed. - Explained to the patient that prednisone may alleviate symptoms, but sweating could be a recurrent trigger for the rash. - Recommendations provided to keep the skin cool, possibly considering air conditioning to manage environmental triggers. - Follow-up with a referral to determine further treatment strategy, as the patient already has an appointment scheduled within the month. - Noted possibility of other etiologies, such as prickly heat, given symptoms' location and sweat-related exacerbation. Medications: New prednisone 20 mg PO DAILY 10 tabs 0RF 10 days Asuncion Sandoval MD Changed From testosterone cypionate inject 0.375 mls subcutaneously twice a week 75 mg (0.375 mL) subcut QWEEK 28 days 4 mL 5RF E29.1 - Testicular hypofunction To testosterone cypionate inject 0.375 mls subcutaneously twice a week 75 mg subcut .BIW E29.1 - Testicular hypofunction PREETI Thurman- Coding Level of Care Code Est Pt Level 3 (58096) Diagnoses Pruritic rash L28.2
[2025-05-10 09:38] VITALS: BP 140/92; PULSE 74; TEMP 36.7; O2SAT 94; BMI 31.2
== END 2025-05-10 09:53 | disposition home or self-care (01) ==
PROVIDERS: PCP Nurse Practitioner Family; Visit Provider Internal Medicine
DX: L28.2 Other prurigo (principal)

== ENCOUNTER → 2025-05-10 09:09 | Outpatient (BNVA) | payer OTHER, SELFPAY | PROVIDERS: PCP Nurse Practitioner Family; Visit Provider Internal Medicine | DX: L28.2 Other prurigo (principal); E29.1 Testicular hypofunction | CPT/HCPCS: 99212 ==

== ENCOUNTER 2025-05-18 08:33 | Outpatient (REF) | payer OTHER, SELFPAY ==
[2025-05-18 11:59] LABS: Albumin Level 4.0 g/dL (3.5-5.0); Alkaline Phosphatase 60 U/L (39-117); Anion Gap 10 (12-20); Aspartate Amino Transferase 32 U/L (5-37); Blood Urea Nitrogen 20 mg/dL (9-16); Calcium 8.9 mg/dL (8.4-10.2); Carbon Dioxide 27 mmol/L (22-29); Chloride 107 mmol/L (96-108); Estimated Glomerular Filt Rate 55; Potassium 4.1 mmol/L (3.3-5.1); Sodium 140 mmol/L (135-145); Total Protein 6.7 g/dL (6.5-8.0)
[2025-05-18 12:10] LABS: Alanine Aminotransferase 38 U/L (0-40)
== END 2025-05-18 08:34 | disposition home or self-care (01) ==
LOC: HO.WFDLDS 08:33
PROVIDERS: Visit Provider Nurse Practitioner Family
DX: R79.89 Other specified abnormal findings of blood chemistry (principal)
CPT/HCPCS: 36415; 80053

== ENCOUNTER 2025-05-23 10:24 | Outpatient (AMB) | payer OTHER, SELFPAY ==
[2025-05-23 10:26] VITALS: BP 128/64; PULSE 86; RESP 16; O2SAT 95; BMI 31.6
--- NOTE | 2025-05-23 10:26 | A.OFFPC_ITS ---
Vital Signs 05/23/25 10:26 Height 6 ft Weight 233 lb BMI 31.6 BP 128/64 Blood Pressure Location Lt brachial Position Sitting Respiration 16 Pulse 86 Pulse Source Pulse Oximeter Pulse Oximetry (%) 95 Oxygen Delivery Method Room Air Intake Visit Reasons: 6 months f/up Antenna Engineer Required: No Accompanied by: Self / Same As Patient Allergies No Known Allergies Allergy (Verified 05/23/25 10:27) Medication List - Last Reconciled 05/23/25 by Jon Rivera [facility]- amlodipine 10 mg PO DAILY ezetimibe 10 mg PO DAILY 90 days lisinopril 5 mg PO DAILY needle (disp) 25 gauge (BD Regular Bevel Sumner) As directed for testosterone injection syringe (disposable) (BD Luer-Nery Syringe) DIRECTED TWICE WEEKLY testosterone cypionate 75 mg subcut .BIW Tobacco use date assessed: 05/23/25 Dental Screening Dental Screen Date: 05/23/25 Did you have a dental visit in the last 12 months?: Yes Did you have a dental problem in the last 6 months where you did not have access to dental care?: No Was dental information given to patient?: Patient has dentist HPI 6 months f/up HPI Details Chief Complaint The patient presents for follow-up management of dyslipidemia and hypertension. History of Present Illness The patient is a 50-year-old male presenting with dyslipidemia and hypertension. 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 His blood pressure is currently stable on amlodipine and lisinopril, and he is also taking generic Zetia for cholesterol management. The patient consumes creatinine and pre-workout supplements, which have been advised to be reduced due to the increased risk of arrhythmias. He denies experiencing any chest pain, shortness of breath, dizziness, or blurred vision. For the past seven weeks, the patient has been experiencing papillary lesions on his upper torso (purutic)which could be indicative of folliculitis. He also reports dry, scabby lesions on his scalp, for which he is using ketoconazole shampoo with some relief. Prednisone did help as well. 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, frequently vis its the gym Health Maintenance - Diet: Advised to work on dietary impro vements to manage cholesterol levels - Dermatology follow-up: Scheduled in next month and a half for papillary lesions Review of Systems - Cardiovascular: Denies chest pain, den ies shortness of breath - Neurological: Denies dizziness, denies blurred vision Physical Exam General: Cooperative, healthy appearing, comfortable, no acute distress and well developed Orientation: Patient oriented x3 Limitations: No limitations Head: Normal to inspection Ears: Hearing grossly normal bilaterally Nose: Normal external nose present Face and sinus: Normal facial exam Eyes: Appearance normal, both eyes and all related structures Neck: Normal visual inspection and Yes full ROM Respiratory: Normal respiratory effort and able to speak in complete sentences. Clear to auscultation bilaterally Cardiovascular: Regular rate and rhythm. Normal S1 and S2 GI: Normal to inspection. Soft to palpation and nontender Skin: Papillary lesions throughout upper torso (singular), possible folliculitis. Dry, papular scabby lesions on scalp. Neuro: Patient oriented x3 Extremities: Normal to inspection Results - Labs: Cholesterol levels are fair Plan 1. Dyslipidemia The patient is advised to work on dietary improvements to manage cholesterol levels and continue with generic Zetia. 2. Hypertension Blood pressure is stable on amlodipine and lisinopril; continue current medications. 3. Risk Of Arrhythmias The patient is advised to reduce the intake of creatinine and pre-workout supplements to mitigate the risk of arrhythmias. 4. Papillary Lesions On Upper Torso The patient is scheduled for a dermatology follow-up in the next month and a half to evaluate the papillary lesions, possibly folliculitis. Discussion Notes I discussed with the patient the importance of reducing creatinine and pre- workout supplements to lower the risk of arrhythmias. We also talked about the need for dietary changes to manage cholesterol levels and the continuation of current medications for hypertension. The patient will follow up with d ermatology for further evaluation of the papillary lesions. Patient Instructions - Reduce intake of creatinine and pre-wo rkout supplements. - Work on dietary improvements to manage cholesterol levels. - Continue taking amlodipine, lisinopril , and generic Zetia as prescribed. - Follow up with dermatology for papilla ry lesions. [facility] Medical History (Updated 05/23/25 @ 11:35 by MONICA Terry) Hypertensive crisis HTN (hypertension) Hypogonadism in male Surgical History S/P excision of lipoma (08/19/23) History of skin surgery Family History Father HTN (hypertension) High cholesterol Paternal Uncle High cholesterol Paternal Grandfather High cholesterol Mother HTN (hypertension) Social History Housing: House Alcohol intake: current Alcohol intake frequency: holidays/special occasions only Patient Tobacco Use Status: Never used Tobacco e-Cigarette/Vaping Use: Never Used Second Hand Smoke Exposure: No service: Yes Current occupational status: employed 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 1. Little interest or pleasure in doing things: not at all 2. Feeling down, depressed, or hopeless: not at all 3. Trouble falling or staying asleep, or sleeping too much: not at all 4. Feeling tired or having little energy: not at all 5. Poor appetite or overeating: not at all 6. Feeling bad about yourself - or that you are a failure or have let yourself or your family down: not at all 7. Trouble concentrating on things, such as reading the newspaper or watching television: not at all 8. Moving or speaking so slowly that other people could have noticed. Or the opposite - being so fidgety or restless that you have been moving around a lot more than usual: not at all 9. Thoughts that you would be better off or of hurting yourself in some way: not at all Total score: 0 Depression Screening Interpretation: Negative Depression Screening Done: Yes 35586 - PHQ-9 Billing: Yes Source: Developed by Drs. Ilir Luo, Deepali Aguero, David Perez and colleagues, with an educational patt from [employer]. Thrive Questionnaire Date Thrive assessed: 11/18/24 I am a: Patient What is your living situation today?: I have a steady place to live Within the past 12 months, did the food you bought not last and you didn't have the money to get more?: Never true Within the past 12 months, did you worry whether your food would run out before you got money to buy more?: Never true Do you have trouble paying for medicines?: No Do you have trouble getting transportation to medical appointments?: No Do you have trouble paying your heating and electricity bill?: No Do you have trouble taking care of your child, family member or friend?: No Do you have trouble with day-to-day activities such as bathing, preparing meals, shopping, managing finances, etc.?: No Are you currently unemployed and looking for a job?: No Are you interested in more education?: No Please select the resources that you would like help with: None Currently or been in a relationship where the following occur: No concerns reported THRIVE Score: 0 ANAY-7 AMB Questionnaire ANAY-7 Date ANAY - 7 assessed: 05/23/25 Feeling nervous, anxious, or on edge: 0 = Not at all Not being able to stop or control worryin = Not at all Worrying too much about different things: 0 = Not at all Trouble relaxin = Not at all Being so restless that it is hard to sit still: 0 = Not at all Becoming easily annoyed or irritable: 0 = Not at all Feeling afraid as if something awful might happen: 0 = Not at all Total ANAY-7 score (0-4 normal; 5-9 mild; 10-14 moderate; 15-21 severe): 0 Source: Developed by Drs. Ilir Luo, Deepali Aguero, David Perez and colleagues, with an educational patt from [employer]. ANAY-7 Assessment Billing ANAY-7 Assessment Tool: ANAY-7 Assessment 67892 Physical exam (Primary Care) Vital Signs: Last Vital Signs Pulse 86 05/23/25 10:26 Resp 16 05/23/25 10:26 BP 128/64 05/23/25 10:26 Pulse Ox 95 05/23/25 10:26 Oxygen Delivery Method Room Air 05/23/25 10:26 BMI result Body Mass Index 31.6 Tobacco/Smoking Status: Tobacco use Status Tobacco use date assessed 05/23/25 05/23/25 10:46 Patient Tobacco Use Status Never used Tobacco 05/23/25 10:28 e-Cigarette/Vaping Use Never Used 05/23/25 10:28 PHQ-9: PHQ-9 Score PHQ-9: Total score 0 05/23/25 10:46 Depression Screening Interpretation: Negative Thrive Assessment: Date of Thrive Assessment Date Thrive assessed 11/18/24 05/23/25 10:28 Currently or been in a relationship where the following occur: No concerns reported Coding Level of Care Code Est Pt Level 3 (15443) Diagnoses Dyslipidemia E78.5 Pruritic rash L28.2 HTN (hypertension) I10 Additional Codes ANAY-7 Assessment Billing - ANAY-7 Assessment Tool: ANAY-7 Assessment 82811 ([id number]) PHQ-9 - 38860 - PHQ-9 Billing: Yes ([id number]) Assessment & Plan Assessment & Plan (1) Dyslipidemia: Code(s): E78.5 - Hyperlipidemia, unspecified Category: Medical (2) Pruritic rash: Code(s): L28.2 - Other prurigo Category: Medical (3) HTN (hypertension): Code(s): I10 - Essential (primary) hypertension Category: Medical Plan . Orders: Orders Comprehensive [place]. Panel Fast Today E78.5 - Hyperlipidemia, unspecified UA CC w/rflx Micro + Cult Today E78.5 - Hyperlipidemia, unspecified Complete Blood Count Auto Diff Today E78.5 - Hyperlipidemia, unspecified Lipid Panel Today E78.5 - Hyperlipidemia, unspecified TSH reflex Free T4 Today E78.5 - Hyperlipidemia, unspecified Medications: New ketoconazole 2% 1 appl topical 2XW 120 mL 0RF cephalexin 500 mg PO BID 14 caps 0RF 7 days
== END 2025-05-23 12:19 | disposition home or self-care (01) ==
LOC: HO.HMCC 10:25
PROVIDERS: PCP Nurse Practitioner Family; Visit Provider Nurse Practitioner Family
DX: E78.5 Hyperlipidemia, unspecified (principal); L28.2 Other prurigo; I10 Essential (primary) hypertension

== ENCOUNTER → 2025-05-23 10:24 | Outpatient (BNVA) | payer OTHER, SELFPAY | PROVIDERS: PCP Nurse Practitioner Family; Visit Provider Nurse Practitioner Family | DX: I10 Essential (primary) hypertension (principal); E78.5 Hyperlipidemia, unspecified; L28.2 Other prurigo; L98.9 Disorder of the skin and subcutaneous tissue, unspecified; Z13.31 Encounter for screening for depression; Z13.39 Encounter for screening examination for other mental health and behavioral disorders | CPT/HCPCS: 96127; 99212 ==

== ENCOUNTER 2025-05-30 15:55 | Outpatient (AMB) | payer OTHER, SELFPAY ==
--- NOTE | 2025-05-30 15:57 | MHC.OFFVIS ---
Intake Visit Reasons: 3m/PSA/CBC/Testo Intake Note: Patient is present for 3M/PSA/CBC/TESTO Urology Medication:TESTOSTERONE Antibiotic Allergy:NONE Blood Thinner:NONE Exhibition Specialist Required: No Allergies No Known Allergies Allergy (Verified 05/30/25 20:37) Medication List - Last Reconciled 05/30/25 by PREETI Thurman- amlodipine 10 mg PO DAILY cephalexin 500 mg PO BID 7 days ezetimibe 10 mg PO DAILY 90 days ketoconazole 2% 1 appl topical 2XW lisinopril 5 mg PO DAILY needle (disp) 25 gauge (BD Regular Bevel Ciales) As directed for testosterone injection syringe (disposable) (BD Luer-Nery Syringe) DIRECTED TWICE WEEKLY testosterone cypionate 75 mg subcut .BIW HPI Comments Details: Antwon is a very pleasant 50 year old male patient of . He presents to the office today for follow-up of his hypogonadism. In discussion with the patient today reports to be doing and feeling well. He reports having experienced intermittent episodes of nocturia 1 time per night and has recently started saw palmetto however has since discontinued this as he is unsure if he found this helpful. He continues to report compliance with testosterone as prescribed. Previously patient had been performing therapeutic phlebotomy due to elevated hemoglobin and hematocrit with his history of hypogonadism on testosterone therapy. However, over the last 6-8 months has not needed to undergo therapeutic phlebotomy. Recent labs were reviewed with the patient today as noted and trended below: PSA 03/26 0.7, 01/25 0.8, 05/27 0.7, 08/28 0.9, 10/26 0.7, 02/25 0.8, 04/28 0.7 Total Testosterone 03/26 885, 07/26 683, 01/25 850, 03/27 352, 05/27 585, 08/28 319, 10/26 480, 02/25 370, 04/28 996 Free testosterone 07/26 165.3, 01/25 158.9, 03/27 117.2, 05/27 122.9, 08/28 86.8, 10/26 114.1, 02/25 92.5, 04/28 312.7 Hemoglobin 03/26 19.1, 07/26 17.7, 01/25 19, 03/27 17.8, 05/27 19.0, 08/28 18.2, 11/26 15.9, 02/25 16.9, 04/28 16.7 Hematocrit 03/26 55.9, 07/26 51.6, 01/25 54.4, 03/27 53.0, 05/27 54.8, 08/28 54.5, 11/26 46.8, 02/25 51.3, 04/28 51.0 Estradiol 01/25 40, 03/27 16, 05/27 31 FSH 05/27 <0.7 LH 05/27 <0.2 Prolactin 05/27 6.0 SHBG 05/27 21 Patient currently wishes to continue with subQ administration of testosterone replacement. We did discuss however further treatment options of hypogonadism such as testopel verses trial of Xyostead. He reports administering 0.375ml of testosterone sub-Q 2 times per week as prescribed. We did discuss elevated testosterone levels as well as affects of this issue. He is aware. He discusses following up with his PCP and having had a recent EKG as he has been utilizing increased amounts of pre workout daily as well as increased amount of protein and creatinine. We did discuss health risks in correlation to pre workout supplements, increased amount of protein, and creatinine. We did discussed referral to Nephrology for further assessment evaluation. He would like to think about this. In office urinalysis results reviewed with the patient today trace proteinuria otherwise within normal limits. We did discussed importance of limiting fluids 2-3 hours prior to bed to decrease episodes of nocturia he is experiencing at a proximally 04:00 as he does report to be drinking 16 oz of fluid prior to bed. He discusses his family history of prostate cancer (father) who is currently undergoing treatment for reoccurrence of prostate cancer. He otherwise offers no other issues or concerns at this time. PREVIOUS OFFICE NOTE INFORMATION Hypogonadism:? Current dosing 50units 2 times weekly ? He presents today for?further evaluation and followup of his hypogonadism - ?- on injectable - Injection Days - Fri/Fri, Labs: Fri pm ?- discussed laboratory results.? Initial symptoms include? erectile dysfunction ?Yes ? decreased libido ?No ? change in mood/depression ?No ? in muscle size/strength ?No ? increased fatigue/malaise ?Yes ? increased abdominal fat ?No ? tender breasts/gynecomastia ?Yes ? hair loss ?No ? osteopenia ?No ? The onset of symptoms has been?over the past few years - 2011 started using testosterone and it. Was using up to 600 mg per week. Currently injecting 200 mg per week. In addition has used anvar and hCG in the past. Has had gynecomastia with discharge. Also used trenbolone. ?- 09/20 - pulsed restart ?- 01/18 clomid 50mg TIW ?- 03/20 clomid daily, 12/20 T replacement 100 units per week subcutaneous, add anastrazole 1/ tab, 03/22 Lower T to 80U per week, ?01/21 reconfirm 80 units per week.? Erectile status?erections are adequate for penetration.? Associate conditions include? other ?external testosterone use ? Laboratory results?12/18 , testosterone 245 , low, LH , low 1.5 ?04/20 T 240, 04/21 T 915, 12/20 T 440, 01/20 High free T, low SHBG, high estradiol ?01/21 T 1200, hCT 52, 07/24 T 423, 01/23 T 622 H 55.6, 07/25 T 670 H 53.4 P 0.60 ? Current therapy includes?injectable exogenous testosterone ?- , aromatase inhibitor - anastrazole 1/4 tablet twice per week ? Prior therapy includes?- pulsed restart - unsuccessful ?- T replacement, aromatase inhibitor ? Diagnosis based on history and laboratory results?Hypogonadotrophic Hypogonadism.? 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 Current occupational exposures/hazards: No Cognitive needs: No Hearing needs: No Vision needs: No Review of Systems Const All systems reviewed & are unremarkable except as noted in HPI and below Physical Exam Const General: cooperative, healthy appearing, comfortable, no acute distress, well developed, alert and awake Orientation/consciousness: patient oriented x3 Limitations: no limitations HEENT Head: Yes normal to inspection, Yes normocephalic and Yes atraumatic Ears: hearing grossly normal bilaterally Eyes General: appearance normal, both eyes and all related structures Neck Neck: Yes normal visual inspection and Yes trachea midline Chest Chest palpation & inspection: normal inspection of the chest Resp Effort & Inspection: normal respiratory effort and able to speak in complete sentences Cardio Rate: regular rate GI Inspection: Yes normal to inspection General: Yes no CVA tenderness Back/Spine/Pelvis Back: no CVA tenderness Skin General skin exam: no rashes or lesions noted Neuro General: patient oriented x3 Extrem General: Yes normal to inspection Psych Appearance: grossly normal and well kempt Mental Status: mental status grossly normal Speech and movement: Clear speech present Affect: normal affect Attitude: cooperative Thought process: Normal thought process present Thought content: Normal thought content present Insight: Fair insight present (Psych) Judgement: Fair judgement present (Psych) Results AMB Urinalysis, Automated UA Leukoctes 0 Mimi/uL Last Edit by LEA Gonzales on 05/30/25 16:22 UA Nitrite Negative Last Edit by Bryan Cobb [facility] on 05/30/25 16:22 UA Urobilinogen 0.2 mg/dL Last Edit by Bryan Cobb [facility] on 05/30/25 16:22 UA Protein 15 mg/dL Last Edit by Bryan Cobb [facility] on 05/30/25 16:22 UA pH 6.0 Last Edit by Bryan Cobb [facility] on 05/30/25 16:22 UA Blood 0 Maurilio/uL Last Edit by Bryan Cobb [facility] on 05/30/25 16:22 UA Specific [place] 1.025 Last Edit by Bryan Cobb [facility] on 05/30/25 16:22 UA Ketone Negative Last Edit by Bryan Cobb [facility] on 05/30/25 16:22 UA Bilirubin 0 mg/dL Last Edit by Bryan Cobb [facility] on 05/30/25 16:22 UA Glucose 0 mg/dL Last Edit by Bryan Cobb [facility] on 05/30/25 16:22 Results Reviewed Results Reviewed: Laboratory Last Values Urine pH (Auto) 6.0 05/30/25 16:21 Specific [place] (Auto) 1.025 05/30/25 16:21 Urine Protein (Auto) 15 mg/dL 05/30/25 16:21 Glucose (UA)(Auto) 0 mg/dL 05/30/25 16:21 Urine Ketones (Auto) Negative 05/30/25 16:21 Urine Blood (Auto) 0 Maurilio/uL 05/30/25 16:21 Urine Nitrite (Auto) Negative 05/30/25 16:21 Urine Bilirubin (Auto) 0 mg/dL 05/30/25 16:21 Urine Urobilinogen (Auto) 0.2 mg/dL 05/30/25 16:21 Leukocyte Esterase (Auto) 0 Mimi/uL 05/30/25 16:21 Assessment & Plan Assessment & Plan (1) Hypogonadism in male: Code(s): E29.1 - Testicular hypofunction Category: Medical Plan In office urinalysis results reviewed with the patient today; as noted above. Recent CBC, PSA, and testosterone free and total results reviewed with the patient today as noted above. Continue testosterone replacement as prescribed; refill provided. We discussed obtaining repeat labs now as well as in 3 months. We discussed importance of limiting fluids 2-3 hours prior to bed in correlation to nocturia. We did discuss potential health issues in relation to patient's current lifestyle. We discussed further treatment options of hypogonadism and risks and benefits of these treatment options. Follow-up in 1-3 months with CBC, PSA, and testosterone to be completed prior; or sooner with any issues, concerns, and or questions. Orders: Orders AMB Urinalysis Automated Today Z13.9 - Encounter for screening, unspecified Testosterone, Free/Total Today E29.1 - Testicular hypofunction Complete Blood Count no Diff Today E29.1 - Testicular hypofunction Complete Blood Count no Diff 3 Months E29.1 - Testicular hypofunction Testosterone, Free/Total 3 Months E29.1 - Testicular hypofunction Prostate Specific Antigen 3 Months E29.1 - Testicular hypofunction Medications: Refilled testosterone cypionate inject 0.375 mls subcutaneously twice a week 75 mg (0.375 mL) subcut QWEEK 4 mL 5RF 28 days E29.1 - Testicular hypofunction Patient Instructions: The patient had an opportunity to ask questions regarding the treatment plan. All questions were answered. Physical exam, labs, and imaging were discussed and reviewed in detail. As well as risks, benefits, and discussion of treatment choices. No major barriers to understanding were identified. The patient expressed understanding and agreement with the above treatment plan. The patient was made aware they should contact our office by phone for worsening of their current condition, the appearance of new symptoms, or with any questions or concerns. Compliance is encouraged with any medications and follow up testing that is ordered. It is a privilege to be allowed the opportunity to participate in? your urological care.? Again, if you have any questions or concerns If you have any questions or concerns please do not hesitate to contact me. The office is [phone]. This note is constructed using voice recognition software. While every effort has been made to ensure accuracy meter repairer helper errors may have been included. Yours sincerely, PREETI Thurman- Coding Level of Care Code Est Pt Level 3 (20046) Complex EM visit Add On G2211 Diagnoses Hypogonadism in male E29.1
== END 2025-05-30 16:38 | disposition home or self-care (01) ==
LOC: HO.HUSH 15:55
PROVIDERS: PCP Nurse Practitioner Family; Visit Provider Nurse Practitioner Family
DX: E29.1 Testicular hypofunction (principal); Z13.9 Encounter for screening, unspecified
CPT/HCPCS: 99213

== ENCOUNTER → 2025-05-30 15:55 | Outpatient (BNVA) | payer OTHER, SELFPAY | PROVIDERS: PCP Nurse Practitioner Family; Visit Provider Nurse Practitioner Family | DX: E29.1 Testicular hypofunction (principal) | CPT/HCPCS: 81003; 99212 ==

== ENCOUNTER 2025-05-31 13:23 | Outpatient (REF) | payer OTHER, SELFPAY ==
[2025-06-05 16:08] LABS: Testosterone, Free 210.6 pg/mL (35.0-155.0)
== END 2025-05-31 13:24 | disposition home or self-care (01) ==
LOC: HO.WFDLDS 13:23
PROVIDERS: Nurse Practitioner Family; Visit Provider Nurse Practitioner Family
DX: E29.1 Testicular hypofunction (principal)
CPT/HCPCS: 36415; 84402; 84403

== ENCOUNTER 2025-05-31 13:27 | Outpatient (REF) | payer OTHER, SELFPAY | END 2025-05-31 13:28 | disposition home or self-care (01) | LOC: HO.WFDLDS 13:27 | PROVIDERS: Visit Provider Nurse Practitioner Family | DX: Z13.89 Encounter for screening for other disorder (principal) ==

== ENCOUNTER 2025-06-14 06:33 | Day surgery (SDC) | payer OTHER, SELFPAY ==
[2025-06-10 14:22] VITALS: BMI 31.6
--- NOTE | 2025-06-13 14:05 | P.CONAN_ITS ---
Documented by User: Cadence Valles NP 06/13/25 14:06 HPI - Anesthesia Eval Consult details Narrative: 50yo M for Colonoscopy PMFSH Active Problems Active Problems: All Active Problems HTN (hypertension) (Acute) Pruritic rash (Acute) Irritant contact dermatitis of scalp (Acute) Elevated serum creatinine (Acute) Right shoulder pain (Acute) Polycythemia (Acute) Numbness and tingling in left hand (Acute) Lipoma (Acute) Elevated hemoglobin (Acute) Physical exam (Acute) Post-COVID chronic dyspnea (Acute) Liver cyst (Acute) Kidney cysts (Acute) Dyslipidemia (Acute) Elevated liver enzymes (Acute) Skin lesion (Acute) Immunizations incomplete (Acute) Family hx of prostate cancer (Acute) Encounter for screening for COVID-19 (Acute) Encounter for physical examination (Acute) Hypertension, goal to be determined (Acute) Medial meniscus tear (Acute) Hypogonadism in male (Acute) Past Medical History Medical History Hypertensive crisis HTN (hypertension) Hypogonadism in male Family History Family History Father HTN (hypertension) High cholesterol Paternal Uncle High cholesterol Paternal Grandfather High cholesterol Mother HTN (hypertension) Family history of problems with anesthesia: No Surgical History Surgical History S/P colonoscopic polypectomy S/P excision of lipoma (08/19/23) History of skin surgery History of Problems with Anesthesia: No Social History Social History Housing: House Alcohol intake: current Alcohol intake frequency: holidays/special occasions only Patient Tobacco Use Status: Never used Tobacco e-Cigarette/Vaping Use: Never Used Second Hand Smoke Exposure: No Use of substances other than those prescribed or required for medical reasons: No Are you DNR?: No Advance Directives: No Advance Directives Information Provided: Yes service: Yes Current occupational status: employed 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 Current occupational exposures/hazards: No Cognitive needs: No Hearing needs: No Vision needs: No Meds Allergies Allergy/AdvReac Type Severity Reaction Status Date / Time No Known Allergies Allergy Verified 05/30/25 20:37 Home Medications ?Medication ?Instructions ?Recorded ?Confirmed ?Last Taken ?Type testosterone cypionate 200 mg/mL 75 mg subcut 2XW 02/2506/10/25 Unknown History intramuscular oil Exam Height,Weight and Vital Signs: Height 6 ft Weight 105.687 kg Pertinent Lab Results Pertinent Lab Results: Laboratory Tests 04/14/25 05/18/25 08:48 08:36 WBC 6.9 Hgb 16.7 Hct 51.0 Plt Count 155 L Sodium 140 Potassium 4.1 Chloride 107 Carbon Dioxide 27 BUN 20 H Creatinine 1.36 Assessment and Plan Assessment Anesthesia Assessment: Chart Reviewed Final Anesthetic Review Family History of Problems with Anesthesia: No History of Problems with Anesthesia: No Documented by User: Inocente Molbey MD 06/14/25 07:29 [facility] Past Medical History Medical History Hypertensive crisis HTN (hypertension) Hypogonadism in male Family History Family History Father HTN (hypertension) High cholesterol Paternal Uncle High cholesterol Paternal Grandfather High cholesterol Mother HTN (hypertension) Surgical History Surgical History S/P colonoscopic polypectomy S/P excision of lipoma (08/19/23) History of skin surgery Social History Social History Housing: House Alcohol intake: current Alcohol intake frequency: holidays/special occasions only Patient Tobacco Use Status: Never used Tobacco e-Cigarette/Vaping Use: Never Used Second Hand Smoke Exposure: No Use of substances other than those prescribed or required for medical reasons: No Are you DNR?: No Advance Directives: No Advance Directives Information Provided: Yes service: Yes Current occupational status: employed 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 Current occupational exposures/hazards: No Cognitive needs: No Hearing needs: No Vision needs: No Meds Allergies Allergy/AdvReac Type Severity Reaction Status Date / Time No Known Allergies Allergy Verified 05/30/25 20:37 Home Medications ?Medication ?Instructions ?Recorded ?Confirmed ?Last Taken ?Type testosterone cypionate 200 mg/mL 75 mg subcut 2XW 02/2506/10/25 Unknown History intramuscular oil Exam Exam Date and Time: 06/14/25 Airway Mallampati Class: II TM Dist: >3cm Neck ROM: Full Loose/Missing/Broken Teeth: Yes (chipped #4) Heart: rrr Lungs: ctab vesicular Assessment and Plan Assessment Anesthesia Assessment: Anesthesia Plan Discussed Final Anesthetic Review NPO: Yes ASA Class: II Final Preanesthetic Review: No Changes in Pt Med Stat, Meds/Allgs Chart Reviewed, Consent Obtained/Reviewed and Anes Risks/Benef Reviewed Patient Risk: Low Procedure Risk: Low Anesthetic Plan Anesthetic Plan: MAC: Disposition: Standard PACU
[2025-06-14 06:41] VITALS: BMI 31.0
--- NOTE | 2025-06-14 06:46 | MHC.SHP ---
Pre-Procedural Eval Section A - 24 Hr Update-Section A only Date of Service: 06/14/25 Section B - Complete if H&P > 30 days Chief Complaint: screening Relevant Family History (Specify if Yes): No Relevant Social History: None Present Medications: see Short Stay Collaborative assessment Medical History: Significant History (Hypertensive crisis HTN (hypertension) Hypogonadism in male) History of Previous Operations: Relevant previous surgery/procedure and date(s) (S/P excision of lipoma (08/19/23) History of skin surgery) Allergies: Allergies Allergy/AdvReac Type Severity Reaction Status Date / Time No Known Allergies Allergy Verified 05/30/25 20:37 Review of Systems Sugical H&P ROS: Negative: Constitution, Cardiovascular, Respiratory, Neurological, Psychiatric, Hem-Onc, Allergic/Immunologic, Gastrointestinal, Genitourinary, Musculoskeletal, Integumentary, Endocrine and Eyes/Ears/Nose/Throat Exam Surgical H&P Exam: Normal: HEENT, Normal: Heart, Normal: Lungs, Normal: Extremities, Normal: Abdomen, Normal: Skin and Normal: Neurological Plan Diagnosis/Plan: Unchanged I have reviewed the history and physical and performed a pertinent physical examination on my patient. No changes have occurred unless specified. Time Spent With Patient Time: Total time managing care of this patient today ____ minutes.
[2025-06-14 06:49] VITALS: BP 134/86; PULSE 77; RESP 16; TEMP 36.9; O2SAT 94
[2025-06-14] MEDS: Lactated Ringers 1,000 ML 100 ML IVCONT (07:02)
--- NOTE | 2025-06-14 08:07 | P.OPN-COLO_ITS ---
Colonoscopy Operative Note Operative Note Date of Service: 06/14/25 Narrative: Operative Information Procedure Description: Colonoscopy Indication: hx of colon polyps Anesthesia: MAC COLONOSCOPY Instrument: Olympus variable stiffness pediatric scope 190L Colonoscopy Monitoring: Vital signs and clinical assessment, continuous EKG monitoring, Pulse oximetry, Carbon Dioxide monitoring and blood pressure monitoring were done throughout the procedure. Colon withdrawal time was 14 minutes. Procedure: The patient was placed in the left lateral decubitis position and pre-procedure medications were administered. After a digital rectal examination of the ano-rectum, the video colonoscope was inserted into the rectum and advanced through the colon to the cecum/TI. The colonoscope was slowly withdrawn in a retrograde panoramic fashion and the colon mucosa was carefully examined including a retroflexed view of the rectum. Findings and interventions are described below. Procedure Difficulty: easy Findings: Terminal Ileum-normal Cecum:normal Ascending Colon: 10-11 mm flat polyp with fecal cap, lifted with eleview and removed with cold snare Transverse Colon -normal Descending Colon:normal Sigmoid Colon: normal Rectum: Retroflexion with small internal hemorrhoids seen, grade I Anorectum - normal Intervention: cold snare and eleview Colon preparation: [place] Bowel Preparation Scale Right colon; 2 Transverse colon: 2 Left colon; 2 (0 = Unprepared colon segment with mucosa not seen due to solid stool that cannot be cleared. 1 = Portion of mucosa of the colon segment seen, but other areas of the colon segment not well seen due to staining, residual stool and/or opaque liquid. 2 = Minor amount of residual staining, small fragments of stool and/or opaque liquid, but mucosa of colon segment seen well. 3 = Entire mucosa of colon segment seen well with no residual staining, small fragments of stool or opaque liquid) Impression and Post Procedure Diagnosis: colon polyp x 1 internal hemorrhoids Plan: High fiber diet leaflet Avoid straining at stool, epsom salts and sitz bath, anusol supps or cream Repeat Colonoscopy in 2-3 years or earlier if clinically indicated Above findings were reviewed with the patient and relevant handouts were provided if indicated.
[2025-06-14 08:10] VITALS: BP 103/71; PULSE 62; RESP 15; TEMP 36.4; O2SAT 99
[2025-06-14 08:25] VITALS: BP 103/70; PULSE 65; RESP 18; O2SAT 94
== END 2025-06-14 09:11 | disposition home or self-care (01) ==
PROVIDERS: PCP Nurse Practitioner Family; Visit Provider Internal Medicine Gastroenterology
PROC: 0DJD8ZZ Inspection of Lower Intestinal Tract, Via Natural or Artificial Opening Endoscopic (ICD-10-PCS; CPT 45378; principal; 2025-06-14 07:30)
DX: Z12.11 Encounter for screening for malignant neoplasm of colon (principal); Z86.0101 Personal history of adenomatous and serrated colon polyps; K64.0 First degree hemorrhoids; D12.2 Benign neoplasm of ascending colon
CPT/HCPCS: 45385; 45381; 88305; J2704

== ENCOUNTER → 2025-06-14 06:33 | Outpatient (BNV) | payer OTHER, SELFPAY | PROVIDERS: PCP Nurse Practitioner Family; Visit Provider Internal Medicine Gastroenterology | DX: Z12.11 Encounter for screening for malignant neoplasm of colon (principal); K63.5 Polyp of colon; K64.0 First degree hemorrhoids | CPT/HCPCS: 45381; 45385 ==